=== PATIENT | female | born 1955 | race Caucasian/White ===

== ENCOUNTER 2019-05-04 13:04 | Outpatient (CLI) | payer MEDICAID, SELFPAY ==
[2019-05-04 14:28] LABS: Basophils % 0.7 %; Eosinophils # 0.2 10^3/uL (0.0-0.8); Eosinophils % 3.9 %; Hematocrit 38.1 % (37.0-47.0); Hemoglobin 11.9 g/dL (11.5-15.3); Lymphocytes % 17.6 %; Mean Corpuscular HGB Conc 31.2 g/dL (30.0-36.0); Mean Corpuscular Hemoglobin 30.1 pg (28.0-34.0); Mean Corpuscular Volume 96.5 fL (81-99); Mean Platelet Volume 10.3 fL (7.4-10.4); Monocytes # 0.6 10^3/uL (0.2-0.9); Monocytes % 11.8 %; Neutrophils # 3.6 10^3/uL (1.8-7.7); Neutrophils % 65.6 %; Nucleated Red Blood Cells % 0 %; Platelet Count 257 10^3/cmm (130-400); Red Blood Count 3.95 10^6/uL (4.1-5.3); Red Cell Distribution Width 14.8 % (12.1-15.1); White Blood Count 5.4 10^3/uL (4.0-10.0)
[2019-05-04 14:58] LABS: Alanine Aminotransferase 15 U/L (0-33); Albumin Level 3.5 g/dL (3.5-5.2); Alkaline Phosphatase 65 IU/L (35-105); Aspartate Amino Transferase 15 U/L (0-32); Blood Urea Nitrogen 17 mg/dL (8-23); Calcium 7.9 mg/Dl (8.8-10.2); Carbon Dioxide 25 mmol/L (22-29); Chloride 95 mmol/L (98-107); Globulin 2.6 g/dL (1.3-4.6); Glucose 78 mg/dL (74-106); Sodium 137 mmol/L (136-145); Total Bilirubin 0.4 mg/dL (0.15-1.2); Total Protein 6.1 g/dL (6.6-8.7)
== END 2019-05-04 13:05 | disposition home or self-care (01) ==
LOC: ONCMED 17:04
PROVIDERS: Visit Provider Internal Medicine Hematology & Oncology
DX: C54.1 Malignant neoplasm of endometrium (principal); C79.51 Secondary malignant neoplasm of bone; C64.9 Malignant neoplasm of unspecified kidney, except renal pelvis
CPT/HCPCS: 80053; 85025

== ENCOUNTER 2019-05-09 13:40 | Outpatient (CLI) | payer MEDICAID, SELFPAY ==
[2019-05-09] MEDS: denosumab 120 mg SDV SUBCUT (14:31)
--- NOTE | 2019-05-15 09:45 | ONC FU_ITS ---
Delfina Tolentino Patient Note Patient: Shamika Hickman Unit #: [id number]: [id number] Dictated By: Tiffany DavenportDate of Visit: May 09, 2019 Onc MED Follow-Up/Prog Note Chief Complaint: Metastatic renal cell carcinoma History of Present Illness: Mrs. Shamika Hickman is a 63-year-old female who was recently diagnosed with metastatic renal cell carcinoma as per patient and medical record in 2012 she developed postmenopausal bleeding and was diagnosed with ER/OR positive endometrial carcinoma FIGO grade 1, and CT scan of abdomen showed right ovarian mass, lytic bone lesion, left renal mass and indeterminate inguinal and iliac lymphadenopathy . And then patient had some social issues she moved from [place] to [place] close to her family and recently she was evaluated by DES[employer] CELL [employer]INEER and urologist for combined cytoreductive nephrectomy and hysterectomy. In January this year she underwent left lateral lymph node biopsy and cytology was negative in late January 2018 she sustained a pathological fracture of left humerus which he was initially treated with splinting and eventually seen by Dr. Ivan and on 03/15/2018 she underwent left humerus ORIF, curettage and cementation. The pathology confirmed metastatic clear cell carcinoma and she also underwent T9 core biopsy which was also consistent with clear cell carcinoma and she has not undergone any further workup for ovarian mass. Given her evidence of metastatic involvement cytoreductive nephrectomy and hysterectomy was put on hold. Patient was referred to [facility] in [place] , on 03/22/[address] Sebastian Spencer who recommended and started her on cabozantinib 20 mg by mouth daily, and also recommended noncontrasted CT scan of chest abdomen pelvis and bone scan but patient did not go for that because of transportation issues. And CT scan of chest abdomen pelvis done on 05/12/2018 showed bilateral upper and midlung zone innumerable less than 5 mm pulmonary nodules e.g. metastatic disease versus atypical pneumonia. cabometyx was increased to 40 milligrams daily tolerated well with normal blood counts and her dose was increased to 60 mg by mouth daily on 07/28/2018 Mild cardiomegaly Left kidney superior pole 5.3 x 6.5% 0.5 cm mass No significant change in right radial mixed solid and cystic mass with calcifications Mild bilateral inguinal lymphadenopathy. Bone scan done on 05/12/2018 showed right sixth rib, distal sternum and left humerus metastatic disease status post left humerus fracture with internal fixation Chronic renal failure on hemodialysis MRI of the head without contrast from 07/14/2017 reported T2 hyperintense soft tissue nodule involving the right parietal occipital calvarium. This involves the inner outer tables with extension into the scalp. This lesion measures approximately 1.5 x 1.6 x 1.8 cm suspicious for metastatic disease. No other visualized calvarial lesions. Mild small vessel changes with moderate parenchymal volume loss. Partial opacification mastoid air cells bilaterally. Single punctuate focus of hemosiderin in the left frontal white matter. No other significant findings. Referred to radiology for CT-guided biopsy of scalp mass Which confirmed clear cell carcinoma Underwent excision of this mass on 09/22/2018 final pathology report showed metastatic clear cell carcinoma Follow-up CT scan of chest abdomen pelvis done on 12/22/2018 showed resolved previously widespread nodularity of lung parenchyma since 05/12/2018 Stable parenchymal scarring left upper and lower lobes Improvement in the previous bilateral axillary lymphadenopathy Lytic bony metastatic disease with mixed therapeutic response. Decrease in bulk of previous upper pole left renal mass Progressive lytic metastatic disease of L2 vertebra and new lytic lesion of right L4 transverse process. Marginal increase in size of right ovarian mass Improvement in previous mild bilateral inguinal lymphadenopathy CT scan of head done on 12/30/2018 showed no evidence of intracranial hemorrhage or mass effect right partial craniotomy with mesh cranioplasty. Patient was referred to [facility] oncology in [place] where she saw Dr. Otoole on 01/25/2019 and as per her evaluation she is recommended Femara 2.5 mg by mouth daily for her newly diagnosed endometrial cancer and also wants to review and discuss regarding timing of surgery. Patient had episode of TIA on 03/05/2019 for which she was admitted to hospital and CT scan of head was done on 03/05/2019 which showed no evidence of brain metastases or any acute changes. Patient presented with difficulty in speech and confusion but during hospital stay she improved no TPA was considered because of history of renal cell carcinoma with brain metastases Ms. Hickman is here today for follow-up. She continues with the cabometyx for the renal cancer and Femara for the endometrial cancer. She is due for Xgeva today due to bone involvement. This will be her third dose according to our chart. She has tolerated the Xgeva well. She states in regard to the cabometyx she has had significant diarrhea. She states she has been taking 2 tablets daily but has had so much diarrhea she has had hard to make it to the stool sometimes. She has tried [id number] Imodium once in a while but does not always have it available due to pricing. She states it has not worked that well anyway. She does continue with dialysis 3 times a week. She denies any fever or chills. She is had no nausea or vomiting. She denies any new pain. She is had no mouth sores, sore throat or difficulty swallowing. Her energy is marginal. She states her appetite is fair. Her ECOG is 2. Past Medical History: Chronic kidney disease Congestive heart failure Depression Endometrial cancer Hyperlipidemia Hypertension Ovarian mass Peripheral neuropathy Pulmonary hypertension Type II diabetes Past Surgical History: Hernia repair Left humerus ORIF Left inguinal lymph node biopsy Allergies: No Known Allergies. Medications: AmLODIPine Besylate 1 (10 mg) Tablet Oral daily Calcium Acetate (Phos Binder) 2 Capsule (of 667 mg) Tablet Oral t.i.d. carbometyx 60 mg (of 20 mg) Tablet Oral daily D-1000 1 Tablet (of 1000 Units) Oral daily Furosemide 1 Tablet (of 40 mg) Oral daily HumaLOG Subcutaneous HydrALAZINE HCl 1 (25 mg) Tablet Oral four times a day MetOLazone 1 Tablet (of 5 mg) Oral b.i.d. Metoprolol Tartrate 1 (25 mg) Tablet Oral b.i.d. Senna-Plus 2 (8.6-50 mg) Tablet Oral b.i.d. Simvastatin 1 (40 mg) Tablet Oral at bedtime Sodium Bicarbonate 1 Tablet (of 650 mg) Oral daily Family History: Ms. Hickman's mother at age 80: aneurysm. Ms. Hickman's father at age 70: Cancer. Social History: Ms. Hickman is single and she is a disabled. Ms. Hickman has never smoked. She has no history of drinking. Review Of Symptoms: Constitutional Denies fevers, chills, night sweats, excessive fatigue or weight loss. Allergic/Immunologic No reactions. Eyes Denies significant visual changes. No diplopia. No amaurosis. ENMT Denies changes in hearing, sore throat, mouth sores, difficulty or changes in swallowing ability, and/or sinus drainage. Endocrine No diabetes, thyroid disease or hormone replacement. Denies hot flashes or night sweats. Hematologic/Lymphatic Denies easy bruising or bleeding. The patient denies any tender or palpable lymph nodes. Respiratory Denies dyspnea on exertion, chest pain, cough or hemoptysis. Denies orthopnea. Cardiovascular Denies anginal chest pain, palpitations or orthopnea. Gastrointestinal Denies nausea, vomiting, GI bleeding, or constipation. Denies change in bowel habits and/or stool color, no heartburn or early satiety. Diarrhea with cabometyx. Genitourinary (F) No hematuria, hesitancy, incontinence, vaginal bleeding, discharge or other problems with urination. Musculoskeletal Denies joint pain, swelling or redness. No decreased range of motion. Integumentary Denies chronic rashes, inflammation, ulcerations or skin changes. Neurologic Denies headache, blurred vision, and no areas of focal weakness or numbness. Normal gait. No sensory problems. Psychiatric Denies insomnia, depression, casi or mood swings. Vital Signs: Performed on May 09, 2019 13:51 Height - 62.00 in Weight - 169.8 lbs (HIGH) BSA - 1.78 sq.m BMI - 31.06 (HIGH) Temperature - 97.3 F (LOW) Pulse - 72 /min Respiration - 24 /min BP - 164/92 mm(hg) (HIGH) O2 Sat - 98 % Pain - 0,2 - Ambulatory/capable of all self-care, unable to perform any work activities. Up and about more than 50% of waking hours. (ECOG) Physical Examination: Constitutional Alert, oriented, no acute distress. Skin pink, warm and dry. Head Normocephalic; atraumatic. She has a nodule on the posterior aspect of the right side of her calvarium. Eyes Conjunctivae and sclerae are clear and without icterus. Pupils are reactive and equal. ENMT Sinuses are nontender. No oral exudates, ulcers, masses, thrush or mucositis. Oropharynx clear. Tongue normal. Neck Supple without masses or thyromegaly. No jugular venous distension. Hematologic/Lymphatic No petechiae or purpura. No tender or palpable lymph nodes in the cervical or supraclavicular areas. Respiratory Lungs are clear to auscultation without rhonchi or wheezing. Cardiovascular Regular rate and rhythm of heart without murmurs,clicks, gallops or rubs. Abdomen Non-tender, non-distended, no masses, ascites. Good bowel sounds noted in all quads. No guarding or rebound tenderness. No pulsatile masses. Back/Spine Non-tender to palpation. Extremities No visible deformities, no cyanosis, clubbing or edema. Pulses 4+ and equal bilaterally. Musculoskeletal No tenderness or swelling, normal range of motion without obvious weakness. Integumentary No rashes or lesions. Neurologic No sensory or motor deficits, normal cerebellar function, normal gait. Psychiatric Alert and oriented times three. Coherent speech. Verbalizes understanding of our discussions today. Laboratory:Test performed on May 04, 2019 09:20 Glucose 78 mg/dL BUN 17 mg/dL Creatinine 6.1 mg/dL Cr Clearance (Est) 11.78 mL/min Sodium 137 mmol/L Potassium 3.0 mmol/L Chloride 95 mmol/L CO2 25 mmol/L Calcium 7.9 mg/dL Protein, Total 6.1 g/dL Albumin 3.5 g/dL Globulin 2.6 g/dL Bilirubin, Total 0.4 mg/dL Alkaline Phosphatase 65 IU/L AST (SGOT) 15 IU/L ALT (SGPT) 15 IU/L WBC 5.4 10^9/L RBC 3.95 10^12/L HGB 11.9 g/dL HCT 38.1 % MCV 96.5 fl MCH 30.1 pg MCHC 31.2 g/dL RDW 14.8 % Platelet Count 257 10^9/L MPV 10.3 fL Neutrophils (Gran) 3.6 10^9/L Lymphocytes 1.0 10^9/L Monocytes 0.6 10^9/L Eosinophils 0.2 10^9/L Basophils 0.0 10^9/L Neutrophil % 3.9 % Manual Lymphocytes 17.6 % Manual Monocytes 11.8 % Manual Eosinophils 3.9 % Manual Basophils 0.7 % NRBCs 0.0 /100 WBC Test performed on Jan 03, 2019 10:02 CA-125 54.6 U/mL Impression: Metastatic renal cell carcinoma with left humerus involvement status post left humeral fracture status post ORIF in February 2018 and T9, confirmed with biopsy On cabometyx 40 mg by mouth daily Grade 1 endometrial carcinoma further treatment e.g. hysterectomy is on hold because of recently diagnosed metastatic renal cell carcinoma. Now on Femara 2.5 mg daily Ovarian mass of unknown etiology, oophorectomy is on hold because of above-mentioned issue. History of pulmonary hypertension History of chronic renal disease .On hemodialysis now CT scan of chest abdomen pelvis done on 05/12/2018 showed bilateral upper and mid lung zone innumerable less than 5 mm pulmonary nodules metastatic disease versus atypical pneumonia Multiple osseous metastatic disease potential involvement of T9 Bilateral axillary lymphadenopathy may be reactive due to edema or metastatic disease cannot be excluded. Left kidney is. Pole 5.3 x 6.5 x 7.5 No significant change in right ovarian mixed solid and cystic mass with calcification malignant ovarian neoplasm within the differential .Bone scan done on 05/12/2018 showed increase uptake in right lateral sixth rib, distal sternum, left humerus and status post fixation pathological fracture left humerus, increasing uptake throughout the largest portion of left humerus MRI of the head without contrast from 07/14/2017 reported T2 hyperintense soft tissue nodule involving the right parietal occipital calvarium. This involves the inner outer tables with extension into the scalp. This lesion measures approximately 1.5 x 1.6 x 1.8 cm suspicious for metastatic disease. No other visualized calvarial lesions. Mild small vessel changes with moderate parenchymal volume loss. Partial opacification mastoid air cells bilaterally. Single punctuate focus of hemosiderin in the left frontal white matter. No other significant findings. Underwent excisional biopsy on 09/22/2018 showed metastatic clear cell carcinoma. Plan: 1. Hold cabometyx today until followup due to significant diarrhea. She is due to increase her dose to 3 tablets (from 2 tablets daily) next week. 2. Her potassium from 05/04/2019 was 3.0. Will replace potassium today although diarrhea has improved. 3. Potassium and Lomotil to [facility] in [place]. We did discuss hydration today but she felt she had improved and didn't want to do that today. 4. Xgeva 120 mg due today-will proceed. 5. Continue Femara for endometrial cancer. 6. Return in 1 week for followup with Dr Brady for further plan of care. CBC, CMP at followup. 7. Labs from 05/04/2019 were reviewed in detail and discussed with Ms. Hickman and a copy was given to her. WBC 5.4, hemoglobin 11.9, platelets 257,000 ANC is 3600 potassium 3.0 random glucose was 78 creatinine 6.1 (on dialysis) LFTs are normal alkaline phosphatase was 65. 8. Ms. Hickman was instructed to contact us in the interim should questions or problems arise. Signed By: Tiffany Davenport-, AOCNP Darling Brady MD <<Signature on File>>
== END 2019-05-09 13:41 | disposition home or self-care (01) ==
LOC: ONCMED 13:42
PROVIDERS: Visit Provider Nurse Practitioner
DX: C79.51 Secondary malignant neoplasm of bone (principal); C54.1 Malignant neoplasm of endometrium; C64.2 Malignant neoplasm of left kidney, except renal pelvis; I51.7 Cardiomegaly; N18.6 End stage renal disease; R19.7 Diarrhea, unspecified; R91.8 Other nonspecific abnormal finding of lung field; N83.201 Unspecified ovarian cyst, right side; I13.2 Hypertensive heart and chronic kidney disease with heart failure and with stage 5 chronic kidney disease, or end stage renal disease; I50.9 Heart failure, unspecified; G62.9 Polyneuropathy, unspecified; I27.20 Pulmonary hypertension, unspecified; E11.22 Type 2 diabetes mellitus with diabetic chronic kidney disease; Z99.2 Dependence on renal dialysis; Z17.0 Estrogen receptor positive status [ER+]; Z79.899 Other long term (current) drug therapy; Z79.4 Long term (current) use of insulin; Z79.811 Long term (current) use of aromatase inhibitors; Z86.73 Personal history of transient ischemic attack (TIA), and cerebral infarction without residual deficits
CPT/HCPCS: 36415; 80048; 83735; 85025; 96372; 99214; J0897

== ENCOUNTER 2019-05-18 05:39 | Outpatient (RCR) | payer MEDICAID, SELFPAY ==
[2019-05-16 12:53] LABS: Basophils # 0.1 10^3/uL (0.0-0.1); Basophils % 0.8 %; Eosinophils # 0.2 10^3/uL (0.0-0.8); Eosinophils % 3.1 %; Hematocrit 35.4 % (37.0-47.0); Hemoglobin 11.2 g/dL (11.5-15.3); Lymphocytes # 1.1 10^3/uL (0.8-4.8); Lymphocytes % 17.8 %; Mean Corpuscular HGB Conc 31.6 g/dL (30.0-36.0); Mean Corpuscular Hemoglobin 29.9 pg (28.0-34.0); Mean Corpuscular Volume 94.4 fL (81-99); Mean Platelet Volume 10.7 fL (7.4-10.4); Monocytes # 0.5 10^3/uL (0.2-0.9); Monocytes % 8.4 %; Neutrophils # 4.5 10^3/uL (1.8-7.7); Neutrophils % 69.6 %; Nucleated Red Blood Cells % 0 %; Platelet Count 251 10^3/cmm (130-400); Red Blood Count 3.75 10^6/uL (4.1-5.3); Red Cell Distribution Width 14.6 % (12.1-15.1); White Blood Count 6.4 10^3/uL (4.0-10.0)
[2019-05-16 13:06] LABS: Anion Gap 19.2 (5-19); Blood Urea Nitrogen 16 mg/dL (8-23); Carbon Dioxide 24 mmol/L (22-29); Chloride 99 mmol/L (98-107); Glomerular Filtration Rate 7.3 mL/min (90-130); Glucose 78 mg/dL (74-106); Magnesium 1.6 mg/dL (1.7-2.3); Potassium 4.2 mmol/L (3.5-5.1); Sodium 138 mmol/L (136-145)
--- NOTE | 2019-05-18 14:32 | ONC FU_ITS ---
Dr. Brady follow up note Patient: Shamika Hickman Unit #: [id number]: [id number] Dicatated By: Nathan Brady M.D.Date of Visit:May 18, 2019 Onc Med Follow-up/Prog Note History of Present Illness: Mrs. 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 In January this year she underwent left lateral lymph node biopsy and cytology was negative in late January 2018 she sustained a pathological fracture of left humerus which he was initially treated with splinting and eventually seen by Dr. Ivan and on 03/15/2018 she underwent left humerus ORIF, curettage and cementation. The pathology confirmed metastatic clear cell carcinoma and she also underwent T9 core biopsy which was also consistent with clear cell carcinoma and she has not undergone any further workup for ovarian mass. Given her evidence of metastatic involvement cytoreductive nephrectomy and hysterectomy was put on hold. Patient was referred to [facility] in [place] , on 03/22/[address] Sebastian Spencer who recommended and started her on cabozantinib 20 mg by mouth daily, and also recommended noncontrasted CT scan of chest abdomen pelvis and bone scan but patient did not go for that because of transportation issues. And CT scan of chest abdomen pelvis done on 05/12/2018 showed bilateral upper and midlung zone innumerable less than 5 mm pulmonary nodules e.g. metastatic disease versus atypical pneumonia. cabometyx was increased to 40 milligrams daily tolerated well with normal blood counts and her dose was increased to 60 mg by mouth daily on 07/28/2018 Mild cardiomegaly Left kidney superior pole 5.3 x 6.5% 0.5 cm mass No significant change in right radial mixed solid and cystic mass with calcifications Mild bilateral inguinal lymphadenopathy. Bone scan done on 05/12/2018 showed right sixth rib, distal sternum and left humerus metastatic disease status post left humerus fracture with internal fixation Chronic renal failure on hemodialysis MRI of the head without contrast from 07/14/2017 reported T2 hyperintense soft tissue nodule involving the right parietal occipital calvarium. This involves the inner outer tables with extension into the scalp. This lesion measures approximately 1.5 x 1.6 x 1.8 cm suspicious for metastatic disease. No other visualized calvarial lesions. Mild small vessel changes with moderate parenchymal volume loss. Partial opacification mastoid air cells bilaterally. Single punctuate focus of hemosiderin in the left frontal white matter. No other significant findings. Referred to radiology for CT-guided biopsy of scalp mass Which confirmed clear cell carcinoma Underwent excision of this mass on 09/22/2018 final pathology report showed metastatic clear cell carcinoma .Follow-up CT scan of chest abdomen pelvis done on 12/22/2018 showed resolved previously widespread nodularity of lung parenchyma since 05/12/2018 Stable parenchymal scarring left upper and lower lobes Improvement in the previous bilateral axillary lymphadenopathy Lytic bony metastatic disease with mixed therapeutic response. Decrease in bulk of previous upper pole left renal mass Progressive lytic metastatic disease of L2 vertebra and new lytic lesion of right L4 transverse process. Marginal increase in size of right ovarian mass Improvement in previous mild bilateral inguinal lymphadenopathy CT scan of head done on 12/30/2018 showed no evidence of intracranial hemorrhage or mass effect right partial craniotomy with mesh cranioplasty. Patient was referred to [facility] oncology in [place] where she saw Dr. Otoole on 01/25/2019 and as per her evaluation she is recommended Femara 2.5 mg by mouth daily for her newly diagnosed endometrial cancer and also wants to review and discuss regarding timing of surgery. Patient had episode of TIA on 03/05/2019 for which she was admitted to hospital and CT scan of head was done on 03/05/2019 which showed no evidence of brain metastases or any acute changes. Patient presented with difficulty in speech and confusion but during hospital stay she improved no TPA was considered because of history of renal cell carcinoma with brain metastases She continues with the cabometyx for the renal cancer and Femara for the endometrial cancer.And on monthly Xgeva. Episode of diarrhea which improved with holding off cabometyx but patient said she started taking 40 mg daily for 2 days then gone up to schedule dose 60 mg daily 3 days ago now tolerating well with mild diarrhea, which is improving. Clinically as per patient she has history of constipation for which she took milk of magnesia on a regular basis and also last month she was treated with oral antibiotics that could be also contributing to her diarrhea. Otherwise no fever or chills no nausea or vomiting no abdominal pain no constipation but 2-3 well formed bowel movements per day no hematuria or dysuria. Tolerating cabometyx well otherwise Medications: AmLODIPine Besylate 1 (10 mg) Tablet Oral daily, Calcium Acetate (Phos Binder) 2 Capsule (of 667 mg) Tablet Oral t.i.d., carbometyx 60 mg (of 20 mg) Tablet Oral daily, D-1000 1 Tablet (of 1000 Units) Oral daily, Furosemide 1 Tablet (of 40 mg) Oral daily, HumaLOG Subcutaneous, HydrALAZINE HCl 1 (25 mg) Tablet Oral four times a day, MetOLazone 1 Tablet (of 5 mg) Oral b.i.d., Metoprolol Tartrate 1 (25 mg) Tablet Oral b.i.d., PROzac 1 Capsule (of 20 mg) Oral daily, Senna-Plus 2 (8.6-50 mg) Tablet Oral b.i.d., Simvastatin 1 (40 mg) Tablet Oral at bedtime, Sodium Bicarbonate 1 Tablet (of 650 mg) Oral daily Allergies: No Known Allergies. Review of Systems: Review of Systems is not available for this patient. Vital Signs: Performed on May 18, 2019 13:03 Height - 62.00 in Weight - 166.8 lbs (LOW) BSA - 1.77 sq.m BMI - 30.51 (HIGH) Temperature - 98.2 F (LOW) Pulse - 78 /min Respiration - 24 /min BP - 161/80 mm(hg) (HIGH) O2 Sat - 97 % Pain - 0 Performance Status: 2 - Ambulatory/capable of all self-care, unable to perform any work activities. Up and about more than 50% of waking hours. (ECOG) Physical Examination: ENMT - No oral exudates, ulcers, masses, thrush or mucositis. Oropharynx clear. Tongue normal, Respiratory - Lungs are clear to auscultation without rhonchi or wheezing, Cardiovascular - Regular rate and rhythm of heart, Abdomen - Non-tender, non-distended, Good bowel sounds. No guarding or rebound tenderness. No pulsatile masses, Extremities - 1+ edema. Lab/Imaging: Test performed on May 04, 2019 09:20 Cr Clearance (Est) 11.78 mL/min Alkaline Phosphatase 65 IU/L Neutrophils (Gran) 3.6 10^9/L Eosinophils 0.2 10^9/L Basophils 0.0 10^9/L Neutrophil % 3.9 % Manual Lymphocytes 17.6 % Manual Monocytes 11.8 % Manual Eosinophils 3.9 % Manual Basophils 0.7 % NRBCs 0.0 /100 WBC Test performed on Mar 30, 2019 09:35 Eosinophil % 8.5 % Basophils % 0.9 % Test performed on Jan 03, 2019 10:02 CA-125 54.6 U/mL Impression: Metastatic renal cell carcinoma with left humerus involvement status post left humeral fracture status post ORIF in February 2018 and T9, confirmed with biopsy On cabometyx 40 mg by mouth daily Grade 1 endometrial carcinoma further treatment e.g. hysterectomy is on hold because of recently diagnosed metastatic renal cell carcinoma. Now on Femara 2.5 mg daily Ovarian mass of unknown etiology, oophorectomy is on hold because of above-mentioned issue. History of pulmonary hypertension History of chronic renal disease .On hemodialysis now CT scan of chest abdomen pelvis done on 05/12/2018 showed bilateral upper and mid lung zone innumerable less than 5 mm pulmonary nodules metastatic disease versus atypical pneumonia Multiple osseous metastatic disease potential involvement of T9 Bilateral axillary lymphadenopathy may be reactive due to edema or metastatic disease cannot be excluded. Left kidney is. Pole 5.3 x 6.5 x 7.5 No significant change in right ovarian mixed solid and cystic mass with calcification malignant ovarian neoplasm within the differential .Bone scan done on 05/12/2018 showed increase uptake in right lateral sixth rib, distal sternum, left humerus and status post fixation pathological fracture left humerus, increasing uptake throughout the largest portion of left humerus MRI of the head without contrast from 07/14/2017 reported T2 hyperintense soft tissue nodule involving the right parietal occipital calvarium. This involves the inner outer tables with extension into the scalp. This lesion measures approximately 1.5 x 1.6 x 1.8 cm suspicious for metastatic disease. No other visualized calvarial lesions. Mild small vessel changes with moderate parenchymal volume loss. Partial opacification mastoid air cells bilaterally. Single punctuate focus of hemosiderin in the left frontal white matter. No other significant findings. Underwent excisional biopsy on 09/22/2018 showed metastatic clear cell carcinoma. Plan: Discussed with patient regarding her labs white blood count 6.4 hemoglobin 11.2 crit 35.4 platelets 251,000 CMP within normal limit except creatinine 5.9 Clinically, patient is doing well tolerating cabometyx 60 mg by mouth daily well but with expected side effects e.g. diarrhea which could be multifactorial, now improving pain. We'll continue to monitor. Tolerating Femara for endometrial cancer, well. Next Return to clinic in 3 months with CBC CMP and for dose of Xgeva. Signed By: Nathan Brady M.D. <<Signature on File>>
== END 2019-05-26 23:59 | disposition home or self-care (01) ==
LOC: ONCMED 05:39
PROVIDERS: Nurse Practitioner; Visit Provider Internal Medicine Hematology & Oncology
DX: C54.1 Malignant neoplasm of endometrium (principal); C64.2 Malignant neoplasm of left kidney, except renal pelvis; C79.51 Secondary malignant neoplasm of bone; C79.31 Secondary malignant neoplasm of brain; I51.7 Cardiomegaly; N18.9 Chronic kidney disease, unspecified; I27.20 Pulmonary hypertension, unspecified; Z99.2 Dependence on renal dialysis; Z79.811 Long term (current) use of aromatase inhibitors; Z79.899 Other long term (current) drug therapy; Z92.21 Personal history of antineoplastic chemotherapy; Z86.14 Personal history of Methicillin resistant Staphylococcus aureus infection
CPT/HCPCS: 36415; 80048; 83735; 85025; 99214

== ENCOUNTER 2019-06-13 05:53 | Outpatient (RCR) | payer MEDICAID, SELFPAY | END 2019-06-24 23:59 | disposition home or self-care (01) | LOC: ONCMED 05:53 | PROVIDERS: Visit Provider Internal Medicine Hematology & Oncology | DX: C79.51 Secondary malignant neoplasm of bone (principal) | CPT/HCPCS: 96372 ==

== ENCOUNTER 2019-07-07 14:04 | Emergency (ER) | payer MEDICAID, SELFPAY | END 2019-07-07 16:25 | disposition admitted as inpatient to this hospital (09) | LOC: ER 07-20 17:02 | PROVIDERS: Emergency Provider Emergency Medicine | DX: Z01.89 Encounter for other specified special examinations (principal) | CPT/HCPCS: 12345; 36600; 71045; 80051; 82810; 83986; 85025; 93005; 96365; 96375; 99282; 99285 ==

== ENCOUNTER 2019-07-07 14:04 | Inpatient (IN) | payer MEDICAID, SELFPAY ==
[2019-07-07 14:10] VITALS: BP 142/77; PULSE 94; RESP 18; TEMP 36.4; O2SAT 96; BMI 29.2
[2019-07-07 14:25] VITALS: PULSE 80; RESP 18; O2SAT 95
--- NOTE | 2019-07-07 14:25 | ECG_ITS ---
Measurements Intervals [place] Rate: 77 P: 47 AL: 132 QRS: 2 QRSD: 110 T: 18 QT: 462 QTc: 525 SINUS RHYTHM PROLONGED QT INTERVAL Compared to ECG 03/05/2019 17:02:27 Prolonged QT interval now present Electronically Signed On 07-07-2019 15:38:06 CDT by Diaz Benoit M.D. [id number]
--- NOTE | 2019-07-07 14:25 | XR_ITS ---
WS: [id number] Portable AP upright chest, 07/07/2019 Clinical Data: pneumonia Comparison: Portable chest, 04/05/2019. Findings: No nodules, masses or effusions are seen. The heart is enlarged. Dialysis catheter enters t he right internal jugular vein and ends at the level of the right atrium. The pulmonary vascularity i s not increased. No pneumonia or pneumothorax is seen. There is an expansile sclerotic lesion of the lateral aspect of the right sixth rib. The proximal portion of an orthopedic plate is seen in the mid portion of the left humerus. XR/XR chest 1V portable [id number] Impression: 1. Cardiomegaly. 2. Expansile lesion of lateral aspect of right sixth rib.
--- NOTE | 2019-07-07 14:30 | ED_ITS ---
Entered by Anastasia Sahni, acting as scribe for Moon Johnson DO HPI - Weakness General: Chief complaint: Weakness Stated complaint: weakness, missed dialysis *1 week Time Seen by Provider: 07/07/19 14:24 Source: patient Mode of arrival: ambulatory Limitations: no limitations History of Present Illness: HPI Narrative: 63 yo female presents with abdomen pain and weakness. pt states this started a few days ago but worsened today. pt states the person taking her to dialysis had a emergency and has not been able to take her so she has not been receiving dialysis. pt has had fatigue. pt denies any other symptoms at this time. MD Complaint: generalized weakness Onset (ago): day(s) Duration: constant and progressively worsening Location: generalized Migration: none Severity: moderate Relieving factors: none Exacerbating factors: movement and other (walking and swelling due to missing dialysis) Associated symptoms: Reports other (weakness); Denies headache(s) Review of Systems General: Reports: 10 or more systems reviewed and unremarkable except in HPI and below Const: Reports: fatigue ENMT: Denies: throat pain Card: Reports: edema and swelling of feet/ankles Resp: Denies: shortness of breath or productive cough GI: Reports: abdominal pain (diffuse) Musc: Denies: back pain or extremity swelling Skin/Breast: Denies: rash Neuro: Denies: headache, numbness in extremities or weakness in extremities PFS ED PFSH: Social History Smoking and tobacco status: never smoked Physical Exam Const: COMMON NORMALS: no apparent distress and oriented x3 GENERAL APPEARANCE: cooperative; not in distress HENMT: COMMON NORMALS: normocephalic HEAD & SCALP: normal to inspection and normocephalic MOUTH: oral and palatal mucosa normal and lip normal THROAT: posterior oropharynx normal and tonsils normal Neck/C-Spine: COMMON NORMALS: full ROM, no lymphadenopathy, supple and no meningeal signs GENERAL: Yes normal visual inspection and Yes trachea midline Chest: COMMONS NORMALS: inspection of chest normal Resp: EFFORT & INSPECTION: Yes respiratory distress (mild) and Yes uses accessory muscles AUSCULTATION: rales Cardio: COMMON NORMALS: regular rate, regular rhythm, S1 normal heart sound, S2 normal heart sound and no murmurs RATE: regular rate RHYTHM: regular rhythm HEART SOUNDS: S1 normal and S2 normal PERIPHERAL PULSES: radial pulses present and dorsalis pedis pulses present : COMMON NORMALS: Yes no CVA tenderness BLADDER/KIDNEY EXAM: Yes no CVA tenderness Back/Pelvis: COMMON NORMALS: no CVA tenderness Extremity: COMMON NORMALS: normal to inspection, full ROM, normal capillary refill, no calf tenderness and no pedal edema GENERAL: Yes edema (plus 3 bilateral legs) Neuro: COMMON NORMALS: oriented x3, CN's II-XII intact bilaterally, moves all extremities and no focal motor deficits MENINGEAL SIGNS: Yes no meningeal signs Skin: COMMON NORMALS: no rashes or lesions noted GENERAL SKIN EXAM: no rashes or lesions noted Course Vital Signs: Vital signs: Vital Signs Temperature 98.1 F 07/07/19 16:17 Pulse Rate 80 07/07/19 16:17 Respiratory Rate 24 H 07/07/19 16:17 Blood Pressure 149/50 07/07/19 16:17 Pulse Oximetry 94 07/07/19 16:17 MDM - Weakness MDM Narrative: Medical decision making narrative: pt raul had dialysis in 1 week, she normally get it mon, es, wed. She has been quite swollen and a little short of breath, her ABG shows her pH is 7.148 ,Dr George telenephrologist states she will get the pt dialysed next. I will admit her to hospitalist, K is 4.2 on abg, ecg shows prolonged qtc of 494. normal qrs. 1543: Dr Simeon states she will come see her and will admit her to the floor. pts vss Lab Data: Attestation: I reviewed the patient's lab results. Labs: Lab Results 07/07/19 Range/Units 14:57 Specimen Type Venous Sample Site Brachial, right ABG pH 7.15 L* (7.35-7.45) ABG pCO2 31.2 L (35-45) mmHg ABG pO2 33.5 L* (80.0-100.0) mmH g ABG HCO3 10.8 L (22-26) mmol/L ABG O2 Saturation 48.0 ABG Base Excess -16.8 L (-2.0-2.0) mmol/ L Dean Test N/a Hematocrit 35.0 L (37-47) % Hgb O2 Saturation 47.2 L (95-100) % Carboxyhemoglobin 0.5 (0.4-20.1) %THgb Methemoglobin 1.2 (0.4-1.5) % Total Hemoglobin 11.4 L (12-16) g/dL Sodium 135.0 (131-143) mmol/L Potassium 4.2 (3.5-5.0) mmol/L Glucose 84.0 (70-115) mg/dL Ionized Calcium 0.7 L (1.1-1.4) mmol/L O2 Delivery Device Room air FiO2 21.0 % Mail Handler Sorter ID [id number] Imaging Data^: CXR: Radiologist's impression: [address] [address] XRay Report Signed Patient: Brigida Hickman #: [id number] : 8Acct#:[id number] Age/Sex: 63 / FADM Date: 07/07/19 Loc: ERRoom/Bed: Attending Dr: Ordering Provider/Ordering MD: Moon Johnson DO Date of Service: 07/07/19 Procedure(s): XR chest 1V portable 19502 Accession Number(s): [id number] Report Number: [id number] WS: [id number] Portable AP upright chest, 07/07/2019 Clinical Data: pneumonia Comparison: Portable chest, 04/05/2019. Findings: No nodules, masses or effusions are seen. The heart is enlarged. Dialysis catheter enters the right internal jugular vein and ends at the level of the right atrium. The pulmonary vascularity is not increased. No pneumonia or pneumothorax is seen. There is an expansile sclerotic lesion of the lateral aspect of the right sixth rib. The proximal portion of an orthopedic plate is seen in the midportion of the left humerus. XR/XR chest 1V portable [id number] Impression: 1. Cardiomegaly. 2. Expansile lesion of lateral aspect of right sixth rib. Dictated By:Mable Corona MD Signed By:Mable Coronaigned Date/Time:07/07/19 1456 EKG Data^: EKG 1: Attestation: I personally reviewed and interpreted this EKG as follows: EKG interpretation time: 14:40 Interpretation: sinus rhthym, rate 77, prolonged qt, normal st seg, some artifact present ABG Data^: ABG Interpretation 1: ABG results: venous result with a pH of 7.148 from her renal failure Discharge Plan Discharge Patient Disposition: Admitted As Inpatient Admit Provider: Stormy Simeon Clinical Impression: Metabolic acidosis Acute renal failure Qualifiers: Acute renal failure type: unspecified Qualified Code(s): N17.9 - Acute kidney failure, unspecified Condition: Stable Discharge Date/Time: 07/07/19 16:25 Coding Level of Care Code ED Audit Practice Intern for Chg Fwd Exam Comprehensive The documentation recorded by the Bora perla Bridget Annette, accurately reflects the service I personally performed and the decisions made by , Moon Johnson DO
--- NOTE | 2019-07-07 15:12 | PC.NURSE ---
Helped patient to bedside commode. Patient unable to urinate at this time.
[2019-07-07 15:14] LABS: ABG PCO2 31.2 mmHg (35-45); ABG PH Result 7.15 (7.35-7.45); Base Excess ABG -16.8 mmol/L (-2.0-2.0); Blood Gas Operator Identificat amh; Blood Gas Sample Site Brachial, right; Blood Gas Sample Type Venous; Carboxyhemoglobin 0.5 %THgb (0.4-20.1); HCO3 ABG 10.8 mmol/L (22-26); HGB O2 Sat 47.2 % (95-100); Ionized Calcium Level - ABG 0.7 mmol/L (1.1-1.4); Methemoglobin 1.2 % (0.4-1.5); Oxygen Device ROOM AIR; PO2 ABG 33.5 mmHg (80.0-100.0); Potassium Level - ABG 4.2 mmol/L (3.5-5.0); Total Hemoglobin 11.4 g/dL (12-16)
[2019-07-07 15:59] LABS: Basophils # 0.1 10^3/uL (0.0-0.1); Basophils % 0.4 %; Eosinophils # 0.1 10^3/uL (0.0-0.8); Eosinophils % 1.2 %; Hematocrit 33.8 % (37.0-47.0); Hemoglobin 10.5 g/dL (11.5-15.3); Lymphocytes % 9.1 %; Mean Corpuscular HGB Conc 31.1 g/dL (30.0-36.0); Mean Corpuscular Hemoglobin 30.7 pg (28.0-34.0); Mean Corpuscular Volume 98.8 fL (81-99); Mean Platelet Volume 11.8 fL (7.4-10.4); Monocytes # 0.9 10^3/uL (0.2-0.9); Monocytes % 7.7 %; Neutrophils % 78.4 %; Nucleated Red Blood Cells % 0 %; Platelet Count 199 10^3/cmm (130-400); Red Blood Count 3.42 10^6/uL (4.1-5.3); Red Cell Distribution Width 15.3 % (12.1-15.1); White Blood Count 11.5 10^3/uL (4.0-10.0)
[2019-07-07 16:17] VITALS: BP 149/50; PULSE 80; RESP 24; TEMP 36.7; O2SAT 94
--- NOTE | 2019-07-07 16:40 | PC.ADMIT ---
[id number] Admission Note: The patient,Shamika Hickman,63 y/o, was given written information regarding hospital policies, unit procedures and contact persons. Patient's smoking status: never smoked. Vital Signs - 8 hr 07/07/19 14:10 07/07/19 14:25 07/07/19 16:17 Temperature 97.5 F L 98.1 F Pulse Rate 80 80 Pulse Rate [Left Radial] 94 Respiratory Rate 18 18 24 H Blood Pressure 149/50 Blood Pressure [Left Arm] 142/77 Pulse Oximetry 96 95 94
--- NOTE | 2019-07-07 16:41 | PC.NURSE ---
Admission Pt arrived to floor, transferred over into bed, no signs of distress noted.
[2019-07-07 16:53] VITALS: BP 138/79; PULSE 78; RESP 20; O2SAT 93
--- NOTE | 2019-07-07 16:57 | P.HP_ITS ---
Providers/Chief Complaint Admitting Physician: Stormy Simeon MD Chief Complaint: WEAK History of Present Illness Shamika Hickman is a 63 year old female with metastatic renal cell ca with metastatic disease to brain, bones and likely lungs currently on chemo with cabometyx with side effects of diarrhea. She is on HD since at least 2 years. Presents today with c/o increasing genralized weakness, cramping in all extremities, fatigue because of which she could not make it to her scheduled dialysis session today. Over the past week she has noticed increased swelling in B/L lower extremities, became more tachypneic today and prsented o the ER. no c/o fever, URi symptoms, cough. Chronic diarrhea+, no vomiting or abdominal pain. Review of Systems General: Reports: 10 or more systems reviewed and unremarkable except in HPI and below Const: Denies: fever, chills or body aches Eyes: Denies: change in vision, blurry vision or photophobia ENMT: Reports: hoarseness; Denies: throat pain, enlarged tonsils, painful swallowing or nasal congestion Card: Denies: chest pain, palpitations, irregular heart rhythm, edema, swelling of feet/ankles, lightheadedness, pre-syncope, shortness of breath on exertion or shortness of breath when lying down Resp: Reports: shortness of breath; Denies: productive cough, non-productive cough, wheezing, stridor, pain on inspiration, change in phlegm color, coughing up blood or chest congestion GI: Denies: abdominal pain, nausea, vomiting, vomiting blood, coffee grounds in vomit, difficulty swallowing, heartburn/indigestion, diarrhea, constipation, cramping, change in stool character, blood in stool or black tarry stool : Denies: flank pain, difficulty urinating, painful urination, urinary frequency, urinary urgency, urinary hesitancy or blood in urine Musc: Denies: neck pain, back pain, extremity pain, joint swelling, joint warmth or deformity Neuro: Denies: headache, numbness in extremities, weakness in extremities, changes in sensation, difficulty walking, frequent falls, dizziness, vertigo, behavioral changes, slurred speech or seizure-like activity Psych: Denies: anxiety, depression, suicidal ideation or homicidal ideation Endo: Denies: excessive urination, excessive thirst, tired all the time, cold intolerance or hot flashes Yang/Lymph: Denies: easy bruising or easy bleeding Medications/Allergies Home Medications Medication Instructions Recorded Confirmed Last Taken Type amlodipine 10 mg PO DAILY 07/07/19 07/07/19 Unknown History docusate sodium [Stool Softener] 100 mg PO DAILY PRN 07/07/19 07/07/19 Unknown History fluoxetine [Prozac] 20 mg PO DAILY 07/07/19 07/07/19 Unknown History furosemide 40 mg PO DAILY 07/07/19 07/07/19 Unknown History hydralazine 25 mg PO TID 07/07/19 07/07/19 Unknown History letrozole 2.5 mg PO DAILY 07/07/19 07/07/19 Unknown History metolazone 5 mg PO DAILY 07/07/19 07/07/19 Unknown History metoprolol tartrate 25 mg PO BID 07/07/19 07/07/19 Unknown History simvastatin 40 mg PO DAILY 07/07/19 07/07/19 Unknown History Allergies Allergy/AdvReac Type Severity Reaction Status Date / Time No Known Allergies Allergy Verified 07/07/19 14:14 PFSH Acute PFSH: Medical History (Updated 07/07/19 @ 17:11 by Stormy Simeon MD) End stage renal disease Metastatic renal cell carcinoma Pathological fracture Pulmonary hypertension TIA (transient ischemic attack) Uterine cancer Social History Smoking and tobacco status: never smoked Vitals/I&O/Wt Last Vital Signs Temp 98.1 F 07/07/19 16:17 Pulse 80 07/07/19 16:17 Resp 24 H 07/07/19 16:17 BP 149/50 07/07/19 16:17 Pulse Ox 94 07/07/19 16:17 Weight last 48 hrs Weight 72.575 kg Physical Exam Narrative: EXAM NARRATIVE: GEN: Awake, alert and oriented, no acute distress CVS: S1S2 N RS: CTA B/L Abd: Soft, nt/nd , bs+ PANEL SAW OPERATOR: no focal neuro deficits Ext: B/L LE 3+ pitting edema Data : 07/07/19 15:48 A&P Assessment and plan (1) Hypertension: Status: Acute Code(s): I10 - Essential (primary) hypertension (2) End stage renal disease: Status: Acute Code(s): N18.6 - End stage renal disease (3) Metastatic renal cell carcinoma: Status: Acute Code(s): C64.9 - Malignant neoplasm of unspecified kidney, except renal pelvis (4) Metabolic acidosis: Status: Acute Code(s): E87.2 - Acidosis Additional A&P Information Admit to Med/surg Patient presenting with worsening fatigue, lethargy and increasing lower extremity edema over the past week and haaving missed dialysis as a result Planned for HD now , nephroloy consulted from ER CMP pending, K 4.2 on Abg Specimen marked ABG is VBG Hb stable no fever at this time and no localizing signs or symptoms of infection Blood cx taken from Er Full code Dvt ppx: heaprin Attestations Medical Necessity Statement*: need for HD Coding Level of Care Code Acute Care Coordination Manager for Chg Fwd Diagnoses Hypertension I10 End stage renal disease N18.6 Metastatic renal cell carcinoma C64.9 Metabolic acidosis E87.2
[2019-07-07] MEDS: heparin 5,000 unit/mL INJ 1 mL 5000 UNIT SUBCUT (17:23)
[2019-07-07 17:30] LABS: Alanine Aminotransferase 15 U/L (0-33); Alkaline Phosphatase 66 IU/L (35-105); Anion Gap 34.6 (5-19); Aspartate Amino Transferase 15 U/L (0-32); Chloride 98 mmol/L (98-107); Globulin 2.7 g/dL (1.3-4.6); Glomerular Filtration Rate 2.8 mL/min (90-130); Glucose 82 mg/dL (65-115); Potassium 4.6 mmol/L (3.5-5.1); Sodium 137 mmol/L (136-145); Thyroid Stimulating Hormone 14.89 uIU/mL (0.27-4.20); Total Bilirubin 0.3 mg/dL (0.15-1.2); Total Protein 5.7 g/dL (6.6-8.7)
[2019-07-07 17:35] VITALS: PULSE 78; RESP 20; O2SAT 93
[2019-07-07 17:46] LABS: Blood Urea Nitrogen 131 mg/dL (8-23); Carbon Dioxide 9 mmol/L (22-29); Osmolality Calculated 286 mOsm/kg (285-295)
[2019-07-07 17:47] LABS: Calcium 4.6 mg/dL (8.5-10.5)
[2019-07-07] MEDS: metoprolol tartrate 25 mg Tablet PO (18:22)
[2019-07-07 20:00] VITALS: BP 102/62; PULSE 78; RESP 18; TEMP 36.8; O2SAT 91
--- NOTE | 2019-07-07 20:49 | PC.NURSE ---
Patient transported to dialysis in her bed by nursing staff.
[2019-07-08] VITALS (7 sets, daily range): BP systolic 136–174; BP diastolic 58–91; PULSE 81–95; RESP 17–18; TEMP 36.3–37.3; O2SAT 90–92
[2019-07-08] MEDS: acetaminophen 325 mg Tablet 650 MG PO (04:35)
[2019-07-08] MEDS: heparin 5,000 unit/mL INJ 1 mL 5000 UNIT SUBCUT (04:36)
[2019-07-08 05:47] LABS: Basophils % 0.2 %; Eosinophils # 0.1 10^3/uL (0.0-0.8); Eosinophils % 0.9 %; Hematocrit 32.2 % (37.0-47.0); Hemoglobin 10.3 g/dL (11.5-15.3); Lymphocytes # 0.7 10^3/uL (0.8-4.8); Mean Corpuscular Hemoglobin 30.3 pg (28.0-34.0); Mean Corpuscular Volume 94.7 fL (81-99); Mean Platelet Volume 11.1 fL (7.4-10.4); Monocytes # 0.7 10^3/uL (0.2-0.9); Neutrophils # 7.1 10^3/uL (1.8-7.7); Neutrophils % 81.7 %; Nucleated Red Blood Cells % 0 %; Platelet Count 168 10^3/cmm (130-400); Red Cell Distribution Width 15.1 % (12.1-15.1); White Blood Count 8.7 10^3/uL (4.0-10.0)
[2019-07-08 06:03] LABS: Alanine Aminotransferase 13 U/L (0-33); Albumin Level 2.6 g/dL (3.5-5.2); Alkaline Phosphatase 67 IU/L (35-105); Anion Gap 21.1 (5-19); Aspartate Amino Transferase 16 U/L (0-32); Blood Urea Nitrogen 52 mg/dL (8-23); Carbon Dioxide 22 mmol/L (22-29); Chloride 99 mmol/L (98-107); Glomerular Filtration Rate 5.4 mL/min (90-130); Glucose 89 mg/dL (65-115); Osmolality Calculated 286 mOsm/kg (285-295); Potassium 3.1 mmol/L (3.5-5.1); Sodium 139 mmol/L (136-145); Total Bilirubin 0.3 mg/dL (0.15-1.2); Total Protein 5.6 g/dL (6.6-8.7)
[2019-07-08 06:24] LABS: Calcium 6.1 mg/dL (8.5-10.5)
[2019-07-08 06:27] LABS: 25 Hydroxy Vitamin D 5 ng/mL (30-100)
--- NOTE | 2019-07-08 06:45 | PM.CONSULT ---
Providers/Reason For Consult Consulting Physican/Specialty*: Natividad George DO, telenephrology - seen 07/07/2019 Reason for Consult*: ESRD Attending Physician: Stormy Simeon MD History of Present Illness History of Present Illness Shamika Hickman is a 63 year old female presenting to ER with CC of diffuse weakness and pain. Did not go to dialysis this week - did not have transportation. Last HD 06/28/2019. + metastatic renal cell CA to bone. Meds/Allergies Home Medications and Allergies Home Medications Medication Instructions Recorded Confirmed Type amlodipine 10 mg PO DAILY 07/07/19 07/07/19 History docusate sodium [Stool Softener] 100 mg PO DAILY PRN 07/07/19 07/07/19 History fluoxetine [Prozac] 20 mg PO DAILY 07/07/19 07/07/19 History furosemide 40 mg PO DAILY 07/07/19 07/07/19 History hydralazine 25 mg PO TID 07/07/19 07/07/19 History letrozole 2.5 mg PO DAILY 07/07/19 07/07/19 History metolazone 5 mg PO DAILY 07/07/19 07/07/19 History metoprolol tartrate 25 mg PO BID 07/07/19 07/07/19 History simvastatin 40 mg PO DAILY 07/07/19 07/07/19 History Allergies Allergy/AdvReac Type Severity Reaction Status Date / Time No Known Allergies Allergy Verified 07/07/19 14:14 Current Medications Current Medications Generic Name Dose Route Start Last Admin Trade Name Freq PRN Reason Stop Dose Admin Acetaminophen 650 mg 07/07/19 16:39 07/08/19 04:35 Tylenol PO 650 mg Q6H PRN Administration Mild/Mod Pain Or Temp >/= 101 Heparin Sodium (Beef Lung) 5,000 unit 07/07/19 16:45 07/08/19 04:36 Heparin SUBCUT 5,000 unit Q12H CORDELIA Administration Hydralazine HCl 25 mg 07/07/19 21:00 07/08/19 03:03 Apresoline PO Not Given TID CORDELIA Metoprolol Tartrate 25 mg 07/07/19 18:06 07/07/19 18:22 Lopressor PO 25 mg BID CORDELIA Administration PFSH Acute PFSH: Medical History End stage renal disease Metastatic renal cell carcinoma Pathological fracture Pulmonary hypertension TIA (transient ischemic attack) Uterine cancer Social History Smoking and tobacco status: never smoked Vitals/I&O/Wt Last Vital Signs Temp 97.8 F 07/08/19 03:57 Pulse 87 07/08/19 03:57 Resp 18 07/08/19 03:57 BP 157/58 07/08/19 03:57 Pulse Ox 90 07/08/19 03:57 07/07/19 07/07/19 07/08/19 14:59 22:59 06:59 Intake Total 354 / 354 180 / 534 Balance 354 / 354 180 / 534 Weight last 48 hrs Weight 72.575 kg A&P Additional A&P Information ESRD - HD 07/06 and 07/07 Coding Level of Care Code Acute Deep Submergence Vehicle Operator for Andrea Malcolm
--- NOTE | 2019-07-08 06:51 | PM.PN ---
Subjective Subjective: Interval history: feels hot , weak, + muscle aches Medications: Reviewed: Yes Vitals/I&O/Wt Last Vital Signs Temp 97.8 F 07/08/19 03:57 Pulse 87 07/08/19 03:57 Resp 18 07/08/19 03:57 BP 157/58 07/08/19 03:57 Pulse Ox 90 07/08/19 03:57 07/07/19 07/07/19 07/08/19 14:59 22:59 06:59 Intake Total 354 / 354 180 / 534 Balance 354 / 354 180 / 534 Weight last 48 hrs Weight 72.575 kg Physical Exam Const: COMMON NORMALS: no apparent distress Eye: COMMON NORMALS: no scleral icterus Neck/C-Spine: COMMON NORMALS: no JVD Resp: COMMON NORMALS: normal respiratory effort and clear to auscultation bilaterally AUSCULTATION: clear to auscultation bilaterally Cardio: COMMON NORMALS: no JVD, regular rate and regular rhythm RATE: regular rate RHYTHM: regular rhythm Extremity: COMMON NORMALS: no pedal edema Data : 07/08/19 05:23 07/08/19 05:23 Other Labs: PTH 1075 pg/mL, 25()H)D 5 albumin 2.6, Calcium 6, Mg 1.6, TSH 14.84 A&P Additional A&P Information Assessment: 1. ESRD 2. Metabolic acidosis due to missed dialysis - resolved 3. Hypokalemia, hypomagnesemia 4. Hypocalcemia, secondary hyperparathyroidism 5. Hypothyroid - defer to primary service Plan: HD today. 3 hours, minimal UF, higher Calcium bath, 3K bath. Replace K, Mg, calcium po. Add vitamin D3 and calcitriol She needs transportation arranged for outpatient dialysis Wednesday prior to discharge Attestations Medical Necessity Statement*: per primary service Coding Level of Care Code Acute Solid Waste Facility Operator for Andrea Malcolm
[2019-07-08 07:31] LABS: Phosphorus 6.1 mg/dL (2.5-4.5)
[2019-07-08 07:52] LABS: Hepatitis B Surface AB. 3.5 (0-8.5); Hepatitis B Surface Antigen. Non-Reactive (Nonreactive)
[2019-07-08] MEDS: ondansetron 2 mg/ML SDV 2 mL 4 MG IVP (11:00)
--- NOTE | 2019-07-08 11:16 | PC.NURSE ---
pt. off floor
--- NOTE | 2019-07-08 14:03 | PC.CHAP ---
Pastoral Care Encounter/Spiritual Assessment Type of Contact [] Declined record cutter visit [] Patient/Family/Request visit [] Outpatient visit [] Follow-up visit [] Physician referral [] Code/Alert [] Routine visit [] Staff referral [] Actively dying [] Patient sleeping [] Family support [] [X] Out of room [] Palliative care [] [] Receiving care in room [] Pre-surgical visit [] Trauma [] Long length of stay [] ICU visit [] Other: Relational/Emotional Strength [] Patient feels connected with others/family/visitors/staff [] Distress [] Loneliness/isolation [] Abandonment Spirituality of Patient [] Person of Fanny [] Attends Mormon of their Fanny [] Believes in Prayer [] Reads Bible or Oriental Orthodox materials [] There are Spiritual issues to be addressed Security Tech Interventions [] Prayer [] Active listening [] Non-anxious presence [] Spiritual/emotional support [] Crisis/trauma care [] Spiritual counseling [] Bereavement support [] Provided bereavement packet [] Provided Bible/devotional materials [] Provided toy/stuffed animal, coloring book to patient or family member [] Provided Communion [] Anointing/[place] [] Salvation [] Completed spiritual assessment [] Other: Impact on Illness or Injury [] Angry [] Fearful [] Anxious [] Often cries [] Exhaustion [] Unable to work [] Unable to attend mandaen [] Unable to walk/stand [] Unable to read [] Unable to drive [] Unable to eat/drink [] Unable to sleep [] Unable to be with family [] Patient intubated [] Other: Summary GONE TO DIALYSIS Time spent with patient
[2019-07-08] MEDS: hyDRALAzine 25 mg Tablet PO (15:32)
[2019-07-12 06:03] LABS: Ionized Calcium 0.7 mmol/L (1.1-1.4)
--- NOTE | 2019-07-14 01:44 | PM.DCS ---
Discharge Providers Date of Admission: 07/07/19 15:45 Date of Discharge: July 14, 2019 Attending Provider at Admission: Stormy Simeon MD Attending Provider at Discharge: Stormy Simeon MD Diagnoses at Discharge Discharge Diagnosis (1) Hypertension: Status: Acute (2) End stage renal disease: Status: Acute (3) Metastatic renal cell carcinoma: Status: Acute (4) Metabolic acidosis: Status: Acute Reason for Visit Reason for Visit: Reason For Visit: WEAK Hospital Course Discharge Summary: Shamika Hickman is a 63 year old female with metastatic renal cell ca with metastatic disease to brain, bones and likely lungs currently on chemo with cabometyx with side effects of diarrhea. She is on HD since at least 2 years. Presents today with c/o increasing generalized weakness, cramping in all extremities, fatigue because of which she could not make it to her scheduled dialysis session today. Over the past week she has noticed increased swelling in B/L lower extremities, became more tachypneic today and presented o the ER. She received HD upon admission and had significantly improved symptoms the next day and was discharged the next day in stable condition. Physical Exam Narrative: EXAM NARRATIVE: GEN: Awake, alert and oriented, no acute distress CVS: S1S2 N RS: CTA B/L Abd: Soft, nt/nd , bs+ SUCTION ROLLER: no focal neuro deficits Discharge Data Data Completed and Pending: Completed Studies During Hospitalization Category Date Time Status XR chest 1V alexy ble [id number] Stat Exams 07/07/19 14:25 Completed Pending at discharge Category Date Time Status Vitamin D 1,25 Di hydroxy Routine Lab 07/07/19 19:27 Received Vitals: Last Vital Signs Temp 99.1 F 07/08/19 16:51 Pulse 91 07/08/19 16:51 Resp 18 07/08/19 16:51 BP 174/91 07/08/19 16:51 Pulse Ox 92 07/08/19 16:51 Discharge Plan Discharge Patient Disposition: Home, Self-Care Condition: Stable Prescriptions: New calcium carbonate 200 mg calcium (500 mg) Tablet,Chewable 1,000 mg PO BID 30 Days Qty: 60 RF: 0 Vitamin D2 1,250 mcg (50,000 unit) Capsule 50,000 unit PO Q7D Qty: 5 RF: 0 calcitriol 0.25 mcg Capsule 0.25 mcg PO DAILY Qty: 30 RF: 0 Continued furosemide 40 mg Tablet 40 mg PO DAILY RF: 0 metolazone 5 mg Tablet 5 mg PO DAILY RF: 0 hydralazine 25 mg Tablet 25 mg PO TID RF: 0 simvastatin 40 mg Tablet 40 mg PO DAILY RF: 0 amlodipine 10 mg Tablet 10 mg PO DAILY RF: 0 Stool Softener 100 mg Capsule 100 mg PO DAILY PRN (Reason: Constipation) RF: 0 letrozole 2.5 mg Tablet 2.5 mg PO DAILY RF: 0 Prozac 20 mg Capsule 20 mg PO DAILY RF: 0 metoprolol tartrate 25 mg Tablet 25 mg PO BID RF: 0 Discharge Orders: Discharge Order (Routine); Ordered 07/08/19 Ordered By: Stormy Simeon Referrals: Mahad Livingston MD [Referring] - (Please contact Dr. Livingston office for a follow up appointment as needed. ) [facility], [Staff Physician] - (Please contact Dr. Del Castillo office Wednesday to schedule an appointment within the next 4 to 7 days. ) Discharge Diet: Usual diet Discharge Activity: Resume usual activity Patient Instructions: Calcitriol (By mouth), Calcium Supplement (By mouth), Vitamin D (By mouth), Chronic Kidney Disease (DC) Discharge Date/Time: 07/08/19 16:53 Discharge Attestations Time Spent in Discharge Care*: less than 30 min Quality Metrics Clinical Quality Measures During this hospital stay, did patient experience: None Coding Level of Care Code Acute Automobile Salesman for Andrea Malcolm Diagnoses Hypertension I10 End stage renal disease N18.6 Metastatic renal cell carcinoma C64.9 Metabolic acidosis E87.2
== END 2019-07-08 16:53 | disposition home or self-care (01) | DRG 640 ==
LOC: ER 15:45 → MEDSURG 16:14
PROVIDERS: Internal Medicine; Student in an Organized Health Care Education/Training Program; Admitting Provider Student in an Organized Health Care Education/Training Program; Emergency Provider Emergency Medicine; Visit Provider Student in an Organized Health Care Education/Training Program
DX: E87.6 Hypokalemia (principal); N18.6 End stage renal disease; I12.0 Hypertensive chronic kidney disease with stage 5 chronic kidney disease or end stage renal disease; C79.51 Secondary malignant neoplasm of bone; C79.31 Secondary malignant neoplasm of brain; C78.00 Secondary malignant neoplasm of unspecified lung; C64.9 Malignant neoplasm of unspecified kidney, except renal pelvis; E87.2 Acidosis; R53.1 Weakness; Z79.899 Other long term (current) drug therapy; Z99.2 Dependence on renal dialysis; Z91.15 Patient's noncompliance with renal dialysis; E83.51 Hypocalcemia; E03.9 Hypothyroidism, unspecified; E83.42 Hypomagnesemia; Z85.42 Personal history of malignant neoplasm of other parts of uterus; R19.7 Diarrhea, unspecified; Z86.73 Personal history of transient ischemic attack (TIA), and cerebral infarction without residual deficits
CPT/HCPCS: 12345; 36415; 36600; 71045; 80051; 80053; 82306; 82310; 82330; 82810; 83970; 83986; 84100; 84443; 85025; 86705; 86706; 87340; 90935; 93005; 96372; 96375; 97161; 99282; J0610; J1644; J2405; Q3014

== ENCOUNTER 2019-08-08 22:25 | Emergency (ER) | payer MEDICAID, SELFPAY ==
[2019-08-08 22:27] VITALS: BP 135/76; PULSE 83; RESP 18; TEMP 36.3; O2SAT 95; BMI 39.4
--- NOTE | 2019-08-08 22:28 | ED_ITS ---
HPI - Extremity Problem General: Chief complaint: Wound/Laceration Stated complaint: ARM BLEEDING Time Seen by Provider: 08/08/19 22:28 Source: patient Mode of arrival: ambulatory Limitations: no limitations History of Present Illness: HPI Narrative: 63-year-old female comes in for evaluation of left upper arm fistula. Patient had fistula placed today at [facility] by the surgeon Dr. Chapman, patient noticed shadowing and bleeding through the dressing that was applied. Patient also notes some increased swelling and tenderness to the area. Patient has a history of renal failure and metastatic disease. Review of Systems General: Reports: 10 or more systems reviewed and unremarkable except in HPI and below Musc: Reports: extremity pain and extremity swelling PFS ED PFSH: Social History Smoking and tobacco status: never smoked Current occupation: Disability Physical Exam Const: COMMON NORMALS: no apparent distress and oriented x3 GENERAL APPEARANCE: cooperative HENMT: COMMON NORMALS: normocephalic, TM's normal bilaterally and external nose normal HEAD & SCALP: normal to inspection and normocephalic NOSE: external nose normal TYMPANIC MEMBRANE: TM's normal bilaterally MOUTH: oral and palatal mucosa normal THROAT: posterior oropharynx normal Eye: GENERAL EYE: normal appearance of both eyes Neck/C-Spine: COMMON NORMALS: full ROM Lymph: LYMPHATIC: no lymphadenopathy noted Chest: COMMONS NORMALS: inspection of chest normal Resp: COMMON NORMALS: normal respiratory effort EFFORT & INSPECTION: Yes able to speak in complete sentences Cardio: COMMON NORMALS: regular rate and regular rhythm RATE: regular rate RHYTHM: regular rhythm GI: COMMON NORMALS: non-tender : COMMON NORMALS: Yes no CVA tenderness BLADDER/KIDNEY EXAM: Yes no CVA tenderness Back/Pelvis: COMMON NORMALS: no CVA tenderness and thoracic and lumbar spine normal to inspection Extremity: NARRATIVE EXTREMITY EXAM: Incision is well intact to the left inner upper arm. Large amount of ecchymosis is noted to the upper arm with significant swelling. Distal pulses are intact. A thrill is noted on palpation of the antecubital space suggesting functioning fistula. Dr. Mejia was requested to evaluate, he recommended ultrasound for further evaluation of hematoma versus bleeding fistula. Neuro: COMMON NORMALS: oriented x3 and moves all extremities Psych: COMMON NORMALS: mental status grossly normal and cooperative Skin: COMMON NORMALS: no rashes or lesions noted GENERAL SKIN EXAM: no rashes or lesions noted Course Vital Signs: Vital signs: Vital Signs Temperature 97.3 F L 08/08/19 22:27 Pulse Rate 83 08/08/19 22:27 Respiratory Rate 18 08/08/19 22:27 Blood Pressure 135/76 08/08/19 22:27 Pulse Oximetry 95 08/08/19 22:27 MDM - Extremity (Nontraumatic) MDM Narrative: Medical decision making narrative: Patient came in for evaluation of surgical arm where she had a fistula placed today. Patient had some bleeding from the wound and was concerned. Exam noted minimal shadowing to the. Significant swelling was noted in the upper arm. Distal pulses were intact. Auscultation and palpation of the fistula noted a good thrill. Ultrasound was performed and noted no leakage or bleeding at the anastomosis. Differential diagnosis included but not limited to postsurgical bleeding, hematoma, lymphedema. Reviewed exam with patient recommended continued treatment and follow-up as needed. Patient reported understanding agreed to plan. Discharge Plan Discharge Patient Disposition: Home, Self-Care Clinical Impression: Arm swelling, End stage renal disease Condition: Stable Prescriptions: No Action furosemide 40 mg Tablet 40 mg PO DAILY RF: 0 metolazone 5 mg Tablet 5 mg PO DAILY RF: 0 hydralazine 25 mg Tablet 25 mg PO TID RF: 0 simvastatin 40 mg Tablet 40 mg PO DAILY RF: 0 amlodipine 10 mg Tablet 10 mg PO DAILY RF: 0 Stool Softener 100 mg Capsule 100 mg PO DAILY PRN (Reason: Constipation) RF: 0 letrozole 2.5 mg Tablet 2.5 mg PO DAILY RF: 0 Prozac 20 mg Capsule 20 mg PO DAILY RF: 0 metoprolol tartrate 25 mg Tablet 25 mg PO BID RF: 0 Vitamin D2 1,250 mcg (50,000 unit) Capsule 50,000 unit PO Q7D Qty: 5 RF: 0 calcitriol 0.25 mcg Capsule 0.25 mcg PO DAILY Qty: 30 RF: 0 Discharge Orders: Discharge Order (Routine); Ordered 08/09/19 Ordered By: Tyshawn Gibbons Referrals: Ariel Del Castillo MD [Primary Care Provider] - Discharge Diet: Usual diet Discharge Activity: Limit activity as instructed Activity Restrictions/Additional Instructions: change dressing as needed continue with routine care as directed Follow-up with surgeon as needed Return to ER for worsening symptoms or fever Coding Level of Care Code ED Manager Housekeeping for Chg Fwd Exam Comprehensive
--- NOTE | 2019-08-08 22:42 | USCV_ITS ---
Shamika Hikcman Age: 63 Gender: F : 1955 Exam Date: 08/08/2019 23:40 Ordering Phys: Tyshawn Gibbons Technologist: Asa Monsalve Exam Location: [facility] Indication: POST LT FISTULA FOR DIALASIS Findings NORMAL PRE FLOW NORMAL ANAST FLOW AND NORMAL POST VEIN FLOW. GOOD BLOOD FLOW TO THE HAND Normal flow pattern Conclusions Patent anastomosis with normal flow pattern Dr Tita Coburn MD FAC (Electronically Signed) Final Date: 09 August 2019 20:32 S
[2019-08-09] MEDS: HYDROcodone-acetaminophen 5-325 mg Tablet 1 TAB PO (00:32)
[2019-08-09 00:34] VITALS: BP 128/78; PULSE 83; RESP 18; O2SAT 95
== END 2019-08-09 00:34 | disposition home or self-care (01) ==
PROVIDERS: Emergency Provider Nurse Practitioner Family; PCP Family Medicine
DX: M79.89 Other specified soft tissue disorders (principal); N18.6 End stage renal disease
CPT/HCPCS: 12345; 93931; 99281; 99283

== ENCOUNTER 2019-08-10 15:00 | Outpatient (CLI) | payer MEDICAID, SELFPAY ==
[2019-08-10 20:33] LABS: Basophils % 0.3 %; Eosinophils # 0.2 10^3/uL (0.0-0.8); Eosinophils % 3.2 %; Hematocrit 31.2 % (37.0-47.0); Hemoglobin 9.8 g/dL (11.5-15.3); Lymphocytes # 0.7 10^3/uL (0.8-4.8); Lymphocytes % 10.5 %; Mean Corpuscular HGB Conc 31.4 g/dL (30.0-36.0); Mean Corpuscular Hemoglobin 31.5 pg (28.0-34.0); Mean Corpuscular Volume 100.3 fL (81-99); Mean Platelet Volume 11.7 fL (7.4-10.4); Monocytes # 0.7 10^3/uL (0.2-0.9); Monocytes % 10.6 %; Neutrophils # 4.7 10^3/uL (1.8-7.7); Neutrophils % 74.9 %; Nucleated Red Blood Cells % 0 %; Platelet Count 109 10^3/cmm (130-400); Red Blood Count 3.11 10^6/uL (4.1-5.3); Red Cell Distribution Width 15.6 % (12.1-15.1); White Blood Count 6.3 10^3/uL (4.0-10.0)
[2019-08-10 20:49] LABS: Alanine Aminotransferase 6 U/L (0-33); Albumin Level 3.2 g/dL (3.5-5.2); Alkaline Phosphatase 74 IU/L (35-105); Anion Gap 21.3 (5-19); Aspartate Amino Transferase 20 U/L (0-32); Blood Urea Nitrogen 22 mg/dL (8-23); Calcium 7.2 mg/dL (8.5-10.5); Carbon Dioxide 25 mmol/L (22-29); Chloride 98 mmol/L (98-107); Globulin 1.7 g/dL (1.3-4.6); Glomerular Filtration Rate 8.6 mL/min (90-130); Glucose 104 mg/dL (65-115); Osmolality Calculated 287 mOsm/kg (285-295); Potassium 4.3 mmol/L (3.5-5.1); Sodium 140 mmol/L (136-145); Total Bilirubin 0.4 mg/dL (0.15-1.2); Total Protein 4.9 g/dL (6.6-8.7)
== END 2019-08-10 15:01 | disposition home or self-care (01) ==
LOC: ONCMED 08-11 07:43
PROVIDERS: PCP Family Medicine; Visit Provider Internal Medicine Hematology & Oncology
DX: C54.1 Malignant neoplasm of endometrium (principal); C64.9 Malignant neoplasm of unspecified kidney, except renal pelvis; C79.51 Secondary malignant neoplasm of bone; N28.89 Other specified disorders of kidney and ureter
CPT/HCPCS: 80053; 85025

== ENCOUNTER 2019-08-10 17:46 | Emergency (ER) | payer MEDICAID, SELFPAY ==
--- NOTE | 2019-08-10 17:50 | XR_ITS ---
WS: [id number] PORTABLE CHEST HISTORY: dyspnea/cough COMPARISON: 07/07/2019 RIGHT jugular dialysis catheter with tips overlying the heart. Development of mild pulmonary congestion and edema. Slightly greater throughout the LEFT lung. No ple ural effusion or pneumothorax. Cardiac size: Mildly enlarged cardiac silhouette. Mediastinum/Aorta: Mild atherosclerosis aorta. No osseous abnormality seen. XR/XR chest 1V portable [id number] IMPRESSION: 1. Interval development of mild pulmonary congestion. 2. Mild cardiomegaly.
[2019-08-10 17:52] VITALS: BP 178/100; PULSE 100; RESP 20; TEMP 36.2; O2SAT 92; BMI 31.1
[2019-08-10 18:18] VITALS: O2SAT 97
--- NOTE | 2019-08-10 18:31 | W.ED.EXTPRO ---
HPI - Extremity Problem General: Chief complaint: Extremity Problem,Nontraumatic Stated complaint: FISTULA BLEEDING Time Seen by Provider: 08/10/19 17:47 Source: patient and EMS Mode of arrival: EMS Limitations: no limitations History of Present Illness: HPI Narrative: 63-year-old female who states she had an AV fistula done earlier this week at [facility]. She states she had swelling to her arm and started having increased pain along with fever at home. She has had some yellow discharge from her arm. She rates her pain a 8 out of 10. Associated symptoms: Deny chest pain, fever(s) or rash Review of Systems Const: Denies: fever, chills, body aches or change in appetite Eyes: Denies: blurry vision or eye discomfort ENMT: Denies: throat pain or dental pain Card: Denies: chest pain Resp: Denies: shortness of breath GI: Denies: abdominal pain, nausea, vomiting or diarrhea : Denies: painful urination Musc: Denies: neck pain or back pain Skin/Breast: Denies: rash Neuro: Denies: headache Psych: Denies: depression Yang/Lymph: Denies: easy bruising All/Imm: Denies: hives PFSH ED PFSH: Social History Smoking and tobacco status: never smoked Current occupation: Disability Physical Exam Const: COMMON NORMALS: no apparent distress, oriented x3 and healthy appearing HENMT: COMMON NORMALS: normocephalic and head/scalp atraumatic HEAD & SCALP: normocephalic and atraumatic Eye: COMMON NORMALS: PERRL and EOMs intact bilaterally PUPIL: Yes PERRL Neck/C-Spine: COMMON NORMALS: full ROM and supple Chest: COMMONS NORMALS: inspection of chest normal and palpation of chest normal Resp: COMMON NORMALS: normal respiratory effort, no retractions, no use of accessory muscles and clear to auscultation bilaterally AUSCULTATION: clear to auscultation bilaterally Cardio: COMMON NORMALS: regular rate, regular rhythm and no murmurs RATE: regular rate RHYTHM: regular rhythm GI: COMMON NORMALS: normal to inspection, nondistended, normoactive bowel sounds, soft to palpation, non-tender and no masses PALPATION: Yes soft Extremity: COMMON NORMALS: full ROM NARRATIVE EXTREMITY EXAM: Large amount of swelling over incision of her AV fistula with purulent drainage with foul smell Neuro: COMMON NORMALS: oriented x3, moves all extremities and no focal motor deficits Psych: COMMON NORMALS: mental status grossly normal, thought process normal and cooperative THOUGHT PROCESS: normal thought process Skin: COMMON NORMALS: no rashes or lesions noted and no wounds GENERAL SKIN EXAM: no rashes or lesions noted Course Vital Signs: Vital signs: Vital Signs Temperature 97.2 F L 08/10/19 17:52 Pulse Rate 96 08/10/19 19:14 Respiratory Rate 20 H 08/10/19 17:52 Blood Pressure 154/93 08/10/19 19:14 Pulse Oximetry 91 08/10/19 19:14 MDM - Extremity (Nontraumatic) MDM Narrative: Medical decision making narrative: Patient presents here with cellulitis and likely abscess of left arm. Patient recently had AV fistula earlier this week for likely surgical site infection. Will start patient on antibiotics I spoke to physician at [facility] and will transfer there for higher level of care as we do not have CV surgeon and her original surgery was done there as well. Patient has been stable while here. Lab Data: Labs: Lab Results 08/10/19 08/10/19 Range/Units 18:27 18:27 WBC 6.4 (4.0-10.0) 10^3/ uL RBC 2.39 L (4.1-5.3) 10^6/u L Hgb 7.4 L (11.5-15.3) g/dL Hct 24.5 L (37.0-47.0) % MCV 102.5 H (81-99) fL MCH 31.0 (28.0-34.0) pg MCHC 30.2 (30.0-36.0) g/dL RDW 15.6 H (12.1-15.1) % Plt Count 117 L (130-400) 10^3/c mm MPV 11.3 H (7.4-10.4) fL Neut % (Auto) 74.0 % Lymph % (Auto) 11.3 % [place] % (Auto) 10.6 % Eos % (Auto) 3.0 % Baso % (Auto) 0.6 % Neut # (Auto) 4.8 (1.8-7.7) 10^3/u L Lymph # (Auto) 0.7 L (0.8-4.8) 10^3/u L [place] # (Auto) 0.7 (0.2-0.9) 10^3/u L Eos # (Auto) 0.2 (0.0-0.8) 10^3/u L Baso # (Auto) 0.0 (0.0-0.1) 10^3/u L Nucleated RBC % (a uto) 0 % Nucleated RBCs # 0.0 /100WBC Sodium 136 (136-145) mmol/L Potassium 3.8 (3.5-5.1) mmol/L Chloride 99 (98-107) mmol/L Carbon Dioxide 26 (22-29) mmol/L Anion Gap 14.8 (5-19) BUN 25 H (8-23) mg/dL Creatinine 5.5 H (0.5-0.9) mg/dL GFR Calculation 7.9 L (90-130) mL/min Glucose 117 H (65-115) mg/dL Calculated Osmolal ity 280 L (285-295) mOsm/k g Calcium 7.1 L (8.5-10.5) mg/dL Total Bilirubin 0.4 (0.15-1.2) mg/dL AST 17 (0-32) U/L ALT < 5 (0-33) U/L Alkaline Phosphata se 70 (35-105) IU/L Total Protein 5.2 L (6.6-8.7) g/dL Albumin 3.0 L (3.5-5.2) g/dL Globulin 2.2 (1.3-4.6) g/dL Discharge Plan Discharge Patient Disposition: Xfer Other Clinical Impression: Post op infection Cellulitis Qualifiers: Site of cellulitis: extremity Site of cellulitis of extremity: upper extremity Laterality: left Qualified Code(s): L03.114 - Cellulitis of left upper limb Condition: Stable Referrals: Ariel Del Castillo MD [Primary Care Provider] - Coding Level of Care Code ED Chiropractic Assistant for [facility] Fwd Exam Comprehensive
[2019-08-10 18:49] LABS: Basophils % 0.6 %; Eosinophils # 0.2 10^3/uL (0.0-0.8); Hematocrit 24.5 % (37.0-47.0); Hemoglobin 7.4 g/dL (11.5-15.3); Lymphocytes # 0.7 10^3/uL (0.8-4.8); Lymphocytes % 11.3 %; Mean Corpuscular HGB Conc 30.2 g/dL (30.0-36.0); Mean Corpuscular Volume 102.5 fL (81-99); Mean Platelet Volume 11.3 fL (7.4-10.4); Monocytes # 0.7 10^3/uL (0.2-0.9); Monocytes % 10.6 %; Neutrophils # 4.8 10^3/uL (1.8-7.7); Nucleated Red Blood Cells % 0 %; Platelet Count 117 10^3/cmm (130-400); Red Blood Count 2.39 10^6/uL (4.1-5.3); Red Cell Distribution Width 15.6 % (12.1-15.1); White Blood Count 6.4 10^3/uL (4.0-10.0)
[2019-08-10 19:08] LABS: Alanine Aminotransferase < 5 U/L (0-33); Alkaline Phosphatase 70 IU/L (35-105); Anion Gap 14.8 (5-19); Aspartate Amino Transferase 17 U/L (0-32); Blood Urea Nitrogen 25 mg/dL (8-23); Calcium 7.1 mg/dL (8.5-10.5); Carbon Dioxide 26 mmol/L (22-29); Chloride 99 mmol/L (98-107); Globulin 2.2 g/dL (1.3-4.6); Glomerular Filtration Rate 7.9 mL/min (90-130); Glucose 117 mg/dL (65-115); Osmolality Calculated 280 mOsm/kg (285-295); Potassium 3.8 mmol/L (3.5-5.1); Sodium 136 mmol/L (136-145); Total Bilirubin 0.4 mg/dL (0.15-1.2); Total Protein 5.2 g/dL (6.6-8.7)
[2019-08-10 19:14] VITALS: BP 154/93; PULSE 96; O2SAT 91
[2019-08-10] MEDS: vancomycin 1,000 MG in sodium chloride 0.9% 250 ML 250 MG IV (19:14)
[2019-08-10] MEDS: ondansetron 2 mg/ML SDV 2 mL 4 MG IVP (19:14)
[2019-08-10] MEDS: sodium chloride 0.9% 1,000 ML 999 ML IV (19:14)
--- NOTE | 2019-08-10 20:47 | PC.NURSE ---
Lab called nurse to inform they where reordering the lactic acid draw because of a barcode error.
[2019-08-10 20:49] VITALS: BP 144/98; PULSE 98; RESP 16; O2SAT 94
[2019-08-10 21:09] VITALS: BP 145/88; PULSE 96; RESP 16; TEMP 36.5; O2SAT 94
[2019-08-10 22:24] VITALS: BP 169/107; PULSE 96; RESP 18; O2SAT 94
== END 2019-08-10 22:25 | disposition other institution (70) ==
PROVIDERS: Family Medicine; Emergency Provider Emergency Medicine; PCP Family Medicine
DX: L03.114 Cellulitis of left upper limb (principal)
CPT/HCPCS: 12345; 36415; 71045; 80053; 83605; 85025; 87040; 96365; 96375; 99283; 99285; J2405; J3370; J7030; J7050

== ENCOUNTER 2019-08-22 11:15 | Outpatient (CLI) | payer MEDICAID, SELFPAY ==
[2019-08-22 15:45] LABS: Basophils % 0.6 %; Eosinophils # 0.2 10^3/uL (0.0-0.8); Eosinophils % 2.8 %; Hemoglobin 8.6 g/dL (11.5-15.3); Lymphocytes # 0.6 10^3/uL (0.8-4.8); Lymphocytes % 11.3 %; Mean Corpuscular HGB Conc 26.9 g/dL (30.0-36.0); Mean Corpuscular Hemoglobin 31.5 pg (28.0-34.0); Mean Corpuscular Volume 117.2 fL (81-99); Mean Platelet Volume 10.8 fL (7.4-10.4); Monocytes # 0.5 10^3/uL (0.2-0.9); Neutrophils # 4.1 10^3/uL (1.8-7.7); Neutrophils % 74.9 %; Nucleated Red Blood Cells % 0 %; Platelet Count 182 10^3/cmm (130-400); Red Blood Count 2.73 10^6/uL (4.1-5.3); Red Cell Distribution Width 17.2 % (12.1-15.1); White Blood Count 5.4 10^3/uL (4.0-10.0)
[2019-08-22 16:23] LABS: Alanine Aminotransferase < 5 U/L (0-33); Albumin Level 3.4 g/dL (3.5-5.2); Alkaline Phosphatase 91 IU/L (35-105); Anion Gap 28.3 (5-19); Aspartate Amino Transferase 25 U/L (0-32); Blood Urea Nitrogen 38 mg/dL (8-23); Calcium 7.8 mg/dL (8.5-10.5); Carbon Dioxide 19 mmol/L (22-29); Chloride 101 mmol/L (98-107); Globulin 2.7 g/dL (1.3-4.6); Glomerular Filtration Rate 7.7 mL/min (90-130); Glucose 88 mg/dL (65-115); Osmolality Calculated 293 mOsm/kg (285-295); Potassium 5.3 mmol/L (3.5-5.1); Sodium 143 mmol/L (136-145); Total Bilirubin 0.4 mg/dL (0.15-1.2); Total Protein 6.1 g/dL (6.6-8.7)
== END 2019-08-22 11:16 | disposition home or self-care (01) ==
LOC: ONCMED 08-23 08:11
PROVIDERS: PCP Family Medicine; Visit Provider Internal Medicine Hematology & Oncology
DX: C54.1 Malignant neoplasm of endometrium (principal); C64.9 Malignant neoplasm of unspecified kidney, except renal pelvis; C79.51 Secondary malignant neoplasm of bone; N28.89 Other specified disorders of kidney and ureter
CPT/HCPCS: 80053; 85025

== ENCOUNTER 2019-08-29 11:09 | Outpatient (CLI) | payer MEDICAID, SELFPAY ==
--- NOTE | 2019-08-29 14:11 | ONC FU_ITS ---
Dr. Brady follow up note Patient: Shamika Hickman Unit #: [id number]: 1955 Dicatated By: Nathan Brady M.D.Date of Visit:August 29, 2019 Onc Med Follow-up/Prog Note History of Present Illness: Mrs. 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 And then patient had some social issues she moved from [place] to [place] close to her family and recently she was evaluated by CARDIOVASCULAR TECHNICIAN and urologist for combined cytoreductive nephrectomy and hysterectomy. In January this year she underwent left lateral lymph node biopsy and cytology was negative in late January 2018 she sustained a pathological fracture of left humerus which he was initially treated with splinting and eventually seen by Dr. Ivan and on 03/15/2018 she underwent left humerus ORIF, curettage and cementation. The pathology confirmed metastatic clear cell carcinoma and she also underwent T9 core biopsy which was also consistent with clear cell carcinoma and she has not undergone any further workup for ovarian mass. Given her evidence of metastatic involvement cytoreductive nephrectomy and hysterectomy was put on hold. Patient was referred to [facility] in [place] , on 03/22/[address] Sebastian Spencer who recommended and started her on cabozantinib 20 mg by mouth daily, and also recommended noncontrasted CT scan of chest abdomen pelvis and bone scan but patient did not go for that because of transportation issues. And CT scan of chest abdomen pelvis done on 05/12/2018 showed bilateral upper and midlung zone innumerable less than 5 mm pulmonary nodules e.g. metastatic disease versus atypical pneumonia. cabometyx was increased to 40 milligrams daily tolerated well with normal blood counts and her dose was increased to 60 mg by mouth daily on 07/28/2018 Mild cardiomegaly Left kidney superior pole 5.3 x 6.5% 0.5 cm mass No significant change in right radial mixed solid and cystic mass with calcifications Mild bilateral inguinal lymphadenopathy. Bone scan done on 05/12/2018 showed right sixth rib, distal sternum and left humerus metastatic disease status post left humerus fracture with internal fixation Chronic renal failure on hemodialysis MRI of the head without contrast from 07/14/2017 reported T2 hyperintense soft tissue nodule involving the right parietal occipital calvarium. This involves the inner outer tables with extension into the scalp. This lesion measures approximately 1.5 x 1.6 x 1.8 cm suspicious for metastatic disease. No other visualized calvarial lesions. Mild small vessel changes with moderate parenchymal volume loss. Partial opacification mastoid air cells bilaterally. Single punctuate focus of hemosiderin in the left frontal white matter. No other significant findings. Referred to radiology for CT-guided biopsy of scalp mass Which confirmed clear cell carcinoma Underwent excision of this mass on 09/22/2018 final pathology report showed metastatic clear cell carcinoma .Follow-up CT scan of chest abdomen pelvis done on 12/22/2018 showed resolved previously widespread nodularity of lung parenchyma since 05/12/2018 Stable parenchymal scarring left upper and lower lobes Improvement in the previous bilateral axillary lymphadenopathy Lytic bony metastatic disease with mixed therapeutic response. Decrease in bulk of previous upper pole left renal mass Progressive lytic metastatic disease of L2 vertebra and new lytic lesion of right L4 transverse process. Marginal increase in size of right ovarian mass Improvement in previous mild bilateral inguinal lymphadenopathy CT scan of head done on 12/30/2018 showed no evidence of intracranial hemorrhage or mass effect right partial craniotomy with mesh cranioplasty. Patient was referred to CARDIOVASCULAR TECHNICIAN oncology in [place] where she saw Dr. Otoole on 01/25/2019 and as per her evaluation she is recommended Femara 2.5 mg by mouth daily for her newly diagnosed endometrial cancer and also wants to review and discuss regarding timing of surgery. Patient had episode of TIA on 03/05/2019 for which she was admitted to hospital and CT scan of head was done on 03/05/2019 which showed no evidence of brain metastases or any acute changes. Patient presented with difficulty in speech and confusion but during hospital stay she improved no TPA was considered because of history of renal cell carcinoma with brain metastases She continues with the cabometyx for the renal cancer and Femara for the endometrial cancer.And on monthly Xgeva. Episode of diarrhea which improved with holding off cabometyx but patient said she started taking 40 mg daily for 2 days then gone up to schedule dose 60 mg daily 3 days ago now tolerating well with mild diarrhea, which is improving. Came for follow-up, denies any specific complaints except some discomfort in left arm where she had AV fistula placed in and now being followed by surgery. Also complaining of off and on dizziness and blurred vision but no focal weakness, no headaches, no nausea or vomiting, no fever or chills, no hemoptysis or hematemesis. Patient said she is tolerating hemodialysis well and also getting some sort of bone treatment there. Otherwise tolerating cabometyx and Femara well Medications: AmLODIPine Besylate 1 (10 mg) Tablet Oral daily, Calcium Acetate (Phos Binder) 2 Capsule (of 667 mg) Tablet Oral t.i.d., carbometyx 60 mg (of 20 mg) Tablet Oral daily, D-1000 1 Tablet (of 1000 Units) Oral daily, Furosemide 1 Tablet (of 40 mg) Oral daily, HumaLOG Subcutaneous, HydrALAZINE HCl 1 (25 mg) Tablet Oral four times a day, MetOLazone 1 Tablet (of 5 mg) Oral b.i.d., Metoprolol Tartrate 1 (25 mg) Tablet Oral b.i.d., PROzac 1 Capsule (of 20 mg) Oral daily, Senna-Plus 2 (8.6-50 mg) Tablet Oral b.i.d., Simvastatin 1 (40 mg) Tablet Oral at bedtime, Sodium Bicarbonate 1 Tablet (of 650 mg) Oral daily Allergies: No Known Allergies. Review of Systems: Constitutional - She is generally feeling okay. Her energy level is up and down but she is able to do some light housework. She does require in home health services. Her appetite is good. No fevers, or chills. No night sweats or weight loss, ENMT - No problems with hearing, no sore throat, no sinus drainage, Hematologic/Lymphatic - She bruises easily. The patient denies any tender or palpable lymph nodes, Respiratory - She gets dyspnea on exertion. No cough or hemoptysis, Cardiovascular - No anginal chest pain, palpitations or orthopnea, Gastrointestinal - No nausea, vomiting. She has chronic diarrhea. No GI bleeding, or constipation. No change in bowel habits, no heartburn or early satiety, Genitourinary (F) - No hematuria or dysuria. She has increased frequency with urgency. She has some hesitancy. No incontinence, Musculoskeletal - She has some intermittent left leg pain/knee related to a recent fall, Integumentary - No chronic rashes, inflammation, ulcerations or skin changes. She has a abrasion to her left knee, covered with dressing, Neurologic - No headache. She has been feeling light headed. No blurred vision. She has some numbness in her ankles and feet, Psychiatric - She is not sleeping well. She has some mild anxiety. No depression, casi or mood swings. Vital Signs: Performed on August 29, 2019 11:32 Height - 62.00 in Weight - 173.2 lbs (HIGH) BSA - 1.80 sq.m BMI - 31.68 (HIGH) Temperature - 98.2 F (LOW) Pulse - 97 /min Respiration - 18 /min BP - 160/75 mm(hg) (HIGH) O2 Sat - 97 % Pain - 0 Performance Status: Perf. Status is not available for this patient. Physical Examination: ENMT - no mouth sores, Respiratory - Lungs are clear, Cardiovascular - Regular rate and rhythm of heart, Abdomen - soft, bowel sounds are present, Extremities - 1+ edema bilaterally and fullness in her left arm which is covered with bandage due to recent AV fistula placement, no focal weakness. Lab/Imaging: Test performed on Aug 22, 2019 11:15 Sodium 143 mmol/L Potassium 5.3 mmol/L Chloride 101 mmol/L CO2 19 mmol/L Anion Gap 28.3 BUN 38 mg/dL Creatinine 5.6 mg/dL Cr Clearance (Est) 12.6000 mL/min eGFR 7.7 mL/min Glucose 88 mg/dL Calcium 7.8 mg/dL Protein, Total 6.1 g/dL Albumin 3.4 g/dL Globulin 2.7 g/dL Bilirubin, Total 0.4 mg/dL ALT (SGPT) < 5 U/L AST (SGOT) 25 U/L Alkaline Phosphatase 91 IU/L WBC 5.4 10 3/uL RBC 2.73 10 6/uL HGB 8.6 g/dL HCT 32.0 % MCV 117.2 fL MCH 31.5 pg MCHC 26.9 g/dL RDW 17.2 % Platelet Count 182 10 3/cmm MPV 10.8 fL Neutrophils 4.1 10 3/uL Lymphocytes 0.6 10 3/uL Monocytes 0.5 10 3/uL Eosinophils 0.2 10 3/uL Basophils 0.0 10 3/uL Neutrophil % 74.9 % Lymphocyte % 11.3 % Monocyte % 10.0 % Eosinophil % 2.8 % Basophils % 0.6 % Test performed on May 04, 2019 09:20 Manual Lymphocytes 17.6 % Manual Monocytes 11.8 % Manual Eosinophils 3.9 % Manual Basophils 0.7 % NRBCs 0.0 /100 WBC Impression: Metastatic renal cell carcinoma with left humerus involvement status post left humeral fracture status post ORIF in February 2018 and T9, confirmed with biopsy On cabometyx 40 mg by mouth daily Grade 1 endometrial carcinoma further treatment e.g. hysterectomy is on hold because of recently diagnosed metastatic renal cell carcinoma. Now on Femara 2.5 mg daily Ovarian mass of unknown etiology, oophorectomy is on hold because of above-mentioned issue. History of pulmonary hypertension History of chronic renal disease .On hemodialysis now CT scan of chest abdomen pelvis done on 05/12/2018 showed bilateral upper and mid lung zone innumerable less than 5 mm pulmonary nodules metastatic disease versus atypical pneumonia Multiple osseous metastatic disease potential involvement of T9 Bilateral axillary lymphadenopathy may be reactive due to edema or metastatic disease cannot be excluded. Left kidney is. Pole 5.3 x 6.5 x 7.5 No significant change in right ovarian mixed solid and cystic mass with calcification malignant ovarian neoplasm within the differential .Bone scan done on 05/12/2018 showed increase uptake in right lateral sixth rib, distal sternum, left humerus and status post fixation pathological fracture left humerus, increasing uptake throughout the largest portion of left humerus MRI of the head without contrast from 07/14/2017 reported T2 hyperintense soft tissue nodule involving the right parietal occipital calvarium. This involves the inner outer tables with extension into the scalp. This lesion measures approximately 1.5 x 1.6 x 1.8 cm suspicious for metastatic disease. No other visualized calvarial lesions. Mild small vessel changes with moderate parenchymal volume loss. Partial opacification mastoid air cells bilaterally. Single punctuate focus of hemosiderin in the left frontal white matter. No other significant findings. Underwent excisional biopsy on 09/22/2018 showed metastatic clear cell carcinoma. Plan: Discussed with patient regarding her labs white blood count 5.7 hemoglobin 8.6 hematocrit 32 platelets 182,000 CMP within normal limit except creatinine 5.6, potassium 5.3 Clinically, patient is doing reasonably well, tolerating cabometyx for metastatic renal cell carcinoma and Femara for endometrial carcinoma well but with expected side effects. and will continue with cabometyx and Femara and At this point we will consider follow-up CT scan of chest abdomen pelvis and also consider CT scan of head for off and on lightheaded and dizziness to rule out brain metastases. Generalized weakness and fatigue, could be multifactorial including persistent moderate anemia which is multifactorial including renal failure and could be due to cabometyx and underlying myelodysplasia cannot be ruled out. Or anemia of chronic disease. Consider blood transfusion if hemoglobin drops below 8 g. Patient is receiving renal dose of erythropoietin at nephrology clinic. She will return to clinic in 2 weeks. Patient was advised in case there is a worsening of headaches or focal weakness or seizure-like activity she needed to go to hospital immediately otherwise return to clinic as scheduled. Signed By: Nathan Brady M.D. <<Signature on File>>
== END 2019-08-29 11:10 | disposition home or self-care (01) ==
LOC: ONCMED 11:12
PROVIDERS: PCP Family Medicine; Visit Provider Internal Medicine Hematology & Oncology
DX: C54.1 Malignant neoplasm of endometrium (principal); C64.9 Malignant neoplasm of unspecified kidney, except renal pelvis; C79.51 Secondary malignant neoplasm of bone; C79.2 Secondary malignant neoplasm of skin; R42 Dizziness and giddiness; R53.1 Weakness; R53.83 Other fatigue; N18.6 End stage renal disease; D63.1 Anemia in chronic kidney disease; Z99.2 Dependence on renal dialysis; N83.9 Noninflammatory disorder of ovary, fallopian tube and broad ligament, unspecified; R59.0 Localized enlarged lymph nodes; Z79.811 Long term (current) use of aromatase inhibitors; Z79.899 Other long term (current) drug therapy
CPT/HCPCS: 99214

== ENCOUNTER 2019-09-01 07:41 | Outpatient (CLI) | payer MEDICAID, SELFPAY ==
--- NOTE | 2019-09-01 07:49 | NM_ITS ---
WS: [id number] NM bone scan whole body* [id number] REASON FOR EXAM: MALIGNANT NEOPLASM TECHNICAL: 24.6 mCi technetium 99m HDP T FINDINGS: Abnormal activity is noted in the left mid humerus from a previous fracture Both knees and ankle show degenerate of activity. Both kidneys show normal function. In the upper one third of the rib cage on the right side there is increased activity which may repres ent metastatic changes. There is also increased activity along the articulation of the fifth rib post eriorly suggesting metastatic changes. The skull did not show abnormal activity in the lateral projection particularly on the right side the re is activity noted along the calvarium this area of previous craniotomy.. NM/NM bone scan whole body* [id number] IMPRESSION: Activity is identified in the upper one third of the rib cage on the right as w ell as along the posterior articular surface of the fifth rib on the right sugg esting metastatic findings. Abnormal activity is seen in the left humerus in the area of previous fracture and the calvarium.
== END 2019-09-01 07:42 | disposition home or self-care (01) ==
LOC: RAD 07:43
PROVIDERS: PCP Family Medicine; Visit Provider Internal Medicine Hematology & Oncology
DX: C80.1 Malignant (primary) neoplasm, unspecified (principal)
CPT/HCPCS: 78306; A9561

== ENCOUNTER 2019-09-05 12:22 | Outpatient (CLI) | payer MEDICAID, SELFPAY ==
--- NOTE | 2019-09-05 12:29 | CT_ITS ---
WS: [id number] CT CHEST, ABDOMEN AND PELVIS WITH CONTRAST. HISTORY: MALIGNANT NEOPLASM OF ENDOMETRIUM TECHNIQUE: Contiguous 5 mm axial imaging performed through the chest, abdomen and pelvis with IV cont rast, oral contrast has been provided. Coronal and sagittal reformats chest. Coronal and sagittal ref ormats through the abdomen and pelvis. All CT scans at [facility] use at least one of the se dose optimization techniques: automated exposure control; mA and/or kV adjustment per patient size (includes targeted exams where dose is matched to clinical indication); or iterative reconstruction. CONTRAST: Visipaque 320; 95 mL IV. DLP: 1613.94 mGy.cm COMPARISON: 12/22/2018, 05/12/2018 and 04/20/2019. Chest CT: Large bore dialysis catheter with tips overlying the RIGHT heart. Central lung opacificatio ns with sparing of the periphery. Central opacifications involve all lobes. There is a focal consolid ation groundglass attenuation in the lingula measuring 7 mm. Very small bilateral pleural effusions, LEFT greater than RIGHT Small axillary lymph nodes, less than a centimeter. Anterior mediastinal lymph node node measures 8 mm and is ovoid. Bilateral hilar lymph nodes measure up to 8 mm in short axis diameter. Lymph nodes within the thorax have all increased very slightly in size and number. There is diffuse interstitial edema within the soft tissues of the chest. This is ne w since the prior study. Moderate enlargement the heart. Expansile mixed lytic destructive lesion involving the RIGHT lateral sixth rib. Very similar in appea [place] to the prior CT of 12/22/2018 and may be post therapeutic changes. There is an additional lytic destructive bone lesion involving the posterior elements of T9 on the RIGHT and the adjacent rib. The se findings were also present on the prior CT without progression. Additional lytic lesion involving T4 RIGHT pedicle and lamina and transverse process. Mild expansion of the posterior medial RIGHT fift h rib. All of these bone lesions have been previously described without significant progression. Abdomen CT: Mild intrahepatic duct dilatation similar to the prior studies. No metastatic lesion in t he liver. There is a small amount of perihepatic fluid. Gallbladder is normally distended. Spleen is negative. Negative pancreas. Subcentimeter nodules associated with the LEFT adrenal gland is stable. Perinephric stranding around each kidney. There is some very mild thickening and mixed density in the upper pole of the LEFT kidney which is similar to prior studies. This corresponds to the renal cell neoplasm which has been previously treated. At this point there is no definite recurrence. Mild persi stent soft tissue thickening measures 2.2 x 1.7 cm. Subcentimeter retroperitoneal lymph nodes. No GI tract obstruction. Continued mild anasarca. Pelvic CT: Appendix is normal. RIGHT adnexal masses probably an ovarian mass measures 5.3 x 6.5 cm. S lightly decreased in size since the prior study. There are calcifications and increased vascularity. The endometrium is not well seen on CT evaluation. No significant amount of ascites within the pelvis . No adenopathy. There is soft tissue anasarca. Lytic lesion in the L2 vertebral body measures 19 mm. Unchanged since 12/22/2018. Multiple indeterminate but subcentimeter inguinal lymph nodes measuring up to 1 cm in diameter. Addit ional lymph nodes along the cervical chains all measure less than a centimeter but there are numerous which are stable. CT/CT chest abd pel w con* IMPRESSION: 1. New multi lobar groundglass opacifications and a single 7 mm nodule in the LEFT lower lobe since 12/22/2018. May represent pneumonitis or may be post thera peutic. Recommend follow-up imaging in 3 months after treatment. 2. Hilar, mediastinal and LEFT axillary lymph nodes are very minimally greater in size than on the prior study. Could be reactive if this is an infectious pr ocess or neoplastic. 3. New diffuse anasarca throughout the soft tissues of the chest, abdomen and pelvis. 4. Large RIGHT adnexal mass slightly decreased in size as compared to 9. 5. Endometrium cannot be well evaluated by CT. 6. Mixed lytic lesions within the RIGHT ribs, thoracic and lumbar spines as de scribed above. These were all present on the prior study with no progression. 7. New very small bilateral pleural effusions. 8. Small amount of perihepatic fluid. 9. Mild soft tissue thickening at the site of the previously described LEFT re nal mass. No increase in size since 12/22/2018. 10. Stable inguinal and iliac chain lymph nodes.
[2019-09-05] MEDS: iohexol 300 mg/mL 50 mL Btl IV (13:09)
== END 2019-09-05 12:23 | disposition home or self-care (01) ==
LOC: RAD 12:26
PROVIDERS: PCP Family Medicine; Visit Provider Internal Medicine Hematology & Oncology
DX: C54.1 Malignant neoplasm of endometrium (principal); R91.1 Solitary pulmonary nodule; R60.1 Generalized edema; R19.09 Other intra-abdominal and pelvic swelling, mass and lump; M89.9 Disorder of bone, unspecified; J90 Pleural effusion, not elsewhere classified
CPT/HCPCS: 71260; 74177

== ENCOUNTER 2019-09-07 18:13 | Emergency (ER) | payer MEDICAID, SELFPAY ==
[2019-09-07 18:14] VITALS: BP 176/119; PULSE 131; RESP 18; TEMP 37.3; O2SAT 97; BMI 30.1
--- NOTE | 2019-09-07 18:23 | W.ED.WOUNDLC ---
HPI - Wound/Laceration General: Chief Complaint: Wound/Laceration Stated Complaint: OPEN WOUND Time Seen by Provider: 09/07/19 18:23 Source: patient Mode of arrival: ambulatory Limitations: no limitations History of Present Illness: HPI narrative: Patient comes in today for concerns of needing a dressing change on her chronic wound site to her left upper arm. Patient had a dye he since of the surgical wound for her port placement for dialysis. Patient denies any other concerns at this time. Patient appears well. Patient appears in no pain. Review of Systems General: Reports: 10 or more systems reviewed and unremarkable except in HPI and below Skin/Breast: Reports: other (Chronic wound, need dressing change) PFS ED PFSH: Medical History (Updated 09/07/19 @ 18:44 by SHANE Johnson) End stage renal disease Metastatic renal cell carcinoma Pathological fracture Pulmonary hypertension TIA (transient ischemic attack) Uterine cancer Social History Smoking and tobacco status: never smoked Current occupation: Disability Physical Exam Const: COMMON NORMALS: no acute distress and patient oriented x3 GENERAL APPEARANCE: cooperative HENMT: COMMON NORMALS: normocephalic, TM's normal bilaterally and Normal external nose present HEAD & SCALP: normal to inspection and normocephalic NOSE: Normal external nose present TYMPANIC MEMBRANE: TM's normal bilaterally MOUTH: Normal oral and palatal mucosa present THROAT: posterior oropharynx normal Eye: GENERAL EYE: appearance normal, both eyes and all related structures Neck/C-Spine: COMMON NORMALS: full ROM Lymph: LYMPHATIC: no lymphadenopathy noted Chest: COMMONS NORMALS: normal inspection of the chest Resp: COMMON NORMALS: normal respiratory effort EFFORT & INSPECTION: Yes able to speak in complete sentences Cardio: COMMON NORMALS: regular rate and regular rhythm RATE: regular rate RHYTHM: regular rhythm GI: COMMON NORMALS: non-tender : COMMON NORMALS: Yes no CVA tenderness BLADDER/KIDNEY EXAM: Yes no CVA tenderness Back/Pelvis: COMMON NORMALS: no CVA tenderness and thoracic and lumbar spine normal to inspection Extremity: COMMON NORMALS: normal to inspection Neuro: COMMON NORMALS: patient oriented x3 and moves all extremities Psych: COMMON NORMALS: mental status grossly normal and cooperative Skin: NARRATIVE SKIN EXAM: Dehiscence of skin wound to the left upper arm. No purulent drainage is noted. Course Vital Signs: Vital signs: Vital Signs Temperature 99.1 F 09/07/19 18:14 Pulse Rate 90 09/07/19 19:00 Respiratory Rate 14 09/07/19 19:00 Blood Pressure 171/104 09/07/19 19:00 Pulse Oximetry 97 09/07/19 19:00 MDM - Wound/Laceration MDM Narrative: Medical decision making narrative: Patient comes into the ER today for dressing of wound on the left upper arm. Patient had the surgery done on the left upper arm for a shunt placement for dialysis. Wound opened up about 2 weeks ago and since then she has been having to dress it at home. Patient came in tonight to get a packing and dressing done. Patient appears well. No signs of serious infection is noted at this time. An open chronic wound is noted to the anterior left upper arm. Distal pulses are intact. No significant redness or swelling is noted. Wound was packed and redressed with recommendations for follow-up with wound care. Patient reports understanding agreed to plan. Discharge Plan Discharge Patient Disposition: Home, Self-Care Clinical Impression: Dehiscence of external surgical wound Qualifiers: Encounter type: subsequent encounter Qualified Code(s): T81.31XD - Disruption of external operation (surgical) wound, not elsewhere classified, subsequent encounter Condition: Stable Prescriptions: No Action furosemide 40 mg Tablet 40 mg PO DAILY RF: 0 metolazone 5 mg Tablet 5 mg PO DAILY RF: 0 hydralazine 25 mg Tablet 25 mg PO TID RF: 0 simvastatin 40 mg Tablet 40 mg PO DAILY RF: 0 amlodipine 10 mg Tablet 10 mg PO DAILY RF: 0 Stool Softener 100 mg Capsule 100 mg PO DAILY PRN (Reason: Constipation) RF: 0 letrozole 2.5 mg Tablet 2.5 mg PO DAILY RF: 0 Prozac 20 mg Capsule 20 mg PO DAILY RF: 0 metoprolol tartrate 25 mg Tablet 25 mg PO BID RF: 0 Vitamin D2 1,250 mcg (50,000 unit) Capsule 50,000 unit PO Q7D Qty: 5 RF: 0 calcitriol 0.25 mcg Capsule 0.25 mcg PO DAILY Qty: 30 RF: 0 Discharge Orders: Discharge Order (Routine); Ordered 09/07/19 Ordered By: Tyshawn Gibbons Referrals: Ariel Del Castillo MD [Primary Care Provider] - Discharge Diet: Usual diet Discharge Activity: Increase activity as tolerated Activity Restrictions/Additional Instructions: Continue with routine care as directed. Case management will contact you for wound care follow-up. Contact your surgeon to discuss further treatment options. Return to the ER for high fever or new concerns. Coding Level of Care Code ED [employer] for Andrea Malcolm Exam Comprehensive
[2019-09-07 19:00] VITALS: BP 171/104; PULSE 90; RESP 14; O2SAT 97
--- NOTE | 2019-09-08 08:59 | DCPLANNER ---
manager people had message to schedule a follow up appointment for patient with Wound Care. manager people called the Wound Care clinic, spoke with Emperatriz. manager people gave clinic patients information, a follow up appointment was scheduled for Wednesday, September 13, 2019 at 1:00 with Jaja. manager people called patient to inform patient of the scheduled appointment. manager people was unable to speak with patient at this time, a voicemail was left for patient to return outpatient case manager phone call.
--- NOTE | 2019-09-26 08:20 | DCPLANNER ---
Patient attended appointment scheduled for 09.13.19 with Wound Care.
== END 2019-09-07 19:31 | disposition home or self-care (01) ==
PROVIDERS: Emergency Provider Nurse Practitioner Family; PCP Family Medicine
DX: T81.31XA Disruption of external operation (surgical) wound, not elsewhere classified, initial encounter (principal); N18.6 End stage renal disease; Z86.73 Personal history of transient ischemic attack (TIA), and cerebral infarction without residual deficits; C55 Malignant neoplasm of uterus, part unspecified
CPT/HCPCS: 12345; 99281; 99282

== ENCOUNTER 2019-09-08 11:00 | Outpatient (CLI) | payer MEDICAID, SELFPAY ==
--- NOTE | 2019-09-08 08:08 | CT_ITS ---
WS: [id number] CT HEAD TECHNIQUE: Noncontrast and contrast-enhanced CT of the head. CLINICAL INFORMATION: DIZZINES, EVALUATION OF NEW SYMPTOMS COMPARISON: CT March 05, 2019 and MRI July 14, 2018 DLP: 1984.[address] scans at [facility] use at least one of these dose optimization techniques: automat ed exposure control; mA and/or kV adjustment per patient size (includes targeted exams where dose is matched to clinical indication); or iterative reconstruction. FINDINGS: Prior postoperative changes right parietal craniectomy with mesh cranioplasty. Moderate small vessel changes with moderate parenchymal volume loss. Chronic lacunar infarct left caudate is unchanged. No extra-axial fluid collections. No evidence of mass or mass effect. No abnormal intracranial enhanceme nt. Partial opacification of the left greater than right mastoid tips. Paranasal sinuses and mastoid air cells well aerated. CT/CT head wo/w con [id number] IMPRESSION: 1. Prior postoperative changes right parietal craniectomy with mesh cranioplas ty. 2. No evidence of intracranial hemorrhage or mass effect. 3. No enhancing intracranial lesions. 4. Moderate small vessel changes with moderate parenchymal volume loss. 5. Left caudate lacunar infarct unchanged since March 05, 2019. 6. Partial opacification mastoid tips.
[2019-09-08] MEDS: iodixanol 320 mg/mL 100mL Btl IV (08:51)
[2019-09-08 11:24] LABS: Basophils % 0.3 %; Eosinophils # 0.3 10^3/uL (0.0-0.8); Eosinophils % 4.6 %; Hematocrit 29.7 % (37.0-47.0); Hemoglobin 8.8 g/dL (11.5-15.3); Lymphocytes # 0.6 10^3/uL (0.8-4.8); Lymphocytes % 9.8 %; Mean Corpuscular HGB Conc 29.6 g/dL (30.0-36.0); Mean Corpuscular Hemoglobin 32.1 pg (28.0-34.0); Mean Corpuscular Volume 108.4 fL (81-99); Mean Platelet Volume 10.9 fL (7.4-10.4); Monocytes # 0.5 10^3/uL (0.2-0.9); Monocytes % 9.3 %; Neutrophils # 4.4 10^3/uL (1.8-7.7); Neutrophils % 75.1 %; Nucleated Red Blood Cells % 0 %; Platelet Count 184 10^3/cmm (130-400); Red Blood Count 2.74 10^6/uL (4.1-5.3); Red Cell Distribution Width 15.5 % (12.1-15.1); White Blood Count 5.8 10^3/uL (4.0-10.0)
[2019-09-08 11:51] LABS: Alanine Aminotransferase 37 U/L (0-33); Albumin Level 3.2 g/dL (3.5-5.2); Alkaline Phosphatase 139 IU/L (35-105); Anion Gap 21.8 (5-19); Aspartate Amino Transferase 53 U/L (0-32); Blood Urea Nitrogen 32 mg/dL (8-23); Calcium 7.9 mg/dL (8.5-10.5); Carbon Dioxide 22 mmol/L (22-29); Chloride 99 mmol/L (98-107); Globulin 2.4 g/dL (1.3-4.6); Glomerular Filtration Rate 7.9 mL/min (90-130); Glucose 160 mg/dL (65-115); Osmolality Calculated 287 mOsm/kg (285-295); Potassium 4.8 mmol/L (3.5-5.1); Sodium 138 mmol/L (136-145); Total Bilirubin 0.2 mg/dL (0.15-1.2); Total Protein 5.6 g/dL (6.6-8.7)
== END 2019-09-08 11:01 | disposition home or self-care (01) ==
PROVIDERS: Family Provider Family Medicine; PCP Family Medicine; Visit Provider Internal Medicine Hematology & Oncology
DX: C54.1 Malignant neoplasm of endometrium (principal); C64.2 Malignant neoplasm of left kidney, except renal pelvis; C79.51 Secondary malignant neoplasm of bone; E11.22 Type 2 diabetes mellitus with diabetic chronic kidney disease; E11.42 Type 2 diabetes mellitus with diabetic polyneuropathy; I12.9 Hypertensive chronic kidney disease with stage 1 through stage 4 chronic kidney disease, or unspecified chronic kidney disease; N18.9 Chronic kidney disease, unspecified; I50.9 Heart failure, unspecified; F32.9 Major depressive disorder, single episode, unspecified; E78.5 Hyperlipidemia, unspecified; I27.20 Pulmonary hypertension, unspecified; Z79.899 Other long term (current) drug therapy
CPT/HCPCS: 36415; 70470; 80053; 85025; Q9967

== ENCOUNTER 2019-09-11 13:40 | Outpatient (CLI) | payer MEDICAID, SELFPAY ==
[2019-09-11] MEDS: denosumab 120 mg SDV SUBCUT (15:40)
--- NOTE | 2019-09-11 17:19 | ONC FU_ITS ---
Dr. Brady follow up note Patient: Shamika Hickman Unit #: [id number]: [id number] Dicatated By: Nathan Brady M.D.Date of Visit:September 11, 2019 Onc Med Follow-up/Prog Note History of Present Illness: Mrs. 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 And then patient had some social issues she moved from [place] to [place] close to her family and recently she was evaluated by [facility] and urologist for combined cytoreductive nephrectomy and hysterectomy. In January this year she underwent left lateral lymph node biopsy and cytology was negative in late January 2018 she sustained a pathological fracture of left humerus which he was initially treated with splinting and eventually seen by Dr. Ivan and on 03/15/2018 she underwent left humerus ORIF, curettage and cementation. The pathology confirmed metastatic clear cell carcinoma and she also underwent T9 core biopsy which was also consistent with clear cell carcinoma and she has not undergone any further workup for ovarian mass. Given her evidence of metastatic involvement cytoreductive nephrectomy and hysterectomy was put on hold. Patient was referred to [facility] in [place] , on 03/22/[address] Sebastian Spencer who recommended and started her on cabozantinib 20 mg by mouth daily, and also recommended noncontrasted CT scan of chest abdomen pelvis and bone scan but patient did not go for that because of transportation issues. And CT scan of chest abdomen pelvis done on 05/12/2018 showed bilateral upper and midlung zone innumerable less than 5 mm pulmonary nodules e.g. metastatic disease versus atypical pneumonia. cabometyx was increased to 40 milligrams daily tolerated well with normal blood counts and her dose was increased to 60 mg by mouth daily on 07/28/2018 Mild cardiomegaly Left kidney superior pole 5.3 x 6.5% 0.5 cm mass No significant change in right radial mixed solid and cystic mass with calcifications Mild bilateral inguinal lymphadenopathy. Bone scan done on 05/12/2018 showed right sixth rib, distal sternum and left humerus metastatic disease status post left humerus fracture with internal fixation Chronic renal failure on hemodialysis MRI of the head without contrast from 07/14/2017 reported T2 hyperintense soft tissue nodule involving the right parietal occipital calvarium. This involves the inner outer tables with extension into the scalp. This lesion measures approximately 1.5 x 1.6 x 1.8 cm suspicious for metastatic disease. No other visualized calvarial lesions. Mild small vessel changes with moderate parenchymal volume loss. Partial opacification mastoid air cells bilaterally. Single punctuate focus of hemosiderin in the left frontal white matter. No other significant findings. Referred to radiology for CT-guided biopsy of scalp mass Which confirmed clear cell carcinoma Underwent excision of this mass on 09/22/2018 final pathology report showed metastatic clear cell carcinoma .Follow-up CT scan of chest abdomen pelvis done on 12/22/2018 showed resolved previously widespread nodularity of lung parenchyma since 05/12/2018 Stable parenchymal scarring left upper and lower lobes Improvement in the previous bilateral axillary lymphadenopathy Lytic bony metastatic disease with mixed therapeutic response. Decrease in bulk of previous upper pole left renal mass Progressive lytic metastatic disease of L2 vertebra and new lytic lesion of right L4 transverse process. Marginal increase in size of right ovarian mass Improvement in previous mild bilateral inguinal lymphadenopathy CT scan of head done on 12/30/2018 showed no evidence of intracranial hemorrhage or mass effect right partial craniotomy with mesh cranioplasty. Patient was referred to [facility]ology in [place] where she saw Dr. Otoole on 01/25/2019 and as per her evaluation she is recommended Femara 2.5 mg by mouth daily for her newly diagnosed endometrial cancer and also wants to review and discuss regarding timing of surgery. Patient had episode of TIA on 03/05/2019 for which she was admitted to hospital and CT scan of head was done on 03/05/2019 which showed no evidence of brain metastases or any acute changes. Patient presented with difficulty in speech and confusion but during hospital stay she improved no TPA was considered because of history of renal cell carcinoma with brain metastases She continues with the cabometyx for the renal cancer and Femara for the endometrial cancer.And on monthly Xgeva. Episode of diarrhea which improved with holding off cabometyx but patient said she started taking 40 mg daily for 2 days then gone up to schedule dose 60 mg daily 3 days ago now tolerating well with mild diarrhea, which is improving. Follow-up CT scan of chest abdomen pelvis done on 09/05/2019 showed, new multilobar groundglass opacification and is single 7 mm nodule in the left lower lobe since 12/22/2018 may present pneumonitis, Hilar, mediastinal and left exited lymph node is a very minimally greater than size than on previous study could be reactive or neoplastic X Right adnexal mass slight decrease in size as compared to 12/22/2018 Mixed lytic lesions within the right ribs, thoracic and lumbar spine these were all present on prior study within no progression No increase in size of renal mass. Stable inguinal/iliac chain lymph nodes tolerating cabometyx and Femara well Came for follow-up, denies any specific complaint except generalized weakness and fatigue, no shortness of breath or wheezing at rest, no hemoptysis or hematemesis, no melena or hematochezia . Medications: AmLODIPine Besylate 1 (10 mg) Tablet Oral daily, Calcium Acetate (Phos Binder) 2 Capsule (of 667 mg) Tablet Oral t.i.d., carbometyx 60 mg (of 20 mg) Tablet Oral daily, D-1000 1 Tablet (of 1000 Units) Oral daily, Furosemide 1 Tablet (of 40 mg) Oral daily, HumaLOG Subcutaneous, HydrALAZINE HCl 1 (25 mg) Tablet Oral four times a day, MetOLazone 1 Tablet (of 5 mg) Oral b.i.d., Metoprolol Tartrate 1 (25 mg) Tablet Oral b.i.d., PROzac 1 Capsule (of 20 mg) Oral daily, Senna-Plus 2 (8.6-50 mg) Tablet Oral b.i.d., Simvastatin 1 (40 mg) Tablet Oral at bedtime, Sodium Bicarbonate 1 Tablet (of 650 mg) Oral daily Allergies: No Known Allergies. Review of Systems: Constitutional - Appetite is good and weight is stable. No fever, chills, or night sweats. Positive for hot flashes. Energy level is poor, ENMT - No sinus congestion/drainage. No mouth sores. Negative for sore throat and difficulty swallowing, Hematologic/Lymphatic - Positive for easy bruising, Respiratory - No shortness of breath. No cough. No pleuritic pain or hemoptysis, Cardiovascular - No angina pain. No palpitations, Gastrointestinal - Occasional Nausea, no vomiting. No heartburn or acid reflux. No diarrhea or constipation. No blood in the stool or black stools, Genitourinary (F) - Occasional hematuria. No urinary frequency. No urgency or incontinence. Pt continues to receive dialysis, Musculoskeletal - No joint or bone pain, Neurologic - Pt reports occasional headaches, Psychiatric - Occasional bouts of anxiety/depression. No insomnia. Vital Signs: Performed on September 11, 2019 15:08 Height - 62.00 in Weight - 169 lbs (LOW) BSA - 1.78 sq.m BMI - 30.91 (HIGH) Temperature - 97.7 F (LOW) Pulse - 97 /min Respiration - 17 /min BP - 174/81 mm(hg) (HIGH) O2 Sat - 98 % Pain - 5 Performance Status: 2 - Ambulatory/capable of all self-care, unable to perform any work activities. Up and about more than 50% of waking hours. (ECOG) Physical Examination: ENMT - no mouth sores, Respiratory - Lungs are clear, Cardiovascular - Regular rate and rhythm of heart, Abdomen - soft, bowel sounds present, Extremities - 2+ edema bilaterally. Lab/Imaging: Test performed on September 08, 2019 11:00 Sodium 138 mmol/L Potassium 4.8 mmol/L Chloride 99 mmol/L CO2 22 mmol/L Anion Gap 21.8 BUN 32 mg/dL Creatinine 5.5 mg/dL Cr Clearance (Est) 13.3200 mL/min eGFR 7.9 mL/min Glucose 160 mg/dL Calcium 7.9 mg/dL Protein, Total 5.6 g/dL Albumin 3.2 g/dL Globulin 2.4 g/dL Bilirubin, Total 0.2 mg/dL ALT (SGPT) 37 U/L AST (SGOT) 53 U/L Alkaline Phosphatase 139 IU/L WBC 5.8 10 3/uL RBC 2.74 10 6/uL HGB 8.8 g/dL HCT 29.7 % MCV 108.4 fL MCH 32.1 pg MCHC 29.6 g/dL RDW 15.5 % Platelet Count 184 10 3/cmm MPV 10.9 fL Neutrophils 4.4 10 3/uL Lymphocytes 0.6 10 3/uL Monocytes 0.5 10 3/uL Eosinophils 0.3 10 3/uL Basophils 0.0 10 3/uL Neutrophil % 75.1 % Lymphocyte % 9.8 % Monocyte % 9.3 % Eosinophil % 4.6 % Basophils % 0.3 % Test performed on May 04, 2019 09:20 Manual Lymphocytes 17.6 % Manual Monocytes 11.8 % Manual Eosinophils 3.9 % Manual Basophils 0.7 % NRBCs 0.0 /100 WBC Impression: Metastatic renal cell carcinoma with left humerus involvement status post left humeral fracture status post ORIF in February 2018 and T9, confirmed with biopsy On cabometyx 40 mg by mouth daily Grade 1 endometrial carcinoma further treatment e.g. hysterectomy is on hold because of recently diagnosed metastatic renal cell carcinoma. Now on Femara 2.5 mg daily Ovarian mass of unknown etiology, oophorectomy is on hold because of above-mentioned issue. History of pulmonary hypertension History of chronic renal disease .On hemodialysis now CT scan of chest abdomen pelvis done on 05/12/2018 showed bilateral upper and mid lung zone innumerable less than 5 mm pulmonary nodules metastatic disease versus atypical pneumonia Multiple osseous metastatic disease potential involvement of T9 Bilateral axillary lymphadenopathy may be reactive due to edema or metastatic disease cannot be excluded. Left kidney is. Pole 5.3 x 6.5 x 7.5 No significant change in right ovarian mixed solid and cystic mass with calcification malignant ovarian neoplasm within the differential .Bone scan done on 05/12/2018 showed increase uptake in right lateral sixth rib, distal sternum, left humerus and status post fixation pathological fracture left humerus, increasing uptake throughout the largest portion of left humerus MRI of the head without contrast from 07/14/2017 reported T2 hyperintense soft tissue nodule involving the right parietal occipital calvarium. This involves the inner outer tables with extension into the scalp. This lesion measures approximately 1.5 x 1.6 x 1.8 cm suspicious for metastatic disease. No other visualized calvarial lesions. Mild small vessel changes with moderate parenchymal volume loss. Partial opacification mastoid air cells bilaterally. Single punctuate focus of hemosiderin in the left frontal white matter. No other significant findings. Underwent excisional biopsy on 09/22/2018 showed metastatic clear cell carcinoma. Plan: Discussed with patient regarding her labs shows white blood count 5.8 hemoglobin 8.8 hematocrit 29.7 platelets 184,000 CMP within normal limit except creatinine 5.5 glucose 160 and follow-up CT scan of chest abdomen pelvis which shows stable/mild progression disease and decrease in right adnexal mass size. Mild/moderate anemia, stable, multifactorial etiology. Clinically, patient is doing well, with no signs symptom suggestive of disease progression. Tolerating cabozantinib for metastatic renal cell carcinoma and Femara for history of endometrial carcinoma, well But with expected side effects. Her follow-up CT scan of chest abdomen pelvis shows stable/mild progression. Questionable pneumonitis involving left lung but patient is not symptomatic. We will repeat her CT scan of chest in 3 months when she return to clinic with CBC CMP.In the meantime we will proceed with dose of monthly Xgeva today and then change Xgeva to every 3 months as her bone scan done on 06/03/2019 shows persistent multiple skeleton abnormality but stable Signed By: Nathan Brady M.D. <<Signature on File>>
== END 2019-09-11 13:41 | disposition home or self-care (01) ==
LOC: ONCMED 13:44
PROVIDERS: PCP Family Medicine; Visit Provider Internal Medicine Hematology & Oncology
DX: C64.9 Malignant neoplasm of unspecified kidney, except renal pelvis (principal); C54.1 Malignant neoplasm of endometrium; C79.51 Secondary malignant neoplasm of bone; C79.2 Secondary malignant neoplasm of skin; N18.6 End stage renal disease; Z99.2 Dependence on renal dialysis; D64.9 Anemia, unspecified; R91.8 Other nonspecific abnormal finding of lung field; Z79.899 Other long term (current) drug therapy
CPT/HCPCS: 96372; 99214; J0897

== ENCOUNTER 2019-09-19 07:52 | Outpatient (CLI) | payer MEDICAID, SELFPAY | END 2019-09-19 07:53 | disposition home or self-care (01) | LOC: WOUND 07:52 | PROVIDERS: PCP Family Medicine; Visit Provider Thoracic Surgery (Cardiothoracic Vascular Surgery) | DX: T81.89XA Other complications of procedures, not elsewhere classified, initial encounter (principal); Y83.8 Other surgical procedures as the cause of abnormal reaction of the patient, or of later complication, without mention of misadventure at the time of the procedure | CPT/HCPCS: 11042; 11045; 87070; 87077; 87186; 87205; G0463 ==

== ENCOUNTER 2019-09-22 10:17 | Outpatient (CLI) | payer MEDICAID, SELFPAY ==
[2019-09-22 10:47] LABS: Vancomycin Trough 10.4 ug/mL (10-15)
== END 2019-09-22 10:18 | disposition home or self-care (01) ==
LOC: LAB 10:19
PROVIDERS: PCP Family Medicine; Visit Provider Surgery
DX: T81.31XA Disruption of external operation (surgical) wound, not elsewhere classified, initial encounter (principal); X58.XXXA Exposure to other specified factors, initial encounter
CPT/HCPCS: 80202

== ENCOUNTER 2019-10-07 02:25 | Emergency (ER) | payer MEDICAID, SELFPAY ==
[2019-10-07 02:26] VITALS: BMI 28.3
[2019-10-07 02:33] VITALS: BP 170/80; PULSE 89; RESP 18; TEMP 36.3; O2SAT 98
--- NOTE | 2019-10-07 03:13 | ED_ITS ---
HPI - General Adult General: Chief complaint: Nausea/Vomiting/Diarrhea Stated complaint: nausea/ leg pain Time Seen by Provider: 10/07/19 02:42 Source: patient Mode of arrival: ambulatory Limitations: no limitations History of Present Illness: HPI narrative: Patient is a 63-year-old female who presents via EMS for complaints of left leg pain relating to a sore that has been present over the past few weeks. Patient tells me several months ago she had the same sort to the area that wound care got to heal however complains that sore has returned. Patient is a diabetic. She tells me she is already seeing wound care for a different sore to her left upper extremity. Patient has not noticed any swelling, diffuse redness to the leg, or drainage from the area. Onset (ago): week(s) Location: lower extremity Associated symptoms: Deny chest pain, dyspnea, malaise, nausea or vomiting Review of Systems General: Reports: 10 or more systems reviewed and unremarkable except in HPI and below Const: Denies: fever(s), chills, body aches, change in appetite, change in weight, fatigue, malaise or night sweats Card: Denies: chest pain Resp: Denies: dyspnea GI: Denies: nausea or vomiting Musc: Reports: extremity pain (relating to sore to L LE); Denies: neck pain or back pain Skin/Breast: Reports: new lesions (L LE sore) Neuro: Denies: numbness in extremities, weakness in extremities or sensory changes PFSH ED PFSH: Medical History (Updated 10/07/19 @ 03:15 by ABDULAZIZ Isabel) End stage renal disease Metastatic renal cell carcinoma Pathological fracture Pulmonary hypertension TIA (transient ischemic attack) Uterine cancer Social History Smoking and tobacco status: former smoker Current occupation: Disability Physical Exam Const: COMMON NORMALS: no acute distress, patient oriented x3, no limitations and alert Resp: COMMON NORMALS: normal respiratory effort and clear to auscultation bilaterally AUSCULTATION: clear to auscultation bilaterally Cardio: COMMON NORMALS: regular rate and regular rhythm RATE: regular rate RHYTHM: regular rhythm Extremity: GENERAL: Yes normal exam except as noted OTHER: bilateral LE edema; pt has small 2cm shallow sore to L lateral leg; there is no drainage, odor, or surrounding erythema apart from at wound edges Neuro: COMMON NORMALS: patient oriented x3 SENSORIUM/ORIENTATION: Yes alert Course Vital Signs: Vital signs: Vital Signs Temperature 97.4 F L 10/07/19 02:33 Pulse Rate 89 10/07/19 02:33 Respiratory Rate 18 10/07/19 02:33 Blood Pressure 170/80 10/07/19 02:33 Pulse Oximetry 98 10/07/19 02:33 MDM - General Adult MDM Narrative: Medical decision making narrative: At this time there is no active infection to patient's lesion. Recommend she keep clean at home and speak to wound care about the sore. Return to ED precautions given. Discharge Plan Discharge Patient Disposition: Home, Self-Care Clinical Impression: Sore on leg Condition: Stable Prescriptions: No Action furosemide 40 mg Tablet 40 mg PO DAILY RF: 0 metolazone 5 mg Tablet 5 mg PO DAILY RF: 0 hydralazine 25 mg Tablet 25 mg PO TID RF: 0 simvastatin 40 mg Tablet 40 mg PO DAILY RF: 0 amlodipine 10 mg Tablet 10 mg PO DAILY RF: 0 Stool Softener 100 mg Capsule 100 mg PO DAILY PRN (Reason: Constipation) RF: 0 letrozole 2.5 mg Tablet 2.5 mg PO DAILY RF: 0 Prozac 20 mg Capsule 20 mg PO DAILY RF: 0 metoprolol tartrate 25 mg Tablet 25 mg PO BID RF: 0 Vitamin D2 1,250 mcg (50,000 unit) Capsule 50,000 unit PO Q7D Qty: 5 RF: 0 calcitriol 0.25 mcg Capsule 0.25 mcg PO DAILY Qty: 30 RF: 0 Discharge Orders: Discharge Order (Routine); Ordered 10/07/19 Ordered By: Silvia Tavares Referrals: Ariel Del Castillo MD [Primary Care Provider] - Activity Restrictions/Additional Instructions: You have indicated you are already seeing wound care for a wound to your left arm. I recommend you have them evaluate your left leg sore as well. Coding Level of Care Code ED Laborer [employer] for Andrea Malcolm
[2019-10-07 03:28] VITALS: BP 158/98; PULSE 91; RESP 18; O2SAT 98
== END 2019-10-07 03:30 | disposition home or self-care (01) ==
PROVIDERS: Emergency Provider Physician Assistant; PCP Family Medicine
DX: L98.9 Disorder of the skin and subcutaneous tissue, unspecified (principal); N18.6 End stage renal disease; Z86.73 Personal history of transient ischemic attack (TIA), and cerebral infarction without residual deficits; Z85.42 Personal history of malignant neoplasm of other parts of uterus; Z87.891 Personal history of nicotine dependence
CPT/HCPCS: 12345; 99281; 99283

== ENCOUNTER 2019-10-12 06:49 | Emergency (ER) | payer MEDICAID, SELFPAY ==
[2019-10-12 06:50] VITALS: BP 164/84; PULSE 95; RESP 97; TEMP 36.6; O2SAT 99; BMI 30.1
--- NOTE | 2019-10-12 07:03 | XR_ITS ---
WS: [id number] XR chest 1V portable [id number] REASON FOR EXAM: dyspnea FINDINGS: Comparisons were made to August 10, 2019. A triple-lumen catheter is again seen on the right side in good position. There is borderline cardiomegaly. There is deformity of the seventh and eighth ribs suggesting remote fractures. There is no pneumonia pulmonary edema pleural effusion or mass effect. XR/XR chest 1V portable [id number] IMPRESSION: Triple-lumen catheter good position. Borderline cardiomegaly Remote fractures of the mid ribs on the right.
[2019-10-12 07:04] VITALS: O2SAT 94
--- NOTE | 2019-10-12 07:04 | ED_ITS ---
HPI - Anxiety General: Chief Complaint: Anxiety Stated Complaint: ANXIETY Time Seen by Provider: 10/12/19 06:50 History of Present Illness: HPI narrative: Various complaints. Patient cannot isolate a specific reason for why she came to the emergency room this morning. Patient states that she is anxious, is having trouble sleeping, and is short of breath. Patient had an appointment with her PCP this morning but decided to come to the ER instead. MD complaint: anxiety and shortness of breath Onset (ago): unknown Symptoms: dyspnea Severity: similar to previous episodes Quality: constant History of similar episodes: Yes Provoking factors: none known Relieving factors: nothing Exacerbating factors: nothing Associated symptoms: Reports short of breath Review of Systems General: Reports: 10 or more systems reviewed and unremarkable except in HPI and below PFSH ED PFSH: Medical History End stage renal disease Metastatic renal cell carcinoma Pathological fracture Pulmonary hypertension TIA (transient ischemic attack) Uterine cancer Social History Smoking and tobacco status: never smoked Current occupation: Disability Physical Exam Const: COMMON NORMALS: no acute distress, healthy appearing and well nourished GENERAL APPEARANCE: cooperative and well developed HENMT: COMMON NORMALS: normocephalic and atraumatic HEAD & SCALP: normal to inspection, normocephalic and atraumatic Eye: GENERAL EYE: appearance normal, both eyes and all related structures Neck/C-Spine: COMMON NORMALS: full ROM, no lymphadenopathy and no meningeal signs GENERAL: Yes normal visual inspection CERVICAL SPINE: Yes cervical ROM normal and Yes normal cervical lordosis Chest: COMMONS NORMALS: normal inspection of the chest and normal palpation of entire chest wall Resp: COMMON NORMALS: normal respiratory effort and percussion normal AUSCULTATION: rales PERCUSSION: percussion normal Cardio: COMMON NORMALS: regular rate, regular rhythm, S1 normal heart sound present and S2 normal heart sound present JUGULAR VENOUS DISTENTION: no JVD PALPATION: normal PMI RATE: regular rate RHYTHM: regular rhythm HEART SOUNDS: S1 normal heart sound present and S2 normal heart sound present GI: COMMON NORMALS: Soft to palpation and No hepatosplenomegaly present INSPECTION: Yes normal to inspection PALPATION: Yes Soft to palpation and Yes No hepatosplenomegaly present PERCUSSION: normal to percussion : COMMON NORMALS: Yes no CVA tenderness BLADDER/KIDNEY EXAM: Yes no CVA tenderness Back/Pelvis: COMMON NORMALS: no CVA tenderness, thoracic and lumbar spine normal to inspection and thoraco-lumbar ROM normal Extremity: COMMON NORMALS: normal to inspection, full ROM and capillary refill normal Neuro: MENINGEAL SIGNS: Yes no meningeal signs Skin: COMMON NORMALS: no rashes or lesions noted, no wounds and turgor normal GENERAL SKIN EXAM: no rashes or lesions noted, elasticity normal and turgor normal LESIONS: no lesions RASHES: no rashes TRAUMA: no lacerations or abrasions HAIR: normal NAILS: normal Course Vital Signs: Vital signs: Vital Signs Temperature 97.9 F 10/12/19 06:50 Pulse Rate 95 10/12/19 06:50 Respiratory Rate 97 H 10/12/19 06:50 Blood Pressure 164/84 10/12/19 06:50 Pulse Oximetry 94 10/12/19 07:04 MDM - Anxiety Lab Data: Labs: Lab Results 10/12/19 10/12/19 Range/Units 07:18 07:54 WBC 7.8 (4.0-10.0) 10^3/ uL RBC 3.62 L (4.1-5.3) 10^6/u L Hgb 11.5 (11.5-15.3) g/dL Hct 38.2 (37.0-47.0) % MCV 105.5 H (81-99) fL MCH 31.8 (28.0-34.0) pg MCHC 30.1 (30.0-36.0) g/dL RDW 13.7 (12.1-15.1) % Plt Count 126 L (130-400) 10^3/c mm MPV 10.6 H (7.4-10.4) fL Neut % (Auto) 80.8 % Lymph % (Auto) 8.1 % [place] % (Auto) 9.3 % Eos % (Auto) 1.2 % Baso % (Auto) 0.5 % Neut # (Auto) 6.3 (1.8-7.7) 10^3/u L Lymph # (Auto) 0.6 L (0.8-4.8) 10^3/u L [place] # (Auto) 0.7 (0.2-0.9) 10^3/u L Eos # (Auto) 0.1 (0.0-0.8) 10^3/u L Baso # (Auto) 0.0 (0.0-0.1) 10^3/u L Nucleated RBC % (a uto) 0 % Nucleated RBCs # 0.0 /100WBC Sodium 141 (136-145) mmol/L Potassium 5.5 H (3.5-5.1) mmol/L Chloride 99 (98-107) mmol/L Carbon Dioxide 30 H (22-29) mmol/L Anion Gap 17.5 (5-19) BUN 26 H (8-23) mg/dL Creatinine 4.6 H (0.5-0.9) mg/dL GFR Calculation 9.7 L (90-130) mL/min Glucose 120 H (65-115) mg/dL Calculated Osmolal ity 290 (285-295) mOsm/k g Calcium 7.5 L (8.5-10.5) mg/dL Total Bilirubin 0.3 (0.15-1.2) mg/dL AST 24 (0-32) U/L ALT 27 (0-33) U/L Alkaline Phosphata se 117 H (35-105) IU/L Total Protein 5.9 L (6.6-8.7) g/dL Albumin 3.6 (3.5-5.2) g/dL Globulin 2.3 (1.3-4.6) g/dL Discharge Plan Discharge Patient Disposition: Home, Self-Care Clinical Impression: Acute anxiety, Panic disorder, Acute exacerbation of chronic obstructive pulmonary disease (COPD) Condition: Stable Prescriptions: New albuterol sulfate 90 mcg/actuation HFA aerosol inhaler 2 inh INHALATION Q6H Qty: 8.5 RF: 1 No Action furosemide 40 mg Tablet 40 mg PO DAILY RF: 0 metolazone 5 mg Tablet 5 mg PO DAILY RF: 0 hydralazine 25 mg Tablet 25 mg PO TID RF: 0 simvastatin 40 mg Tablet 40 mg PO DAILY RF: 0 amlodipine 10 mg Tablet 10 mg PO DAILY RF: 0 Stool Softener 100 mg Capsule 100 mg PO DAILY PRN (Reason: Constipation) RF: 0 letrozole 2.5 mg Tablet 2.5 mg PO DAILY RF: 0 Prozac 20 mg Capsule 20 mg PO DAILY RF: 0 metoprolol tartrate 25 mg Tablet 25 mg PO BID RF: 0 Vitamin D2 1,250 mcg (50,000 unit) Capsule 50,000 unit PO Q7D Qty: 5 RF: 0 calcitriol 0.25 mcg Capsule 0.25 mcg PO DAILY Qty: 30 RF: 0 Discharge Orders: Discharge Order (Routine); Ordered 10/12/19 Ordered By: Sree Manrique Referrals: Ariel Del Castillo MD [Primary Care Provider] - Coding Level of Care Code ED Solution Designer for Chg Fwd Exam Comprehensive
[2019-10-12 07:48] LABS: Alanine Aminotransferase 27 U/L (0-33); Albumin Level 3.6 g/dL (3.5-5.2); Alkaline Phosphatase 117 IU/L (35-105); Anion Gap 17.5 (5-19); Aspartate Amino Transferase 24 U/L (0-32); Blood Urea Nitrogen 26 mg/dL (8-23); Calcium 7.5 mg/dL (8.5-10.5); Carbon Dioxide 30 mmol/L (22-29); Chloride 99 mmol/L (98-107); Globulin 2.3 g/dL (1.3-4.6); Glomerular Filtration Rate 9.7 mL/min (90-130); Glucose 120 mg/dL (65-115); Osmolality Calculated 290 mOsm/kg (285-295); Potassium 5.5 mmol/L (3.5-5.1); Sodium 141 mmol/L (136-145); Total Bilirubin 0.3 mg/dL (0.15-1.2); Total Protein 5.9 g/dL (6.6-8.7)
[2019-10-12 07:57] LABS: Basophils % 0.5 %; Eosinophils # 0.1 10^3/uL (0.0-0.8); Eosinophils % 1.2 %; Hematocrit 38.2 % (37.0-47.0); Hemoglobin 11.5 g/dL (11.5-15.3); Lymphocytes # 0.6 10^3/uL (0.8-4.8); Lymphocytes % 8.1 %; Mean Corpuscular HGB Conc 30.1 g/dL (30.0-36.0); Mean Corpuscular Hemoglobin 31.8 pg (28.0-34.0); Mean Corpuscular Volume 105.5 fL (81-99); Mean Platelet Volume 10.6 fL (7.4-10.4); Monocytes # 0.7 10^3/uL (0.2-0.9); Monocytes % 9.3 %; Neutrophils # 6.3 10^3/uL (1.8-7.7); Neutrophils % 80.8 %; Nucleated Red Blood Cells % 0 %; Platelet Count 126 10^3/cmm (130-400); Red Blood Count 3.62 10^6/uL (4.1-5.3); Red Cell Distribution Width 13.7 % (12.1-15.1); White Blood Count 7.8 10^3/uL (4.0-10.0)
[2019-10-12 08:17] VITALS: BP 179/107; PULSE 95; O2SAT 92
[2019-10-12 08:34] LABS: NT Pro B Type Natriuretic Pept > 70000 pg/mL (0-125)
== END 2019-10-12 08:17 | disposition home or self-care (01) ==
PROVIDERS: Emergency Provider Family Medicine; PCP Family Medicine
DX: F41.9 Anxiety disorder, unspecified (principal); F41.0 Panic disorder [episodic paroxysmal anxiety]; J44.1 Chronic obstructive pulmonary disease with (acute) exacerbation; N18.6 End stage renal disease; Z85.528 Personal history of other malignant neoplasm of kidney; Z85.42 Personal history of malignant neoplasm of other parts of uterus; Z86.73 Personal history of transient ischemic attack (TIA), and cerebral infarction without residual deficits
CPT/HCPCS: 12345; 36415; 71045; 80053; 83880; 85025; 99281; 99283

== ENCOUNTER 2019-11-09 13:49 | Outpatient (CLI) | payer MEDICAID, SELFPAY | END 2019-11-09 13:50 | disposition home or self-care (01) | LOC: WOUND 13:50 | PROVIDERS: PCP Family Medicine; Visit Provider Emergency Medicine | DX: E11.622 Type 2 diabetes mellitus with other skin ulcer (principal); L97.822 Non-pressure chronic ulcer of other part of left lower leg with fat layer exposed | CPT/HCPCS: 11042; 11045; 87070; 87077; 87176; 87186; 87205; G0463 ==

== ENCOUNTER 2019-11-16 14:51 | Outpatient (CLI) | payer MEDICAID, SELFPAY | END 2019-11-16 14:52 | disposition home or self-care (01) | LOC: WOUND 14:52 | PROVIDERS: PCP Family Medicine; Visit Provider Nurse Practitioner Family | DX: E11.622 Type 2 diabetes mellitus with other skin ulcer (principal); L97.829 Non-pressure chronic ulcer of other part of left lower leg with unspecified severity | CPT/HCPCS: 99214 ==

== ENCOUNTER 2019-11-24 07:10 | Outpatient (CLI) | payer MEDICAID, SELFPAY ==
--- NOTE | 2019-11-24 | USCV_ITS ---
Vick Shamika Age: 64 Gender: F : 1955 Exam Date: 11/24/2019 07:29 Ordering Phys: Moon Johnson DO Technologist: Pretty Neville [place] [facility] [place]: HISTORY: Patient has ulcers. PROCEDURES: Bilateral duplex Venous Insufficiency study of the Deep and Superficial systems was carried out according to normal protocol with the patient in supine positon for deep system and dependent position for the superficial system. FINDINGS: There is no evidence of bilateral deep vein thrombosis. No evidence of superficial thrombosis in the bilateral saphenous system. No evidence of reflux was noted in the bilateral deep venous system. No venous reflux noted in the bilateral greater saphenous vein. No venous reflux noted in the bilateral small saphenous vein. Lower extremity edema noted throughout extremity. No perferators noted around area of wound. Multiple echolucent areas are noted in the subcutaneous tissue. CONCLUSIONS No evidence of DVT in the above-mentioned identifiable veins. No significant venous reflux bilaterally Features of fluid retention/edema in both lower legs Dr Tita Coburn MD [facility] (Electronically Signed) Final Date: 25 November 2019 09:10 S
== END 2019-11-24 07:11 | disposition home or self-care (01) ==
PROVIDERS: PCP Family Medicine; Visit Provider Emergency Medicine
DX: M79.604 Pain in right leg (principal); M79.605 Pain in left leg; L97.529 Non-pressure chronic ulcer of other part of left foot with unspecified severity; L97.519 Non-pressure chronic ulcer of other part of right foot with unspecified severity; L53.9 Erythematous condition, unspecified
CPT/HCPCS: 93970

== ENCOUNTER 2019-11-27 13:42 | Outpatient (CLI) | payer MEDICAID, SELFPAY ==
--- NOTE | 2019-11-27 14:57 | USCV_ITS ---
Shamika Hickman Age: 64 Gender: F : 1955 Exam Date: 11/27/2019 14:51 Ordering Phys: Moon Johnson DO Technologist: Exam Location: [facility] [place]_ Indication: PAIN RIGHT LEFT Brachial 152.00 mmHg Brachial mmHg Pressure (mmHg) Waveform Pressure (mmHg) Waveform 115.00 Pre-Exercise Toe Pressure 142.00 0.76 Pre-Exercise Toe/Brachial Index 0.93 FINDINGS Unable to obtain left brachial pressure due to dialysis catheter. Normal resting TBIs bilaterally Noncompressible arteries bilaterally Abnormal PVR waveforms bilaterally CONCLUSIONS No significant arterial obstruction, based on the PEDRO LUIS and TBIs bilaterally However the abnormal PVR waveforms, may suggest severe peripheral arterial disease versus technical problems with the pressure cuff application. Clinical correlation is recommended Dr Tita Coburn MD [facility] (Electronically Signed) Final Date: 28 November 2019 14:12 S
== END 2019-11-27 14:54 | disposition home or self-care (01) ==
PROVIDERS: PCP Family Medicine; Visit Provider Emergency Medicine
DX: M79.604 Pain in right leg (principal); M79.605 Pain in left leg; L53.9 Erythematous condition, unspecified; L97.929 Non-pressure chronic ulcer of unspecified part of left lower leg with unspecified severity; L97.919 Non-pressure chronic ulcer of unspecified part of right lower leg with unspecified severity
CPT/HCPCS: 93923

== ENCOUNTER 2019-12-04 14:14 | Outpatient (CLI) | payer MEDICAID, SELFPAY | END 2019-12-04 14:15 | disposition home or self-care (01) | LOC: WOUND 14:14 | PROVIDERS: PCP Family Medicine; Visit Provider Emergency Medicine | DX: E11.622 Type 2 diabetes mellitus with other skin ulcer (principal); L97.822 Non-pressure chronic ulcer of other part of left lower leg with fat layer exposed | CPT/HCPCS: 11042 ==

== ENCOUNTER 2019-12-11 13:52 | Outpatient (CLI) | payer MEDICAID, SELFPAY | END 2019-12-11 13:53 | disposition home or self-care (01) | LOC: WOUND 13:53 | PROVIDERS: PCP Family Medicine; Visit Provider Emergency Medicine | DX: E11.622 Type 2 diabetes mellitus with other skin ulcer (principal); L97.828 Non-pressure chronic ulcer of other part of left lower leg with other specified severity; L97.812 Non-pressure chronic ulcer of other part of right lower leg with fat layer exposed | CPT/HCPCS: 11042; 11045; 88305 ==

== ENCOUNTER 2019-12-12 11:07 | Outpatient (CLI) | payer MEDICAID, SELFPAY ==
[2019-12-12 12:09] LABS: Basophils % 0.4 %; Eosinophils # 0.2 10^3/uL (0.0-0.8); Eosinophils % 3.4 %; Hematocrit 29.4 % (37.0-47.0); Hemoglobin 8.5 g/dL (11.5-15.3); Lymphocytes # 0.9 10^3/uL (0.8-4.8); Lymphocytes % 12.5 %; Mean Corpuscular HGB Conc 28.9 g/dL (30.0-36.0); Mean Corpuscular Hemoglobin 32.9 pg (28.0-34.0); Mean Platelet Volume 10.5 fL (7.4-10.4); Monocytes # 0.7 10^3/uL (0.2-0.9); Monocytes % 9.8 %; Neutrophils # 5.12 10^3/uL (1.8-7.7); Neutrophils % 73.6 %; Nucleated Red Blood Cells % 0 %; Platelet Count 175 10^3/cmm (130-400); Red Blood Count 2.58 10^6/uL (4.1-5.3); Red Cell Distribution Width 14.9 % (12.1-15.1)
[2019-12-12 12:30] LABS: Alanine Aminotransferase 22 U/L (0-33); Albumin Level 2.8 g/dL (3.5-5.2); Alkaline Phosphatase 313 IU/L (35-105); Anion Gap 20.1 (5-19); Aspartate Amino Transferase 18 U/L (0-32); Blood Urea Nitrogen 45 mg/dL (8-23); Calcium 6.8 mg/dL (8.5-10.5); Carbon Dioxide 25 mmol/L (22-29); Chloride 97 mmol/L (98-107); Globulin 2.9 g/dL (1.3-4.6); Glomerular Filtration Rate 7.9 mL/min (90-130); Glucose 150 mg/dL (65-115); Osmolality Calculated 285 mOsm/kg (285-295); Potassium 5.1 mmol/L (3.5-5.1); Sodium 137 mmol/L (136-145); Total Bilirubin 1.2 mg/dL (0.15-1.2); Total Protein 5.7 g/dL (6.6-8.7)
[2019-12-12] MEDS: denosumab 120 mg SDV SUBCUT (13:45)
--- NOTE | 2019-12-12 16:32 | ONC FU_ITS ---
Dr. Brady follow up note Patient: Shamika Hickman Unit #: [id number]: 1955 Dicatated By: Nathan Brady M.D.Date of Visit:Dec 12, 2019 Onc Med Follow-up/Prog Note History of Present Illness: Mrs. Shamika Hickman is a 64-year-old female who was recently diagnosed with metastatic renal cell carcinoma as per patient and medical record in 2012 she developed postmenopausal bleeding and was diagnosed with ER/AR positive endometrial carcinoma FIGO grade 1, and CT scan of abdomen showed right ovarian mass, lytic bone lesion, left renal mass and indeterminate inguinal and iliac lymphadenopathy . And then patient had some social issues she moved from [place] to [place] close to her family and recently she was evaluated by [facility] and urologist for combined cytoreductive nephrectomy and hysterectomy. In January this year she underwent left lateral lymph node biopsy and cytology was negative in late January 2018 she sustained a pathological fracture of left humerus which he was initially treated with splinting and eventually seen by Dr. Ivan and on 03/15/2018 she underwent left humerus ORIF, curettage and cementation. The pathology confirmed metastatic clear cell carcinoma and she also underwent T9 core biopsy which was also consistent with clear cell carcinoma and she has not undergone any further workup for ovarian mass. Given her evidence of metastatic involvement cytoreductive nephrectomy and hysterectomy was put on hold. Patient was referred to [facility] in [place] , on 03/22/[address] Sebastian Spencer who recommended and started her on cabozantinib 20 mg by mouth daily, and also recommended noncontrasted CT scan of chest abdomen pelvis and bone scan but patient did not go for that because of transportation issues. And CT scan of chest abdomen pelvis done on 05/12/2018 showed bilateral upper and midlung zone innumerable less than 5 mm pulmonary nodules e.g. metastatic disease versus atypical pneumonia. cabometyx was increased to 40 milligrams daily tolerated well with normal blood counts and her dose was increased to 60 mg by mouth daily on 07/28/2018 Mild cardiomegaly Left kidney superior pole 5.3 x 6.5% 0.5 cm mass No significant change in right radial mixed solid and cystic mass with calcifications Mild bilateral inguinal lymphadenopathy. Bone scan done on 05/12/2018 showed right sixth rib, distal sternum and left humerus metastatic disease status post left humerus fracture with internal fixation Chronic renal failure on hemodialysis MRI of the head without contrast from 07/14/2017 reported T2 hyperintense soft tissue nodule involving the right parietal occipital calvarium. This involves the inner outer tables with extension into the scalp. This lesion measures approximately 1.5 x 1.6 x 1.8 cm suspicious for metastatic disease. No other visualized calvarial lesions. Mild small vessel changes with moderate parenchymal volume loss. Partial opacification mastoid air cells bilaterally. Single punctuate focus of hemosiderin in the left frontal white matter. No other significant findings. Referred to radiology for CT-guided biopsy of scalp mass Which confirmed clear cell carcinoma Underwent excision of this mass on 09/22/2018 final pathology report showed metastatic clear cell carcinoma .Follow-up CT scan of chest abdomen pelvis done on 12/22/2018 showed resolved previously widespread nodularity of lung parenchyma since 05/12/2018 Stable parenchymal scarring left upper and lower lobes Improvement in the previous bilateral axillary lymphadenopathy Lytic bony metastatic disease with mixed therapeutic response. Decrease in bulk of previous upper pole left renal mass Progressive lytic metastatic disease of L2 vertebra and new lytic lesion of right L4 transverse process. Marginal increase in size of right ovarian mass Improvement in previous mild bilateral inguinal lymphadenopathy CT scan of head done on 12/30/2018 showed no evidence of intracranial hemorrhage or mass effect right partial craniotomy with mesh cranioplasty. Patient was referred to [facility] onc[facility] in [place] where she saw Dr. Otoole on 01/25/2019 and as per her evaluation she is recommended Femara 2.5 mg by mouth daily for her newly diagnosed endometrial cancer and also wants to review and discuss regarding timing of surgery. Patient had episode of TIA on 03/05/2019 for which she was admitted to hospital and CT scan of head was done on 03/05/2019 which showed no evidence of brain metastases or any acute changes. Patient presented with difficulty in speech and confusion but during hospital stay she improved no TPA was considered because of history of renal cell carcinoma with brain metastases She continues with the cabometyx for the renal cancer and Femara for the endometrial cancer.And on monthly Xgeva. Episode of diarrhea which improved with holding off cabometyx but patient said she started taking 40 mg daily for 2 days then gone up to schedule dose 60 mg daily 3 days ago now tolerating well with mild diarrhea, which is improving. Follow-up CT scan of chest abdomen pelvis done on 09/05/2019 showed, new multilobar groundglass opacification and is single 7 mm nodule in the left lower lobe since 12/22/2018 may present pneumonitis, Hilar, mediastinal and left exited lymph node is a very minimally greater than size than on previous study could be reactive or neoplastic X Right adnexal mass slight decrease in size as compared to 12/22/2018 Mixed lytic lesions within the right ribs, thoracic and lumbar spine these were all present on prior study within no progression No increase in size of renal mass. Stable inguinal/iliac chain lymph nodes tolerating cabometyx and Femara well Came for follow-up, denies any specific complaint except generalized weakness and fatigue but otherwise no fever chills no nausea or vomiting no hemoptysis or hematemesis, tolerating hemodialysis 3 times a day week reasonably well but patient is also in some social/financial issues causing mental stress. Otherwise tolerating cabometyx/Femara well Medications: AmLODIPine Besylate 1 (10 mg) Tablet Oral daily, Calcium Acetate (Phos Binder) 2 Capsule (of 667 mg) Tablet Oral t.i.d., carbometyx 60 mg (of 20 mg) Tablet Oral daily, D-1000 1 Tablet (of 1000 Units) Oral daily, Furosemide 1 Tablet (of 40 mg) Oral daily, HumaLOG Subcutaneous, HydrALAZINE HCl 1 (25 mg) Tablet Oral four times a day, MetOLazone 1 Tablet (of 5 mg) Oral b.i.d., Metoprolol Tartrate 1 (25 mg) Tablet Oral b.i.d., PROzac 1 Capsule (of 20 mg) Oral daily, Senna-Plus 2 (8.6-50 mg) Tablet Oral b.i.d., Simvastatin 1 (40 mg) Tablet Oral at bedtime, Sodium Bicarbonate 1 Tablet (of 650 mg) Oral daily Allergies: No Known Allergies. Review of Systems: Constitutional - Appetite is good and weight is stable. No fever, chills, or night sweats. Positive for hot flashes. Energy level is poor, ENMT - No sinus congestion/drainage. No mouth sores. Negative for sore throat and difficulty swallowing, Hematologic/Lymphatic - Positive for easy bruising, Respiratory - No shortness of breath. No cough. No pleuritic pain or hemoptysis, Cardiovascular - No angina pain. No palpitations, Gastrointestinal - Occasional Nausea, no vomiting. No heartburn or acid reflux. No diarrhea or constipation. No blood in the stool or black stools, Genitourinary (F) - Occasional hematuria. No urinary frequency. No urgency or incontinence. Pt continues to receive dialysis, Musculoskeletal - No joint or bone pain, Neurologic - Pt reports occasional headaches, Psychiatric - Occasional bouts of anxiety/depression. No insomnia. Vital Signs: Performed on Dec 12, 2019 13:07 Height - 62.00 in Weight - 169.6 lbs (HIGH) BSA - 1.78 sq.m BMI - 31.02 (HIGH) Temperature - 97.5 F (LOW) Pulse - 81 /min Respiration - 24 /min BP - 175/59 mm(hg) (HIGH) O2 Sat - 100 % Pain - 10 Performance Status: 1 - No physically strenuous activity, but ambulatory and able to carry out light or sedentary work (e.g. office work, light house work). (ECOG) Physical Examination: ENMT - No mouth sores, no thrush, Respiratory - Lungs are clear, Cardiovascular - Regular rate and rhythm of heart, Abdomen - Soft, bowel sounds, Extremities - 1+ edema bilaterally. Lab/Imaging: Test performed on September 08, 2019 11:00 Sodium 138 mmol/L Potassium 4.8 mmol/L Chloride 99 mmol/L CO2 22 mmol/L Anion Gap 21.8 BUN 32 mg/dL Creatinine 5.5 mg/dL Cr Clearance (Est) 13.3200 mL/min eGFR 7.9 mL/min Glucose 160 mg/dL Calcium 7.9 mg/dL Protein, Total 5.6 g/dL Albumin 3.2 g/dL Globulin 2.4 g/dL Bilirubin, Total 0.2 mg/dL ALT (SGPT) 37 U/L AST (SGOT) 53 U/L Alkaline Phosphatase 139 IU/L WBC 5.8 10 3/uL RBC 2.74 10 6/uL HGB 8.8 g/dL HCT 29.7 % MCV 108.4 fL MCH 32.1 pg MCHC 29.6 g/dL RDW 15.5 % Platelet Count 184 10 3/cmm MPV 10.9 fL Neutrophils 4.4 10 3/uL Lymphocytes 0.6 10 3/uL Monocytes 0.5 10 3/uL Eosinophils 0.3 10 3/uL Basophils 0.0 10 3/uL Neutrophil % 75.1 % Lymphocyte % 9.8 % Monocyte % 9.3 % Eosinophil % 4.6 % Basophils % 0.3 % Impression: Metastatic renal cell carcinoma with left humerus involvement status post left humeral fracture status post ORIF in February 2018 and T9, confirmed with biopsy On cabometyx 40 mg by mouth daily Grade 1 endometrial carcinoma further treatment e.g. hysterectomy is on hold because of recently diagnosed metastatic renal cell carcinoma. Now on Femara 2.5 mg daily Ovarian mass of unknown etiology, oophorectomy is on hold because of above-mentioned issue. History of pulmonary hypertension History of chronic renal disease .On hemodialysis now CT scan of chest abdomen pelvis done on 05/12/2018 showed bilateral upper and mid lung zone innumerable less than 5 mm pulmonary nodules metastatic disease versus atypical pneumonia Multiple osseous metastatic disease potential involvement of T9 Bilateral axillary lymphadenopathy may be reactive due to edema or metastatic disease cannot be excluded. Left kidney is. Pole 5.3 x 6.5 x 7.5 No significant change in right ovarian mixed solid and cystic mass with calcification malignant ovarian neoplasm within the differential .Bone scan done on 05/12/2018 showed increase uptake in right lateral sixth rib, distal sternum, left humerus and status post fixation pathological fracture left humerus, increasing uptake throughout the largest portion of left humerus MRI of the head without contrast from 07/14/2017 reported T2 hyperintense soft tissue nodule involving the right parietal occipital calvarium. This involves the inner outer tables with extension into the scalp. This lesion measures approximately 1.5 x 1.6 x 1.8 cm suspicious for metastatic disease. No other visualized calvarial lesions. Mild small vessel changes with moderate parenchymal volume loss. Partial opacification mastoid air cells bilaterally. Single punctuate focus of hemosiderin in the left frontal white matter. No other significant findings. Underwent excisional biopsy on 09/22/2018 showed metastatic clear cell carcinoma. Plan: Discussed with patient regarding her labs white blood count 7 hemoglobin 8.5 hematocrit 29.4 platelets under 75,000 CMP within normal limits except creatinine 5.5 albumin 2.8 and alk phos 313 Clinically, patient doing reasonably well with no new signs symptoms tolerating palliative therapy with Cabometyx well. Patient did not get follow-up CT scan of chest abdomen pelvis done, we will reschedule her prior to her next visit. In the meantime she will continue with cabometyx and Femara for endometrial carcinoma and we will give her her 3 monthly dose of Xgeva today and then she will return to clinic in 3 months CBC CMP and with follow-up CT scan of chest abdomen pelvis. As far as moderate anemia is concerned, multifactorial now being managed by nephrology, will consider blood transfusion if hemoglobin drops below 8 g. Signed By: Nathan Brady M.D. <<Signature on File>>
== END 2019-12-12 11:08 | disposition home or self-care (01) ==
LOC: ONCMED 11:25
PROVIDERS: PCP Family Medicine; Visit Provider Internal Medicine Hematology & Oncology
DX: C54.1 Malignant neoplasm of endometrium (principal); C64.2 Malignant neoplasm of left kidney, except renal pelvis; C79.51 Secondary malignant neoplasm of bone; N28.89 Other specified disorders of kidney and ureter; I27.20 Pulmonary hypertension, unspecified; N18.9 Chronic kidney disease, unspecified; Z99.2 Dependence on renal dialysis; D64.9 Anemia, unspecified
CPT/HCPCS: 80053; 85025; 96372; 99214; J0897

== ENCOUNTER 2019-12-18 13:47 | Outpatient (CLI) | payer MEDICAID, SELFPAY | END 2019-12-18 13:48 | disposition home or self-care (01) | LOC: WOUND 13:49 | PROVIDERS: PCP Family Medicine; Visit Provider Emergency Medicine | DX: E11.622 Type 2 diabetes mellitus with other skin ulcer (principal); L97.828 Non-pressure chronic ulcer of other part of left lower leg with other specified severity; L97.811 Non-pressure chronic ulcer of other part of right lower leg limited to breakdown of skin | CPT/HCPCS: 11042; 11045 ==

== ENCOUNTER 2019-12-25 13:57 | Outpatient (CLI) | payer MEDICAID, SELFPAY | END 2019-12-25 13:58 | disposition home or self-care (01) | LOC: WOUND 13:57 | PROVIDERS: PCP Family Medicine; Visit Provider Emergency Medicine | DX: E11.622 Type 2 diabetes mellitus with other skin ulcer (principal); L97.822 Non-pressure chronic ulcer of other part of left lower leg with fat layer exposed; L97.812 Non-pressure chronic ulcer of other part of right lower leg with fat layer exposed | CPT/HCPCS: 11042; 11045 ==

== ENCOUNTER 2020-01-10 13:40 | Outpatient (CLI) | payer MEDICAID, SELFPAY | END 2020-01-10 13:41 | disposition home or self-care (01) | LOC: WOUND 13:41 | PROVIDERS: PCP Family Medicine; Visit Provider Emergency Medicine | DX: E11.622 Type 2 diabetes mellitus with other skin ulcer (principal); L97.822 Non-pressure chronic ulcer of other part of left lower leg with fat layer exposed; L97.812 Non-pressure chronic ulcer of other part of right lower leg with fat layer exposed | CPT/HCPCS: 11042; 11045 ==

== ENCOUNTER 2020-01-18 15:04 | Outpatient (CLI) | payer MEDICAID, SELFPAY | END 2020-01-18 15:05 | disposition home or self-care (01) | LOC: WOUND 15:05 | PROVIDERS: PCP Family Medicine; Visit Provider Nurse Practitioner Family | DX: E11.622 Type 2 diabetes mellitus with other skin ulcer (principal); L97.822 Non-pressure chronic ulcer of other part of left lower leg with fat layer exposed; L97.812 Non-pressure chronic ulcer of other part of right lower leg with fat layer exposed | CPT/HCPCS: 11042; 11045 ==

== ENCOUNTER 2020-01-21 14:23 | Emergency (ER) | payer MEDICAID, SELFPAY ==
[2020-01-21 15:45] VITALS: PULSE 80; RESP 18; TEMP 36.4; O2SAT 98; BMI 28.3
--- NOTE | 2020-01-21 15:59 | W.ED.RECABL ---
HPI - Recheck/Abnormal Lab/Rx General: Chief Complaint: Recheck/Abnormal Lab/Rx Stated Complaint: chronic pain/wants meds Time Seen by Provider: 01/21/20 15:40 History of Present Illness: HPI narrative: Patient complains about chronic leg pain says she is around her pain medicine needs more pain medicine Review of Systems Const: Denies: fever(s), chills or body aches Eyes: Denies: change in vision or blurry vision ENMT: Denies: throat pain or nasal congestion Card: Denies: chest pain or dyspnea on exertion Resp: Denies: dyspnea, productive cough or non-productive cough GI: Denies: abdominal pain, nausea or vomiting Musc: Reports: extremity pain (Chronic out of pain medicine) Skin/Breast: Denies: rash Neuro: Denies: headache(s) Psych: Denies: anxiety or depression Yang/Lymph: Denies: easy bruising PFSH ED PFSH: Medical History (Updated 01/21/20 @ 15:58 by SHANE Bhat) End stage renal disease Lower extremity edema Lower extremity ulceration Metastatic renal cell carcinoma Pathological fracture Pulmonary hypertension TIA (transient ischemic attack) Uterine cancer Social History Smoking and tobacco status: never smoked Current occupation: Disability Physical Exam Const: COMMON NORMALS: no acute distress (Asking for more pain medicine for her legs) Extremity: OTHER: Leg wounds no erythema noted Psych: COMMON NORMALS: mental status grossly normal Course Vital Signs: Vital signs: Vital Signs Temperature 97.5 F L 01/21/20 15:45 Pulse Rate 80 01/21/20 15:45 Respiratory Rate 18 01/21/20 15:45 Pulse Oximetry 98 01/21/20 15:45 Discharge Plan Discharge Patient Disposition: Home Clinical Impression: Chronic pain Qualifiers: Chronic pain type: other chronic pain Qualified Code(s): G89.29 - Other chronic pain Condition: Stable Prescriptions: New hydrocodone-acetaminophen 5-325 mg tablet 1 tab PO DAILY Qty: 1 RF: 0 No Action furosemide [Lasix] 40 mg tablet 40 mg PO QAM Qty: 30 RF: 3 albuterol sulfate 90 mcg/actuation HFA aerosol inhaler 2 inh INHALATION Q6H Qty: 8.5 RF: 1 metolazone 5 mg Tablet 5 mg PO DAILY RF: 0 hydralazine 25 mg Tablet 25 mg PO TID RF: 0 simvastatin 40 mg Tablet 40 mg PO DAILY RF: 0 amlodipine 10 mg Tablet 10 mg PO DAILY RF: 0 Stool Softener 100 mg Capsule 100 mg PO DAILY PRN (Reason: Constipation) RF: 0 letrozole 2.5 mg Tablet 2.5 mg PO DAILY RF: 0 Prozac 20 mg Capsule 20 mg PO DAILY RF: 0 metoprolol tartrate 25 mg Tablet 25 mg PO BID RF: 0 Vitamin D2 1,250 mcg (50,000 unit) Capsule 50,000 unit PO Q7D Qty: 5 RF: 0 calcitriol 0.25 mcg Capsule 0.25 mcg PO DAILY Qty: 30 RF: 0 Discharge Orders: Discharge Order (Routine); Ordered 01/21/20 Ordered By: Carl Nicholson Referrals: Ariel Del Castillo MD [Primary Care Provider] - Discharge Diet: Usual diet Discharge Activity: Increase activity as tolerated Patient Instructions: Chronic Pain (ED) Activity Restrictions/Additional Instructions: Your chronic pain management tomorrow to see about getting your pain medicine refilled Coding Level of Care Code ED Political Science Faculty Member for Andrea Malcolm
[2020-01-21] MEDS: HYDROcodone-acetaminophen 5-325 mg Tablet 1 TAB PO (16:05)
[2020-01-21 16:08] VITALS: BP 174/81
== END 2020-01-21 16:17 | disposition home or self-care (01) ==
PROVIDERS: Emergency Provider Nurse Practitioner Family; PCP Family Medicine
DX: G89.29 Other chronic pain (principal); Z85.528 Personal history of other malignant neoplasm of kidney; Z86.73 Personal history of transient ischemic attack (TIA), and cerebral infarction without residual deficits; Z85.42 Personal history of malignant neoplasm of other parts of uterus
CPT/HCPCS: 12345; 99281; 99282

== ENCOUNTER 2020-01-27 17:29 | Inpatient (IN) | payer MEDICAID, SELFPAY ==
[2020-01-27] VITALS (7 sets, daily range): BP systolic 106–153; BP diastolic 49–88; PULSE 82–89; RESP 18–21; TEMP 36.3–36.6; O2SAT 86–97; BMI 28.3
--- NOTE | 2020-01-27 17:49 | ED_ITS ---
Documented by User: Toan Zafar DO 01/30/20 07:55 HPI - Wound/Laceration General: Chief Complaint: Wound/Laceration Stated Complaint: leg pain Time Seen by Provider: 01/27/20 17:31 History of Present Illness: HPI narrative: 64-year-old female presents the emergency room via EMS from home. She has wounds to her lower legs that she is actually scheduled to see Dr. Nathan for what she tells me is debridement of the wounds and surgery on this coming Wednesday in 3 days. She is in end-stage renal disease patients gets hemodialysis 3 days a week. She missed her third hemodialysis run of the week yesterday when she states her transportation fell through. EMS told me after initially seen the patient that the home health care nurse was concerned about some swelling and redness in the groin and under the pannus they had not looked at patient had been no reference to it when I was talking to her but complained of abdominal pain and had left lower quadrant abdominal pain on exam. When I went back to the room and reexamined her including checking under her pannus it became obvious that the abdominal pain was translated pain from the raw skin. She has excoriated skin with serous drainage underneath the pannus extending from one hip to the other down into the groin folds this the mons and into the upper portion of the labia's majora. It is red and inflamed there is no purulent drainage there are some ulcerated areas with mucousy eschars on the shallow ulcers. Patient also is on scheduled narcotics for chronic pain. Onset (ago): day(s) Location: abdomen (Pannus) and genitals Place: home Associated symptoms: Reports pain; Denies chills, fever(s), foreign body sensation, inability to move, nausea, numbness, syncope or vomiting Review of Systems Const: Denies: fever(s) or chills Card: Denies: syncope Resp: Denies: dyspnea, productive cough or non-productive cough GI: Denies: nausea or vomiting : Denies: flank pain, difficulty voiding, dysuria, urinary frequency or urinary urgency [facility] ED PFSH: Medical History Anemia Depression End stage renal disease HD MWF Endometrial carcinoma Has not had hysterectomy due to comorbid issues. On Femara. Hyperlipidemia Hypertension Metastatic renal cell carcinoma Left kidney, metastatic disease left humerus, spine, right occiput, sternum/rib. On Carometyx. Ovarian mass not evaluated for malignancy due to comorbid issues Pulmonary hypertension TIA (transient ischemic attack) Surgical History History of arteriovenostomy for renal dialysis History of biopsy multiple sites History of craniotomy (~08/2018) right partial craniotomy with mesh cranioplasty History of hernia repair History of surgery on upper extremity ORIF left pathological humerus fracture Vascular dialysis catheter in place Family History Father , age 70 Cancer Mother , age 80 Aneurysm Social History Smoking and tobacco status: never smoked Alcohol intake: never Household members: family Current occupation: Disability Physical Exam Const: COMMON NORMALS: no acute distress GENERAL APPEARANCE: cooperative and comfortable ORIENTATION/CONSCIOUSNESS: Yes awake, Yes oriented to person, Yes oriented to place and Yes oriented to time HENMT: COMMON NORMALS: normocephalic, atraumatic and hearing grossly normal bilaterally HEAD & SCALP: normocephalic and atraumatic Eye: COMMON NORMALS: Equal, round and reactive pupils present, EOMs intact bilaterally, conjunctivae normal and no scleral icterus CONJUNCTIVA: Yes conjunctivae normal PUPIL: Yes Equal, round and reactive pupils present Neck/C-Spine: COMMON NORMALS: no JVD Resp: COMMON NORMALS: normal respiratory effort, No retractions, No use of accessory muscles and clear to auscultation bilaterally AUSCULTATION: clear to auscultation bilaterally Cardio: COMMON NORMALS: no JVD, regular rate, regular rhythm and No murmurs present (Cardio) RATE: regular rate RHYTHM: regular rhythm GI: COMMON NORMALS: Soft to palpation and No hepatosplenomegaly present AUSCULTATION: Yes normoactive bowel sounds PALPATION: Yes Soft to palpation, No Tenderness to palpation present (GI), No Guarding due to palpation present (GI) and Yes No hepatosplenomegaly present Extremity: NARRATIVE EXTREMITY EXAM: Dry crusted eschars present on bilateral lower extremities on the lateral portion at the distal third. Localized minimal erythema at the edges no active drainage no sign of infection. Neuro: SENSORIUM/ORIENTATION: Yes oriented to person, Yes oriented to place and Yes oriented to time Skin: OTHER: Beneath the pannus extending from one hip to the other there is extreme excoriation and denudation of the superficial dermis. There is exudative drainage with no purulence there are some shallow ulcers with a mucousy base no evidence of abscess. The excoriation extends down into the superior portion of the labia in the groin folds. Course Vital Signs: Vital signs: Vital Signs Temperature 98.2 F 01/29/20 12:15 Pulse Rate 67 01/29/20 12:15 Respiratory Rate 19 H 01/29/20 15:14 Blood Pressure 96/71 01/29/20 12:15 Pulse Oximetry 98 01/29/20 12:15 MDM - Wound/Laceration MDM Narrative: Medical decision making narrative: Care turnedCare turned over to Dr. Reese at change of shift. Please see his notes for definitive diagnosis and disposition. Lab Data: Labs: Lab Results 01/27/20 01/27/20 01/27/20 Range/Units 18:10 18:10 19:38 WBC 11.0 H (4.0-10.0) 10^3/ uL RBC 2.49 L (4.1-5.3) 10^6/u L Hgb 7.8 L (11.5-15.3) g/dL Hct 26.7 L (37.0-47.0) % MCV 107.2 H (81-99) fL MCH 31.3 (28.0-34.0) pg MCHC 29.2 L (30.0-36.0) g/dL RDW 17.1 H (12.1-15.1) % Plt Count 134 (130-400) 10^3/c mm MPV 11.7 H (7.4-10.4) fL Neut % (Auto) 87.8 % Lymph % (Auto) 3.5 % [place] % (Auto) 7.6 % Eos % (Auto) 0.5 % Baso % (Auto) 0.2 % Neut # (Auto) 9.65 H (1.8-7.7) 10^3/u L Lymph # (Auto) 0.4 L (0.8-4.8) 10^3/u L [place] # (Auto) 0.8 (0.2-0.9) 10^3/u L Eos # (Auto) 0.1 (0.0-0.8) 10^3/u L Baso # (Auto) 0.0 (0.0-0.1) 10^3/u L Nucleated RBC % (a uto) 0 % Nucleated RBCs # 0.0 /100WBC Sodium 139 (136-145) mmol/L Potassium 4.4 (3.5-5.1) mmol/L Chloride 97 L (98-107) mmol/L Carbon Dioxide 14 L (22-29) mmol/L Anion Gap 32.4 H (5-19) BUN 67 H (8-23) mg/dL Creatinine 5.8 H* (0.5-0.9) mg/dL GFR Calculation 7.4 L (90-130) mL/min Glucose 135 H (65-115) mg/dL Calculated Osmolal ity 309 H (285-295) mOsm/k g Calcium 7.0 L (8.5-10.5) mg/dL Total Bilirubin 0.4 (0.15-1.2) mg/dL AST 19 (0-32) U/L ALT 22 (0-33) U/L Alkaline Phosphata se 101 (35-105) IU/L Total Protein 5.7 L (6.6-8.7) g/dL Albumin 2.9 L (3.5-5.2) g/dL Globulin 2.8 (1.3-4.6) g/dL Urine Color Yellow (Yellow) Urine Appearance Hazy A (CLEAR) Urine pH 5 (5-7) Ur Specific Gravit y 1.015 (1.005-1.030) Urine Protein 3+ H (Negative) Urine Glucose (UA) 1+ (Normal) Urine Ketones Negative (Negative) Urine Blood 2+ H (Negative) Urine Nitrate Negative (Negative) Urine Bilirubin Neg (Negative) Urine Urobilinogen Norm (Negative) mg/dL Ur Leukocyte Lae ase Negative (Negative) Urine RBC 0-4 H (0-2) /hpf Urine WBC None (0-5) /hpf Ur Squamous Epith Cells 0-4 H (0-5) /hpf Amorphous Sediment 1+ /hpf Urine Bacteria 1+ H (NONE) /hpf Discharge Plan Discharge Admit Provider: Bettie Roberts Discharge Date/Time: 01/27/20 21:41 Probable Cause of Probable cause of : Cardiac arrest Coding Level of Care Code ED Attending Radiologist for Chg Fwd Exam Detailed Documented by User: Praful Reese DO 01/27/20 21:01 HPI - Wound/Laceration General: Chief Complaint: Wound/Laceration Stated Complaint: leg pain Time Seen by Provider: 01/27/20 17:31 PFSH ED PFSH: Medical History Anemia Depression End stage renal disease HD MWF Endometrial carcinoma Has not had hysterectomy due to comorbid issues. On Femara. Hyperlipidemia Hypertension Metastatic renal cell carcinoma Left kidney, metastatic disease left humerus, spine, right occiput, sternum/rib. On Carometyx. Ovarian mass not evaluated for malignancy due to comorbid issues Pulmonary hypertension TIA (transient ischemic attack) Surgical History History of arteriovenostomy for renal dialysis History of biopsy multiple sites History of craniotomy (~08/2018) right partial craniotomy with mesh cranioplasty History of hernia repair History of surgery on upper extremity ORIF left pathological humerus fracture Vascular dialysis catheter in place Family History Father , age 70 Cancer Mother , age 80 Aneurysm Social History Smoking and tobacco status: never smoked Alcohol intake: never Household members: family Current occupation: Disability Course Consultations: Consultation #1: terry Vital Signs: Vital signs: Vital Signs Temperature 98.2 F 01/29/20 12:15 Pulse Rate 67 01/29/20 12:15 Respiratory Rate 19 H 01/29/20 15:14 Blood Pressure 96/71 01/29/20 12:15 Pulse Oximetry 98 01/29/20 12:15 MDM - Wound/Laceration MDM Narrative: Medical decision making narrative: 64-year-old lady with multiple medical problems including end-stage renal disease on dialysis, which she missed yesterday. She presents with abdominal pain. Her pain is really r elated to fulminant candidal panniculitis it is hard to even examine it is so painful. Her creatinine is 5.8. Her bicarbonate level was 14. She is receiving some IV fluids, although judiciously due to her end-stage renal disease. She will come in for dressing changes, IV Diflucan, and further wound care as well as dialysis. Lab Data: Labs: Lab Results 01/27/20 01/27/20 01/27/20 Range/Units 18:10 18:10 19:38 WBC 11.0 H (4.0-10.0) 10^3/ uL RBC 2.49 L (4.1-5.3) 10^6/u L Hgb 7.8 L (11.5-15.3) g/dL Hct 26.7 L (37.0-47.0) % MCV 107.2 H (81-99) fL MCH 31.3 (28.0-34.0) pg MCHC 29.2 L (30.0-36.0) g/dL RDW 17.1 H (12.1-15.1) % Plt Count 134 (130-400) 10^3/c mm MPV 11.7 H (7.4-10.4) fL Neut % (Auto) 87.8 % Lymph % (Auto) 3.5 % [place] % (Auto) 7.6 % Eos % (Auto) 0.5 % Baso % (Auto) 0.2 % Neut # (Auto) 9.65 H (1.8-7.7) 10^3/u L Lymph # (Auto) 0.4 L (0.8-4.8) 10^3/u L [place] # (Auto) 0.8 (0.2-0.9) 10^3/u L Eos # (Auto) 0.1 (0.0-0.8) 10^3/u L Baso # (Auto) 0.0 (0.0-0.1) 10^3/u L Nucleated RBC % (a uto) 0 % Nucleated RBCs # 0.0 /100WBC Sodium 139 (136-145) mmol/L Potassium 4.4 (3.5-5.1) mmol/L Chloride 97 L (98-107) mmol/L Carbon Dioxide 14 L (22-29) mmol/L Anion Gap 32.4 H (5-19) BUN 67 H (8-23) mg/dL Creatinine 5.8 H* (0.5-0.9) mg/dL GFR Calculation 7.4 L (90-130) mL/min Glucose 135 H (65-115) mg/dL Calculated Osmolal ity 309 H (285-295) mOsm/k g Calcium 7.0 L (8.5-10.5) mg/dL Total Bilirubin 0.4 (0.15-1.2) mg/dL AST 19 (0-32) U/L ALT 22 (0-33) U/L Alkaline Phosphata se 101 (35-105) IU/L Total Protein 5.7 L (6.6-8.7) g/dL Albumin 2.9 L (3.5-5.2) g/dL Globulin 2.8 (1.3-4.6) g/dL Urine Color Yellow (Yellow) Urine Appearance Hazy A (CLEAR) Urine pH 5 (5-7) Ur Specific Gravit y 1.015 (1.005-1.030) Urine Protein 3+ H (Negative) Urine Glucose (UA) 1+ (Normal) Urine Ketones Negative (Negative) Urine Blood 2+ H (Negative) Urine Nitrate Negative (Negative) Urine Bilirubin Neg (Negative) Urine Urobilinogen Norm (Negative) mg/dL Ur Leukocyte Lea ase Negative (Negative) Urine RBC 0-4 H (0-2) /hpf Urine WBC None (0-5) /hpf Ur Squamous Epith Cells 0-4 H (0-5) /hpf Amorphous Sediment 1+ /hpf Urine Bacteria 1+ H (NONE) /hpf Discharge Plan Discharge Admit Provider: Bettie Roberts Discharge Date/Time: 01/27/20 21:41 Probable Cause of Probable cause of : Cardiac arrest Coding Level of Care Code ED Attending Radiologist for g Fwd Exam Detailed
[2020-01-27 18:17] LABS: Basophils % 0.2 %; Eosinophils # 0.1 10^3/uL (0.0-0.8); Eosinophils % 0.5 %; Hematocrit 26.7 % (37.0-47.0); Hemoglobin 7.8 g/dL (11.5-15.3); Lymphocytes # 0.4 10^3/uL (0.8-4.8); Lymphocytes % 3.5 %; Mean Corpuscular HGB Conc 29.2 g/dL (30.0-36.0); Mean Corpuscular Hemoglobin 31.3 pg (28.0-34.0); Mean Corpuscular Volume 107.2 fL (81-99); Mean Platelet Volume 11.7 fL (7.4-10.4); Monocytes # 0.8 10^3/uL (0.2-0.9); Monocytes % 7.6 %; Neutrophils # 9.65 10^3/uL (1.8-7.7); Neutrophils % 87.8 %; Nucleated Red Blood Cells % 0 %; Platelet Count 134 10^3/cmm (130-400); Red Blood Count 2.49 10^6/uL (4.1-5.3); Red Cell Distribution Width 17.1 % (12.1-15.1)
[2020-01-27 18:38] LABS: Alanine Aminotransferase 22 U/L (0-33); Albumin Level 2.9 g/dL (3.5-5.2); Alkaline Phosphatase 101 IU/L (35-105); Anion Gap 32.4 (5-19); Aspartate Amino Transferase 19 U/L (0-32); Blood Urea Nitrogen 67 mg/dL (8-23); Carbon Dioxide 14 mmol/L (22-29); Chloride 97 mmol/L (98-107); Globulin 2.8 g/dL (1.3-4.6); Glomerular Filtration Rate 7.4 mL/min (90-130); Glucose 135 mg/dL (65-115); Osmolality Calculated 309 mOsm/kg (285-295); Potassium 4.4 mmol/L (3.5-5.1); Sodium 139 mmol/L (136-145); Total Bilirubin 0.4 mg/dL (0.15-1.2); Total Protein 5.7 g/dL (6.6-8.7)
[2020-01-27] MEDS: morphine 4 mg/mL SDV 1 mL IVP ×2 (19:25→22:30)
[2020-01-27] MEDS: ondansetron 2 mg/ML SDV 2 mL 4 MG IVP (19:26)
[2020-01-27] MEDS: fluconazole premix 100 MG in empty flexible container 1 EACH 50 MG IV (20:27)
--- NOTE | 2020-01-27 20:39 | P.HP_ITS ---
Providers/Chief Complaint Primary Care Provider: Ariel Del Castillo MD Chief Complaint: leg pain History of Present Illness Shamika Hickman is a 64 year old female who presented to the emergency room with increased pain in her lower abdomen. She is a chronic dialysis patient who missed her dialysis yesterday due to transportation issues. She has been followed in wound care clinic for ulcerations to both lower extremities. These wounds have extensive eschar formation and has been recommended that surgical debridement be considered. She has missed at least one appointment set up to try to get this in process. She had vascular ultrasounds done that showed possibility of severe peripheral arterial disease but the study was technically difficult. She has a history of both metastatic renal cell carcinoma and grade 1 endometrial carcinoma. She is currently on Femara and Cabometyx orally according to oncology notes. We do not have a definitive accurate her medication list at the moment. Evaluation in the emergency room revealed extensive skin findings in the lower abdomen/pannus. Lower extremity wounds also noted to potentially be progressing from described appearance at wound care clinic. She is being admitted for initiation of antibiotics for multiple skin abnormalities as well as necessary management for missing dialysis. Her primary complaint is severe pain along the lower abdomen. She states that this is deve loped over the last week or 2 but more acutely over the last couple of days. Pain is severe in nature. Review of Systems Const: Denies: fever(s), chills or change in appetite Eyes: Denies: change in vision ENMT: Denies: throat pain, dry mouth or nasal congestion Card: Reports: edema, dyspnea on exertion and orthopnea; Denies: chest pain or palpitations Resp: Denies: productive cough, non-productive cough, wheezing or pain on inspiration GI: Reports: abdominal pain and diarrhea (Small-volume loose stools); Denies: nausea, vomiting, constipation, hematochezia or melena : Reports: other (Does not make much urine at baseline) Musc: Reports: back pain, extremity pain, muscle cramps and muscle weakness Skin/Breast: Reports: rash, erythema, skin pain, skin tenderness, skin swelling, sores, non-healing lesions and lesions Neuro: Denies: headache(s), numbness in extremities, weakness in extremities or dizziness Psych: Reports: depression; Denies: anxiety Yang/Lymph: Reports: easy bruising; Denies: easy bleeding Medications/Allergies Home Medications Medication Instructions Recorded Confirmed Last Taken Type Prozac 20 mg PO DAILY 07/07/19 12/05/19 Unknown History Stool Softener 100 mg PO DAILY PRN 07/07/19 12/05/19 Unknown History amlodipine 10 mg PO DAILY 07/07/19 12/05/19 Unknown History hydralazine 25 mg PO TID 07/07/19 12/05/19 Unknown History letrozole 2.5 mg PO DAILY 07/07/19 12/05/19 Unknown History metolazone 5 mg PO DAILY 07/07/19 12/05/19 Unknown History metoprolol tartrate 25 mg PO BID 07/07/19 12/05/19 Unknown History simvastatin 40 mg PO DAILY 07/07/19 12/05/19 Unknown History calcitriol 0.25 mcg PO DAILY #30 cap 07/08/19 12/05/19 Unknown Rx ergocalciferol (vitamin D2) 50,000 unit PO Q7D #5 cap 07/08/19 12/05/19 Unknown Rx [Vitamin D2] albuterol sulfate 2 inh INHALATION Q6H #8.5 gm 10/12/19 12/05/19 Unknown Rx furosemide 40 mg tablet 40 mg PO QAM #30 tab 12/05/19 12/05/19 Unknown Rx hydrocodone-acetaminophen 1 tab PO DAILY #1 tab 01/21/20 Unknown Rx Allergies Allergy/AdvReac Type Severity Reaction Status Date / Time No Known Allergies Allergy Unknown Verified 12/05/19 14:05 PFSH Acute PFSH: Medical History (Updated 01/27/20 @ 23:36 by Bettie Roberts MD) Anemia Depression End stage renal disease HD MWF Endometrial carcinoma Has not had hysterectomy due to comorbid issues. On Femara. Hyperlipidemia Hypertension Metastatic renal cell carcinoma Left kidney, metastatic disease left humerus, spine, right occiput, sternum/rib. On Carometyx. Ovarian mass not evaluated for malignancy due to comorbid issues Pulmonary hypertension TIA (transient ischemic attack) Surgical History (Updated 01/27/20 @ 23:21 by Bettie Roberts MD) History of arteriovenostomy for renal dialysis History of biopsy multiple sites History of craniotomy (~08/2018) right partial craniotomy with mesh cranioplasty History of hernia repair History of surgery on upper extremity ORIF left pathological humerus fracture Vascular dialysis catheter in place Family History (Updated 01/28/20 @ 00:15 by Bettie Roberts MD) Father , age 70 Cancer Mother , age 80 Aneurysm Social History (Updated 01/28/20 @ 00:15 by Bettie Roberts MD) Smoking and tobacco status: never smoked Alcohol intake: never Substance/Drug Use: never Household members: family Current occupation: Disability Vitals/I&O/Wt Last Vital Signs Temp 98 F 01/27/20 17:30 Pulse 83 01/27/20 20:21 Resp 18 01/27/20 20:21 BP 106/49 01/27/20 20:21 Pulse Ox 97 01/27/20 20:21 Weight last 48 hrs Weight 72.575 kg Physical Exam Const: OTHER: Alert, oriented x3, cooperative, looks significantly uncomfortable from pain related to skin wounds and pannicular area HENMT: OTHER: Normocephalic atraumatic, moist mucus membranes Eye: OTHER: Pupils equally round and reactive to light Neck/C-Spine: OTHER: Supple, large Chest: OTHER: Dialysis catheter right upper chest Resp: OTHER: Clear to auscultation bilaterally, no rales, rhonchi or wheezes noted, no accessory muscle use noted. Cardio: OTHER: Regular rate and rhythm, heart sounds are slightly distant. 1+ radial pulses. Dorsalis pedis pulses are very faint but present bilaterally, capillary refill around 3 seconds, distal extremities are cooler than proximal extremities but not currently mottled + thrill left AC shunt/fistula site GI: OTHER: Soft, obese. Nontender in the upper quadrants but significant tenderness with any attempt to palpate lower abdomen and particularly if you attempt to lift the pannus. Visible portions of the pannus underneath the fold of skin are erythematous and inflamed. There are multiple superficial ulcerations generally ranging from dime-sized to quarter size. Currently no open wounds but area is moist with serous drainage. No obvious fluctuance or crepitus. Erythema extends to the mons pubis and vulva. No blistering or areas of bruising/ecchymosis noted. All of the skin is very tender to touch. Mild warmth. Examination of the most intertriginous part of the pannicular fold is limited due to the severity of pain. Area of involvement extends across the entire pannus. : OTHER: Mons pubis and vulvar edematous as noted Extremity: NARRATIVE EXTREMITY EXAM: Lower extremity edema, pain to both lower extremities but much less than the lower abdomen. Upper arms also ache with palpation. Beyond wounds noted, no areas of acute inflammation at joint sites i dentified Neuro: OTHER: Face symmetric, speech clear, handgrip equal Psych: OTHER: Anxious and uncomfortable during examination but otherwise normal affect Skin: OTHER: left foot -dry ulcer tip of 2nd toe left calf - large area eschar laterally, sores with serous drainage anterior, some surrounding erythema right foot - several pinpoint scabbed sores to toes 2-5, sore medial ankle, a few sores lateral foot right calf - large area eschar posteriorly left arm - sore between 4th-5th digits, minor scratches to left arm, bruising all around fistula site right chest - scabs in outline of prior dressing over HD catheter right arm - multiple areas 2-5mm bruising upper where BP cuff has been, multiple bruises at sites of IV and blood draw attempts Data : 01/27/20 18:10 01/27/20 18:10 Other Labs: Laboratory Last Values WBC 11.0 10^3/uL (4.0-10.0) H 01/27/20 18:10 RBC 2.49 10^6/uL (4.1-5.3) L 01/27/20 18:10 Hgb 7.8 g/dL (11.5-15.3) L 01/27/20 18:10 Hct 26.7 % (37.0-47.0) L 01/27/20 18:10 MCV 107.2 fL (81-99) H 01/27/20 18:10 MCH 31.3 pg (28.0-34.0) 01/27/20 18:10 MCHC 29.2 g/dL (30.0-36.0) L 01/27/20 18:10 RDW 17.1 % (12.1-15.1) H 01/27/20 18:10 Plt Count 134 10^3/cmm (130-400) 01/27/20 18:10 MPV 11.7 fL (7.4-10.4) H 01/27/20 18:10 Neut % (Auto) 87.8 % 01/27/20 18:10 Lymph % (Auto) 3.5 % 01/27/20 18:10 Sharp % (Auto) 7.6 % 01/27/20 18:10 Eos % (Auto) 0.5 % 01/27/20 18:10 Baso % (Auto) 0.2 % 01/27/20 18:10 Neut # (Auto) 9.65 10^3/uL (1.8-7.7) H 01/27/20 18:10 Lymph # (Auto) 0.4 10^3/uL (0.8-4.8) L 01/27/20 18:10 Sharp # (Auto) 0.8 10^3/uL (0.2-0.9) 01/27/20 18:10 Eos # (Auto) 0.1 10^3/uL (0.0-0.8) 01/27/20 18:10 Baso # (Auto) 0.0 10^3/uL (0.0-0.1) 01/27/20 18:10 Nucleated RBC % (auto) 0 % 01/27/20 18:10 Nucleated RBCs # 0.0 /100WBC 01/27/20 18:10 Sodium 139 mmol/L (136-145) 01/27/20 18:10 Potassium 4.4 mmol/L (3.5-5.1) 01/27/20 18:10 Chloride 97 mmol/L (98-107) L 01/27/20 18:10 Carbon Dioxide 14 mmol/L (22-29) L 01/27/20 18:10 Anion Gap 32.4 (5-19) H 01/27/20 18:10 BUN 67 mg/dL (8-23) H 01/27/20 18:10 Creatinine 5.8 mg/dL (0.5-0.9) H* 01/27/20 18:10 GFR Calculation 7.4 mL/min (90-130) L 01/27/20 18:10 Glucose 135 mg/dL (65-115) H 01/27/20 18:10 Calculated Osmolality 309 mOsm/kg (285-295) H 01/27/20 18:10 Calcium 7.0 mg/dL (8.5-10.5) L 01/27/20 18:10 Total Bilirubin 0.4 mg/dL (0.15-1.2) 01/27/20 18:10 AST 19 U/L (0-32) 01/27/20 18:10 ALT 22 U/L (0-33) 01/27/20 18:10 Alkaline Phosphatase 101 IU/L (35-105) 01/27/20 18:10 Total Protein 5.7 g/dL (6.6-8.7) L 01/27/20 18:10 Albumin 2.9 g/dL (3.5-5.2) L 01/27/20 18:10 Globulin 2.8 g/dL (1.3-4.6) 01/27/20 18:10 Urine Color Yellow (Yellow) 01/27/20 19:38 Urine Appearance Hazy (CLEAR) A 01/27/20 19:38 Urine pH 5 (5-7) 01/27/20 19:38 Ur Specific [place] 1.015 (1.005-1.030) 01/27/20 19:38 Urine Protein 3+ (Negative) H 01/27/20 19:38 Urine Glucose (UA) 1+ (Normal) 01/27/20 19:38 Urine Ketones Negative (Negative) 01/27/20 19:38 Urine Blood 2+ (Negative) H 01/27/20 19:38 Urine Nitrate Negative (Negative) 01/27/20 19:38 Urine Bilirubin Neg (Negative) 01/27/20 19:38 Urine Urobilinogen Norm mg/dL (Negative) 01/27/20 19:38 Ur Leukocyte Esterase Negative (Negative) 01/27/20 19:38 Urine RBC 0-4 /hpf (0-2) H 01/27/20 19:38 Urine WBC None /hpf (0-5) 01/27/20 19:38 Ur Squamous Epith Cells 0-4 /hpf (0-5) H 01/27/20 19:38 Amorphous Sediment 1+ /hpf 01/27/20 19:38 Urine Bacteria 1+ /hpf (NONE) H 01/27/20 19:38 Micro: Microbiology 01/27/20 18:03 Blood Culture - Preliminary Blood SPECIMEN COLLECTED 01/27/20 18:10 Blood Culture - Preliminary Blood SPECIMEN COLLECTED Other data: ARTERIAL DOPPLER 11/27/2019 RIGHT LEFT Brachial 152.00 mmHg Brachial mmHg Pressure (mmHg) Waveform Pressure (mmHg) Waveform 115.00 Pre-Exercise Toe Pressure 142.00 0.76 Pre-Exercise Toe/Brachial Index 0.93 FINDINGS Unable to obtain left brachial pressure due to dialysis catheter. Normal resting TBIs bilaterally Noncompressible arteries bilaterally Abnormal PVR waveforms bilaterally CONCLUSIONS No significant arterial obstruction, based on the PEDRO LUIS and TBIs bilaterally However the abnormal PVR waveforms, may suggest severe peripheral arterial disease versus technical problems with the pressure cuff application. Clinical correlation is recommended A&P Assessment and plan (1) Panniculitis: Urine appearance looks to be candidal in nature although I am concerned about possibility of secondary bacterial infection. Patient is exquisitely tender. Inflammation and skin changes extend from lower abdominal skin folds down into the suprapubic region and vulva. No areas of crepitus or open draining noted. Status: Acute (2) Non-pressure ulcer of left lower extremity: With extensive eschar formation and some surrounding erythema, drainage from recently opened area Status: Chronic Qualifiers: Non-pressure ulcer stage: with fat layer exposed Qualified Code(s): L97.922 - Non-pressure chronic ulcer of unspecified part of left lower leg with fat layer exposed (3) Non-pressure ulcer of right lower extremity: With extensive eschar formation and some erythema outlining the wound Status: Chronic Qualifiers: Non-pressure ulcer stage: with fat layer exposed Qualified Code(s): L97.912 - Non-pressure chronic ulcer of unspecified part of right lower leg with fat layer exposed (4) End stage renal disease: On hemodialysis Wednesdays and Fridays, missed hemodialysis on 01/25 secondary to transportation issues. Currently with associated metabolic acidosis. Status: Chronic (5) Anemia: Multifactorial chronically from chronic kidney disease, known clear cell carcinoma, endometrial carcinoma, chronic inflammation and losses from wounds and likely currently dilutional from missing dialysis. Status: Chronic Qualifiers: Anemia type: due to chronic kidney disease Chronic kidney disease stage: on chronic dialysis Qualified Code(s): N18.6 - End stage renal disease; D63.1 - Anemia in chronic kidney disease; Z99.2 - Dependence on renal dialysis (6) Elevated blood sugar: In a patient with multiple wounds, unclear if any definitive previous diabetic diagnosis but looking over records at least has some glucose in tolerance Status: Acute (7) Metastatic renal cell carcinoma: On Carbometyx Status: Chronic Qualifiers: Laterality: left Qualified Code(s): C64.2 - Malignant neoplasm of left kidney, except renal pelvis (8) Endometrial carcinoma: On Femara Status: Chronic Additional A&P Information Possible severe peripheral arterial disease based on recent arterial Dopplers On chronic pain control with hydrocodone History of hypertension Hyperlipidemia History of depression Hypoalbuminemia Inpatient admission Nephrology consultation to arrange hemodialysis Surgical consultation to evaluate both lower extremity wounds and consider ev aluation of the pannus and suprapubic regions under anesthesia given the severity of pain Broad antibiotic coverage currently with vancomycin, Zosyn and Diflucan Check sed rate and CRP to have as a baseline Pain control with morphine Add stool softeners scheduled Check hemoglobin A1c Sliding scale insulin coverage recently to help maximize wound healing Repeat CBC in the morning, TIBC, Hemoccult of stool and type and screen Need to see if we can get an accurate list of home medications. She uses [facility] home care so hopefully we can get a list from them tomorrow. I tried to go through a few home visit notes but could not find a recent list. Dates of prescription fills available in limited external history and current list are not coinciding. Will need to address to medications when they are available. In light of possible need for surgical intervention I will go on and continue on beta-blockade which has been listed on home medication list. I do not see any anticoagulants. Subcu heparin for DVT prophylaxis there will need to be held for possible surgical debridement Patient has home health for wound care currently. I did not discuss with her but the extent of her wounds and now infection in her pannicular area is such that consideration may have to be given to placement if such an option were to become available. Supportive care otherwise Currently full code Attestations Medical Necessity Statement*: Anticipated stay greater than 2 midnights in this patient and his hemodialysis yesterday. She has been found to have extensive panniculitis associated with severe pain and will need at least initial IV treatment and wound monitoring, possibly evaluation under anesthesia. Additionally she has lower extremity nonpressure ulcers at least 1 of which needs surgical debridement if not both of them. With her comorbid conditions, at high risk of rapidly progressive skin infections leading to acute systemic infection. Coding Level of Care Code Acute Assistant [employer] for [employer] Diagnoses Panniculitis M79.3 Non-pressure ulcer of left lower extremity L97.922 Non-pressure ulcer stage: with fat layer exposed Non-pressure ulcer of right lower extremity L97.912 Non-pressure ulcer stage: with fat layer exposed End stage renal disease N18.6 Anemia N18.6; D63.1; Z99.2 Anemia type: due to chronic kidney disease Chronic kidney disease stage: on chronic dialysis Elevated blood sugar R73.9 Metastatic renal cell carcinoma C64.2 Laterality: left Endometrial carcinoma C54.1
[2020-01-27 20:56] LABS: Add Urine Microscopic? YES; Bilirubin Urine Neg (Negative); Blood Urine 2+ (Negative); Glucose Urine UA 1+ (Normal); Ketones Urine Negative (Negative); Leukocyte Esterase Urine Negative (Negative); Nitrate Urine Negative (Negative); Protein Urine 3+ (Negative); Specific Gravity, Urine 1.015 (1.005-1.030); Urine Appearance Hazy (CLEAR); Urine Color Yellow (Yellow); Urobilinogen Urine Norm (Negative); pH Urine 5 (5-7)
[2020-01-27 21:16] LABS: Amorphous Sediment Urine 1+ /hpf; RBC Urine 0-4 /hpf (0-2); Squamous Epithelial Cell Urine 0-4 /hpf (0-5)
[2020-01-27 21:17] LABS: Add Urine Culture? No; Bacteria Urine 1+ /hpf
[2020-01-27] MEDS: sodium chloride 0.9% 500 ML 999 ML IV (21:18)
--- NOTE | 2020-01-27 21:35 | PC.NURSE ---
report given to Valerie YEE
[2020-01-27] MEDS: heparin 5,000 unit/mL INJ 1 mL 5000 UNIT SUBCUT (22:56)
--- NOTE | 2020-01-27 23:09 | PC.PHAR ---
Vancomycin is dosed at 500mg IVPB every 48 hours to produce a predicted trough level of 14.13 (population baased pharmacokinetic analysis). A trough level has been ordered from the lab to be obtained before the fourth dose to confirm and adjust if needed. The Zosyn is dosed at 2.25gm IVPB every 8 hours due to the creatinine clearance of 5.8.
[2020-01-27] MEDS: vancomycin 500 MG in sodium chloride 0.9% (plus) 100 ML 100 MG IV (23:20)
[2020-01-28] VITALS (68 sets, daily range): BP systolic 72–163; BP diastolic 23–78; PULSE 64–130; RESP 0–27; TEMP 36.4–37; O2SAT 89–100
--- NOTE | 2020-01-28 00:04 | ECG_ITS ---
[facility] Test Date: 2020-01-28 Pat Name: Shamika Hickman Department: Room: 269 Gender: Female Lead Caster: : [id number] Requested By: Bettie Roberts Order Number: [id number] Kenna MD: Jung Anand M.D. Measurements Intervals [place] Rate: 88 P: 54 [place]: 122 QRS: 15 QRSD: 93 T: 22 QT: 386 QTc: 468 Interpretive Statements SINUS RHYTHM NONSPECIFIC ST & T-WAVE ABNORMALITY Compared to ECG 07/07/2019 14:38:48 T-wave abnormality now present Prolonged QT interval no longer present Electronically Signed On 01-29-2020 17:40:22 CDT by Jung Anand M.D. [email or web address]
[2020-01-28] MEDS: piperacillin-tazobactam 2.25 GM in sodium chloride 0.9% (plus) 50 ML IV (00:24)
[2020-01-28 01:29] LABS: INR 1.95 (0.8-1.2)
[2020-01-28 01:30] LABS: Partial Thromboplastin Time 45.8 SECONDS (23.9-36.7)
[2020-01-28] MEDS: HYDROcodone-acetaminophen 7.5-325 mg Tablet 1 TAB PO (04:08)
[2020-01-28 05:03] LABS: Basophils % 0.3 %; Eosinophils # 0.1 10^3/uL (0.0-0.8); Eosinophils % 1.2 %; Hemoglobin 7.7 g/dL (11.5-15.3); Lymphocytes # 0.5 10^3/uL (0.8-4.8); Lymphocytes % 4.3 %; Mean Corpuscular HGB Conc 29.6 g/dL (30.0-36.0); Mean Corpuscular Volume 104.8 fL (81-99); Mean Platelet Volume 11.8 fL (7.4-10.4); Monocytes # 0.9 10^3/uL (0.2-0.9); Monocytes % 8.4 %; Neutrophils # 8.95 10^3/uL (1.8-7.7); Neutrophils % 85.3 %; Nucleated Red Blood Cells % 0 %; Platelet Count 146 10^3/cmm (130-400); Red Blood Count 2.48 10^6/uL (4.1-5.3); Red Cell Distribution Width 17.2 % (12.1-15.1); White Blood Count 10.5 10^3/uL (4.0-10.0)
[2020-01-28 05:24] LABS: C Reactive Protein 190.8 mg/L (0.0-4.9)
[2020-01-28 05:26] LABS: Anion Gap 33.9 (5-19); Blood Urea Nitrogen 69 mg/dL (8-23); Calcium 6.9 mg/dL (8.5-10.5); Carbon Dioxide 13 mmol/L (22-29); Chloride 100 mmol/L (98-107); Glomerular Filtration Rate 7.1 mL/min (90-130); Glucose 97 mg/dL (65-115); Magnesium 1.4 mg/dL (1.7-2.3); Osmolality Calculated 314 mOsm/kg (285-295); Potassium 4.9 mmol/L (3.5-5.1); Sodium 142 mmol/L (136-145)
[2020-01-28 05:27] LABS: Iron 52 ug/dL (37-145); Total Iron Binding Capacity 104 mcg/dl; Unsaturated Iron Binding 52 ug/dL (112-347)
[2020-01-28 05:29] LABS: Phosphorus 9.3 mg/dL (2.5-4.5)
--- NOTE | 2020-01-28 05:34 | PC.NURSE ---
Patient was admitted with extensive wounds to bilateral lower extremities. Wound beds noted to have lots of black eschar and very painful to the touch. Patient stated, I have a nurse that comes to my house and changes the dressings. Wounds have serosangiuenous drainage noted. Wounds cleaned with sterile water and wet to dry dressings applied using sterile techniques. Wound to left posterior soriano stretches from the lateral to medial side at a lenth of approx 19 cm to a width of approx 15 cm. Borders are irregular and indistinct. Some blistering noted to the lateral side of the wound bed at the superior end. The Right lower extremity has an irregular horn shaped wound with a small valley cut along the most posterior aspect of the leg. meaurments are approx 11 cm long by 20 cm wide in the widest part extending through the narrow bridge. Wound also has a bed of black eschar with irregular edges and serosangienous drainage. Both wounds have a odor about them. Pannus and lucie noted to be red and swollen and also painful to the touch. Left open to air. Also noted is extensive bruising to Right upper anterior arm. Antibiotics administered per order as well as pain medication. Will continue to monitor and assisst as needed following current plan of care.
[2020-01-28 05:42] LABS: Estmated Average Glucose 100; Hemoglobin A1C 5.1 % (4.0-6.0)
[2020-01-28 05:58] LABS: Erythrocyte Sedimentation Rate 65 mm/hr (0-15)
[2020-01-28 06:49] LABS: Glucose Point of Care 124 mg/dL (70-110)
--- NOTE | 2020-01-28 06:55 | P.CONIM_ITS ---
Providers/Reason For Consult Consulting Physican/Specialty*: Siva Goodwin MD Reason for Consult*: Bilateral lower extremity eschar Attending Physician: Bettie Roberts MD Primary Care Provider: Ariel Del Castillo MD History of Present Illness History of Present Illness Chief Complaint: I am hurting History of present illness: Ms. Shamika Hickman is a 64 year old female with multiple medical comorbidities including chronic dialysis and she has been getting hemodialysis via a left upper extremity AV fistula. Wednesday,Wednesday and Fridays and unfortunately she did miss her last Wednesday due to transportation issues. Patient was evaluated before at the wound care clinic for pressure injury ulcers involving the posterior aspects of bilateral lower extremities and has been evaluated for further surgical debridement at some point. But unfortunately she did not show up with the an appointment made to see my partner Dr. Nathan. Patient also have blisters and ulceration per report on her pannus due to excessive moisture. Had vascular ultrasounds done that showed possibility of severe peripheral arterial disease but the study was technically difficult, no evidence of DVT per venous duplex studies.. She has a history of both metastatic renal cell carcinoma and grade I endometrial carcinoma. Patient complains a lot of pain of the lower abdomen due to skin excoriation and irritation.Was admitted to the hospitalist service for further care and general surgery was consulted for potential debridement of the lower extremities. Review of Systems General: Reports: 10 or more systems reviewed and unremarkable except in HPI and below Meds/Allergies Home Medications and Allergies Home Medications Medication Instructions Recorded Confirmed Last Taken Type Prozac 20 mg PO DAILY 07/07/19 12/05/19 Unknown History Stool Softener 100 mg PO DAILY PRN 07/07/19 12/05/19 Unknown History amlodipine 10 mg PO DAILY 07/07/19 12/05/19 Unknown History hydralazine 25 mg PO TID 07/07/19 12/05/19 Unknown History letrozole 2.5 mg PO DAILY 07/07/19 12/05/19 Unknown History metolazone 5 mg PO DAILY 07/07/19 12/05/19 Unknown History metoprolol tartrate 25 mg PO BID 07/07/19 12/05/19 Unknown History simvastatin 40 mg PO DAILY 07/07/19 12/05/19 Unknown History calcitriol 0.25 mcg PO DAILY #30 cap 07/08/19 12/05/19 Unknown Rx ergocalciferol (vitamin D2) 50,000 unit PO Q7D #5 cap 07/08/19 12/05/19 Unknown Rx [Vitamin D2] albuterol sulfate 2 inh INHALATION Q6H #8.5 gm 10/12/19 12/05/19 Unknown Rx furosemide 40 mg tablet 40 mg PO QAM #30 tab 12/05/19 12/05/19 Unknown Rx hydrocodone-acetaminophen 1 tab PO DAILY #1 tab 01/21/20 Unknown Rx Allergies Allergy/AdvReac Type Severity Reaction Status Date / Time No Known Allergies Allergy Unknown Verified 01/28/20 07:00 Current Medications Current Medications Generic Name Dose Route Start Last Admin Trade Name Freq PRN Reason Stop Dose Admin Hydrocodone Bitart/Acetaminophen 1 tab 01/27/20 23:50 01/28/20 04:08 [place] 7.5-325 Mg PO 1 tab Q4H PRN Administration MODERATE PAIN Heparin Sodium (Beef Lung) 5,000 unit 01/27/20 21:57 01/27/20 22:56 Heparin SUBCUT 5,000 unit Q12H CORDELIA Administration Piperacillin Sod/Tazobactam 50 mls @ 12.5 mls/hr 01/28/20 00:00 01/28/20 00:24 Sod 2.25 gm/ Sodium Chloride IV 12.5 mls/hr Q8H CORDELIA Administration Protocol As Directed Vancomycin HCl 500 mg/ Sodium 100 mls @ 100 mls/hr 01/27/20 23:00 01/27/20 23:20 Chloride IV 100 mls/hr Q48H CORDELIA Administration Insulin Aspart 0 unit 01/27/20 23:45 01/28/20 04:02 Novolog SUBCUT Not Given BEDTIME CORDELIA Protocol Metoprolol Tartrate 25 mg 01/27/20 23:45 01/28/20 04:01 Lopressor PO Not Given Q12H CORDELIA Morphine Sulfate 4 mg 01/27/20 21:57 01/27/20 22:30 Morphine IVP 4 mg Q4H PRN Administration SEVERE PAIN PFSH Acute PFSH: Medical History Anemia Depression End stage renal disease HD MWF Endometrial carcinoma Has not had hysterectomy due to comorbid issues. On Femara. Hyperlipidemia Hypertension Metastatic renal cell carcinoma Left kidney, metastatic disease left humerus, spine, right occiput, sternum/rib. On Carometyx. Ovarian mass not evaluated for malignancy due to comorbid issues Pulmonary hypertension TIA (transient ischemic attack) Surgical History History of arteriovenostomy for renal dialysis History of biopsy multiple sites History of craniotomy (~08/2018) right partial craniotomy with mesh cranioplasty History of hernia repair History of surgery on upper extremity ORIF left pathological humerus fracture Vascular dialysis catheter in place Family History Father , age 70 Cancer Mother , age 80 Aneurysm Social History Smoking and tobacco status: never smoked Alcohol intake: never Substance/Drug Use: never Household members: family Current occupation: Disability Vitals/I&O/Wt Last Vital Signs Temp 97.8 F 01/28/20 04:00 Pulse 87 01/28/20 04:00 Resp 20 H 01/28/20 04:00 BP 104/47 01/28/20 04:00 Pulse Ox 92 01/28/20 04:00 01/27/20 01/27/20 01/28/20 14:59 22:59 06:59 Intake Total 240 / 240 Output Total 0 / 0 Balance 240 / 240 Weight last 48 hrs Weight 163 lb 6.4 oz Weight 160 lb Physical Exam Narrative: EXAM NARRATIVE: Patient is conscious alert oriented X3 BMI 29 Head and neck examination PERRLA no masses no cervical lymphadenopathy no jaundice Cardiac examination audible S1-S2 no murmurs no gallops no arrhythmias Chest is clear bilateral,abscence of Rhonchi or wheezes,no surgical emphysema. Abdomen lower abdominal tenderness particularly at the excoriation located at the infra aspect of the patient's pannus, associated with redness and moisture. Concerning for yeast infection otherwise nondistended soft no organomegaly guarding or rigidity/no signs of peritonitis. Left upper extremity AV fistula shows good thrill and bruit. There is a minor skin break at the mid medial part of the left arm that will require skin cleansing and painting with Betadine daily. Bilateral lower extremities show circumferential pressure injury unstageable(eschars) ulcers located at the posterior aspect of both legs. The left is bigger than the right. Left eschar shows soupy edges of the eschar that will require surgical debridement Right lower extremity eschar is stable and dry. Capillary refill less than 2 seconds Data Micro: Micro: Microbiology 01/27/20 18:03 Blood Culture - Pr eliminary Blood SPECIMEN [facility] ZORAIDA 01/27/20 18:10 Blood Culture - Pr eliminary Blood SPECIMEN [facility] A&P Assessment and plan (1) Pressure injury of lower extremity, unstageable: After history taking physical examination and reviewing the chart and images, the patient would benefit from the following. 1-Nutrition optimization 2-wound care in the form of Dakin's solution for cleansing purposes of the pannus area followed by inter-dry sheet placement for excessive moisture. With regard to the left lower extremity eschar will require surgical debridement in the OR. Right lower extremity eschar Betadine paint once a day followed by Thelma and will perform painting with Betadine of the left lower extremity escha r till patient gets surgery. 3-management of medical comorbidities per hospitalist service 4-physical therapy consultation when needed 5-assurance and education 6-frequent turning in bed and reposition every 2 hours. Help with offloading and prevent future pressure injury ulcers. 7. We will continue coordinating with nephrology and hospitalist services 8. Broad-spectrum antibiotic All questions have been answered and all concerns have been addressed to patient's satisfaction. Status: Acute Consult Attestations Medical Necessity Statement: Patient will require inpatient hospitalization past 2 midnights for medical optimization and wound care,also will require hemodialysis during hospitalization. Time Spent in Patient Care: (>than 50% of time spent in counselling and/or direct pt care on unit) . Coding Level of Care Code Acute Construction Executive for Andrea Malcolm Diagnoses Pressure injury of lower extremity, unstageable L89.890
--- NOTE | 2020-01-28 06:55 | PM.CONSULT ---
Providers/Reason For Consult Consulting Physican/Specialty*: Natividad George DO, telenephrology Reason for Consult*: ESRD Requesting Physcian: Bettie Roberts MD Attending Physician: Bettie Roberts MD Primary Care Provider: Ariel Del Castillo MD History of Present Illness History of Present Illness Shamika Hickman is a 64 year old female presented for evaluation of abdominal and leg pain. ESRD on HD MWF. Missed 01/26/2020 due to transportation issues. Metastatic renal cell carcinoma to bone. Hemodialysis initiated this morning. She quickly became unresponsive, hypotensive, bradycardic. Code Blue called. Review of Systems General: Reports: ROS unobtainable due to medical condition Meds/Allergies Home Medications and Allergies Home Medications Medication Instructions Recorded Confirmed Last Taken Type Prozac 20 mg PO DAILY 07/07/19 12/05/19 Unknown History Stool Softener 100 mg PO DAILY PRN 07/07/19 12/05/19 Unknown History amlodipine 10 mg PO DAILY 07/07/19 12/05/19 Unknown History hydralazine 25 mg PO TID 07/07/19 12/05/19 Unknown History letrozole 2.5 mg PO DAILY 07/07/19 12/05/19 Unknown History metolazone 5 mg PO DAILY 07/07/19 12/05/19 Unknown History metoprolol tartrate 25 mg PO BID 07/07/19 12/05/19 Unknown History simvastatin 40 mg PO DAILY 07/07/19 12/05/19 Unknown History calcitriol 0.25 mcg PO DAILY #30 cap 07/08/19 12/05/19 Unknown Rx ergocalciferol (vitamin D2) 50,000 unit PO Q7D #5 cap 07/08/19 12/05/19 Unknown Rx [Vitamin D2] albuterol sulfate 2 inh INHALATION Q6H #8.5 gm 10/12/19 12/05/19 Unknown Rx furosemide 40 mg tablet 40 mg PO QAM #30 tab 12/05/19 12/05/19 Unknown Rx hydrocodone-acetaminophen 1 tab PO DAILY #1 tab 01/21/20 Unknown Rx Allergies Allergy/AdvReac Type Severity Reaction Status Date / Time No Known Allergies Allergy Unknown Verified 01/28/20 07:00 Current Medications Current Medications Generic Name Dose Route Start Last Admin Trade Name Freq PRN Reason Stop Dose Admin Hydrocodone Bitart/Acetaminophen 1 tab 01/27/20 23:50 01/28/20 04:08 [place] 7.5-325 Mg PO 1 tab Q4H PRN Administration MODERATE PAIN Heparin Sodium (Beef Lung) 5,000 unit 01/27/20 21:57 01/27/20 22:56 Heparin SUBCUT 5,000 unit Q12H CORDELIA Administration Piperacillin Sod/Tazobactam 50 mls @ 12.5 mls/hr 01/28/20 00:00 01/28/20 00:24 Sod 2.25 gm/ Sodium Chloride IV 12.5 mls/hr Q8H CORDELIA Administration Protocol As Directed Vancomycin HCl 500 mg/ Sodium 100 mls @ 100 mls/hr 01/27/20 23:00 01/27/20 23:20 Chloride IV 100 mls/hr Q48H CORDELIA Administration Insulin Aspart 0 unit 01/27/20 23:45 01/28/20 04:02 Novolog SUBCUT Not Given BEDTIME CORDELIA Protocol Metoprolol Tartrate 25 mg 01/27/20 23:45 01/28/20 04:01 Lopressor PO Not Given Q12H CORDELIA Morphine Sulfate 4 mg 01/27/20 21:57 01/27/20 22:30 Morphine IVP 4 mg Q4H PRN Administration SEVERE PAIN PFSH Acute PFSH: Medical History Anemia Depression End stage renal disease HD MWF Endometrial carcinoma Has not had hysterectomy due to comorbid issues. On Femara. Hyperlipidemia Hypertension Metastatic renal cell carcinoma Left kidney, metastatic disease left humerus, spine, right occiput, sternum/rib. On Carometyx. Ovarian mass not evaluated for malignancy due to comorbid issues Pulmonary hypertension TIA (transient ischemic attack) Surgical History History of arteriovenostomy for renal dialysis History of biopsy multiple sites History of craniotomy (~08/2018) right partial craniotomy with mesh cranioplasty History of hernia repair History of surgery on upper extremity ORIF left pathological humerus fracture Vascular dialysis catheter in place Family History Father , age 70 Cancer Mother , age 80 Aneurysm Social History Smoking and tobacco status: never smoked Alcohol intake: never Substance/Drug Use: never Household members: family Current occupation: Disability Vitals/I&O/Wt Last Vital Signs Temp 97.8 F 01/28/20 04:00 Pulse 87 01/28/20 04:00 Resp 20 H 01/28/20 04:00 BP 104/47 01/28/20 04:00 Pulse Ox 92 01/28/20 04:00 01/27/20 01/27/20 01/28/20 14:59 22:59 06:59 Intake Total 240 / 240 Output Total 0 / 0 Balance 240 / 240 Weight last 48 hrs Weight 74.117 kg Weight 72.575 kg Data Labs: Other Labs: albumin 2.9, aubree calcium 8, phos 9.3, Mg 1.4 PTH 06/2019: 1075 Micro: Micro: Microbiology 01/27/20 18:03 Blood Culture - Pr eliminary Blood SPECIMEN [facility] ZORAIDA 01/27/20 18:10 Blood Culture - Pr eliminary Blood SPECIMEN [facility] A&P Additional A&P Information Impression: 1. ESRD on HD MWF s/p cardiac arrest during hemodialysis this morning 2. 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 Metastatic renal cell carcinoma, endometrial CA, ovarian mass 4. Anemia 5. Metabolic acidosis 6. Poor nutrition 7. Hypomagnesemia Recommendation: Given multiple comorbities and overall very poor prognosis, recommend comfort care. Will follow-up later in day after CT head and Dr Giordano's discussion with family. Consult Attestations Medical Necessity Statement: per primary service Coding Level of Care Code Acute Image Consultant for Andrea Malcolm
--- NOTE | 2020-01-28 07:56 | PC.NURSE ---
Surgeon in to see patient and assess wounds. Bilateral lower legs noted to be unstageable pressure injuries due to lack of movement at home. Provider stated, patient to recieve dialysis today and maybe even tomorrow then take to surgery for debridement of Left lower leg. For now patient to recieve painting with iodine to BLE wounds with ABD and kerlex wrap to protect wounds. Dressings changed with day shift nurse. Also patient has small wound to Left inner upper arm just superior to elbow that was also painted with iodine and dressed with gauze per provider order. Dressings to be changed daily. New order for reynold to clean pannus and lucie with interdry cloth to be placed on wounds for moisture wicking. Will continue to monitor and assist as needed following CPOC.
--- NOTE | 2020-01-28 08:22 | PC.NURSE ---
dressing change done by manufacturing shift supervisor nurse.
[2020-01-28] MEDS: morphine 4 mg/mL SDV 1 mL IVP ×2 (08:32→23:47)
--- NOTE | 2020-01-28 08:36 | PC.NURSE ---
patient taken to dialysis. Per David in dialysis, need to hold zosyn until after dialysis.
--- NOTE | 2020-01-28 09:16 | PC.NURSE ---
Patient is in Dialysis.
--- NOTE | 2020-01-28 09:23 | ECG_ITS ---
[facility] Test Date: 2020-01-28 Pat Name: Shamika Hickman Department: Room: ICU10 Gender: Female Clearing Inspector: : 1955 Requested By: Puneet Leonard Order Number: [id number] Kenna MD: Jung Anand M.D. Measurements Intervals [place] Rate: 106 P: 51 FL: 133 QRS: 21 QRSD: 90 T: -60 QT: 345 QTc: 460 Interpretive Statements SINUS TACHYCARDIA NONSPECIFIC ST & T-WAVE ABNORMALITY Compared to ECG 01/28/2020 02:51:58 Sinus rhythm no longer present T-wave abnormality still present Electronically Signed On 01-28-2020 20:19:22 CDT by Jung Anand M.D. [id number]
--- NOTE | 2020-01-28 09:23 | ANES.PROC ---
Anesthesia Procedures Procedure/Date: 01/28/20 Intubation: Time Out Performed: Yes Consent: requested by attending/covering physician and emergency procedure Sedative (amount): none Laryngoscope: Yomaira ET Tube Size: 8 ET Tube Uncuffed: No Tube Secured Depth (cm): 22 Tube Secured Location: lips Tube Placement Confirmation: visualized tube passing through cords, equal breath sounds bilaterally, no breath sounds over epigastrium, confirmation by capnometry and color change noted Patient Tolerated Procedure: well and no complications Intubation Complications: none Additional Comments: Code in progress. Asked to intubate pt br Dr Giordano. IUDV x 1.
--- NOTE | 2020-01-28 09:25 | ECG_ITS ---
[facility] Test Date: 2020-01-28 Pat Name: Shamika Hickman Department: Room: ICU10 Gender: Female Rubber Goods Tester: : 1955 Requested By: Puneet Leonard Order Number: [id number] Kenna MD: Jung Anand M.D. Measurements Intervals [place] Rate: -1 P: MA: -1 QRS: 0 QRSD: -1 T: 0 QT: -1 QTc: Interpretive Statements Sinus tachycardia ST depressions in anterolateral leads indicating likely ischemia Compared to ECG 01/28/2020 02:51:58 Sinus tachycardia is now present. Electronically Signed On 01-28-2020 20:23:43 CDT by Jung Anand M.D. [id number]
--- NOTE | 2020-01-28 09:25 | XRR_ITS ---
PROCEDURE INFORMATION: Exam: XR Chest, 1 View Exam date and time: 01/28/2020 9:27 AM Age: 64 years old Clinical indication: Device placement; Other: Et and ng placement; Additional info: Code TECHNIQUE: Imaging protocol: XR of the chest Views: 1 view. COMPARISON: 1. CR XR chest 1V portable [id number] 10/12/2019 7:[address] chest abd pel w con* 09/05/2019 2:17:52 PM FINDINGS: Tubes, catheters and devices: Dialysis catheter unchanged in position. Endotracheal tube tip 2.1 cm above chava. Enteric tube extends into body of stomach and tip is not visualized. Lungs: There are bilateral patchy pulmonary opacities greatest in perihilar regions. This may be edema and/or pneumonia. Pleural space: No significant visible pleural effusion. No pneumothorax. Heart/Mediastinum: There is stable enlargement of cardiac silhouette. Bones/joints: Again seen is expansile lesion of right lateral 6th rib. Expansile thoracic spine bony lesions are well visualized. XR/XR chest 1V portable [id number] IMPRESSION: 1. Endotracheal tube above chava. 2. Development of bilateral pulmonary opacities may be edema and/or pneumonia.
--- NOTE | 2020-01-28 09:27 | PC.NURSE ---
patient taken to ICU 10
--- NOTE | 2020-01-28 09:46 | CTR_ITS ---
PROCEDURE INFORMATION: Exam: CT Head Without Contrast Exam date and time: 01/28/2020 9:48 AM Age: 64 years old Clinical indication: Other: Code; Additional info: Post code. TECHNIQUE: Imaging protocol: Computed tomography of the head without contrast. Radiation optimization: All CT scans at this facility use at least one of these dose optimization techniques: automated exposure control; mA and/or kV adjustment per patient size (includes targeted exams where dose is matched to clinical indication); or iterative reconstruction. COMPARISON: CT head wo/w con [id number] 09/08/2019 8:49 AM RADIATION DOSE METRICS: Total DLP (mGy-cm): 901.41 FINDINGS: Brain: There is chronic lacunar infarct in left basal ganglia. There is no acute intracranial hemorrhage. There is lucency in the cerebral white matter, likely microvascular disease although non-specific. Chavis white differentiation is intact. There are no extra-axial fluid collections. No evidence of mass. There is no mass effect or midline shift. Cerebral ventricles: The ventricles and sulci are enlarged, consistent with volume loss / atrophy. No hydrocephalus. Bones/joints: There is right parietooccipital craniectomy with cranioplasty There is stable multiple nonspecific rounded skull lucencies, largest in left parietal lobe measuring 6 mm. Paranasal sinuses: There is mild mucosal thickening in paranasal sinuses. Mastoid air cells: No significant mastoid effusion. Vasculature: There is vascular calcification. Soft tissues: Unremarkable as visualized. CT/CT head wo con* [id number] IMPRESSION: 1. No evidence of acute intracranial abnormality. No evidence of acute infarction, hemorrhage, or mass. Chavis-white differentiation is maintained without CT evidence of diffuse anoxic insult at this time. 2. Atrophy and microvascular disease. Radiation Dose CTDIVOL = (mGy): DLP = 901.41 (mGy-cm)
--- NOTE | 2020-01-28 09:51 | PM.PN ---
Subjective Subjective: Interval history: I arrived to this patient's room during a rapid response. She was receiving dialysis and became unresponsive. Medications: Reviewed: Yes Vitals/I&O/Wt Last Vital Signs Temp 97.8 F 01/28/20 04:00 Pulse 87 01/28/20 04:00 Resp 18 01/28/20 08:32 BP 104/47 01/28/20 04:00 Pulse Ox 93 01/28/20 08:32 01/27/20 01/28/20 01/28/20 22:59 06:59 14:59 Intake Total 240 / 240 Output Total 0 / 0 Balance 240 / 240 Weight last 48 hrs Weight 74.117 kg Weight 72.575 kg Physical Exam Narrative: EXAM NARRATIVE: Unresponsive female when I arrived, shortly after a code was called. I have seen her multiple times and now in the ICU. She is intubated, unresponsive, posturing decerebrate Neurologic: See above Cardiovascular tachycardic, with a heart rate of approximately 115. Blood pressure is now stabilized. Lungs clear Abdomen is soft. No obvious organomegaly Extremities dressings in place. Refill approximately 3 to 4 seconds. Data : 01/28/20 09:22 01/28/20 09:22 Micro: Microbiology 01/27/20 18:03 Blood Culture - Preliminary Blood SPECIMEN COLLECTED 01/27/20 18:10 Blood Culture - Preliminary Blood SPECIMEN COLLECTED A&P Assessment and plan (1) Postoperative cardiac arrest: Was called for rapid response. Initially patient was bradycardic, and pulse present. During this time a blood pressure was trying to be obtained and dopamine was going to be started. During this time blood pressure could not be obtained easily and although pulse was still faintly present perfusion was in question so CPR was initiated. This continued for at least 2 rounds of CPR, and 2 doses of epinephrine, 1 dose of magnesium secondary to previously noted low magnesium, and 1 dose of bicarb secondary to known metabolic acidosis on admission. Patient was intubated in the interim by SEGUN Raines. Dopamine had been started in the interim from the original order and was weaned down by the end of the code. After moving the patient to ICU it was noted she had some decerebrate posturing. CBC, CMP, ABG, chest x-ray, EKG, troponin series, CT head without contrast all ordered and pending following code. I am obviously most concerned regarding her neurologic status at this time secondary to posturing. Prognosis is poor. Patient rechecked in 1209. Continued posturing with question of seizure activity. Ativan 2 mg IV x1. Keppra 500 mg IV every 12 hours initiated. Dopamine had been weaned, with no recurrence of bradycardia. However blood pressure is now lower. Initiate norepinephrine. Status: Acute (2) Panniculitis: Biotics and antifungals were initiated. Status: Acute (3) Non-pressure ulcer of left lower extremity: Extensive eschar with concern of infection. Placed on Zosyn and vancomycin. Blood cultures were drawn Status: Chronic Qualifiers: Non-pressure ulcer stage: with fat layer exposed Qualified Code(s): L97.922 - Non-pressure chronic ulcer of unspecified part of left lower leg with fat layer exposed (4) Non-pressure ulcer of right lower extremity: See above Status: Chronic Qualifiers: Non-pressure ulcer stage: with fat layer exposed Qualified Code(s): L97.912 - Non-pressure chronic ulcer of unspecified part of right lower leg with fat layer exposed (5) End stage renal disease: Missed hemodialysis prior to presentation. This typically is given Wednesday Nephrology has been consulted Status: Chronic (6) Anemia: Multifactorial from chronic kidney disease, known clear cell carcinoma, endometrial carcinoma, as well as other causes Status: Chronic Qualifiers: Anemia type: due to chronic kidney disease Chronic kidney disease stage: on chronic dialysis Qualified Code(s): N18.6 - End stage renal disease; D63.1 - Anemia in chronic kidney disease; Z99.2 - Dependence on renal dialysis (7) Elevated blood sugar: History of glucose intolerance Hemoglobin A1c pending. Status: Acute (8) Metastatic renal cell carcinoma: On Carbometyx Status: Chronic Qualifiers: Laterality: left Qualified Code(s): C64.2 - Malignant neoplasm of left kidney, except renal pelvis (9) Endometrial carcinoma: On Femara Status: Chronic Additional A&P Information Probable severe peripheral artery disease Chronic pain Hypertension Hyperlipidemia Depression Full code Heparin for DVT prophylaxis I have discussed with the family her very poor prognosis. They will be making some decisions over the next 24-48 hours should she not improve. Attestations Medical Necessity Statement*: Needs continued hospital stay status post cardiac arrest Critical Care Time: 54 minutes spent in critical care time, during the treatment, follow-up in this patient with cardiac arrest during hemodialysis Coding Level of Care Code Acute Maintenance Groundskeeper for Andrea Fwdebora Diagnoses Postoperative cardiac arrest Panniculitis M79.3 Non-pressure ulcer of left lower extremity L97.922 Non-pressure ulcer stage: with fat layer exposed Non-pressure ulcer of right lower extremity L97.912 Non-pressure ulcer stage: with fat layer exposed End stage renal disease N18.6 Anemia N18.6; D63.1; Z99.2 Anemia type: due to chronic kidney disease Chronic kidney disease stage: on chronic dialysis Elevated blood sugar R73.9 Metastatic renal cell carcinoma C64.2 Laterality: left Endometrial carcinoma C54.1
[2020-01-28 09:59] LABS: Hematocrit 28.8 % (37.0-47.0); Hemoglobin 8.5 g/dL (11.5-15.3); Mean Corpuscular HGB Conc 29.5 g/dL (30.0-36.0); Mean Corpuscular Hemoglobin 31.3 pg (28.0-34.0); Mean Corpuscular Volume 105.9 fL (81-99); Mean Platelet Volume 11.8 fL (7.4-10.4); Platelet Count 151 10^3/cmm (130-400); Red Blood Count 2.72 10^6/uL (4.1-5.3); Red Cell Distribution Width 17.4 % (12.1-15.1); White Blood Count 15.2 10^3/uL (4.0-10.0)
--- NOTE | 2020-01-28 10:00 | PC.NURSE ---
notified patient's family Yossi Jonathan that patient was sent to ICU 10.
[2020-01-28 10:07] LABS: Alanine Aminotransferase 27 U/L (0-33); Albumin Level 2.6 g/dL (3.5-5.2); Alkaline Phosphatase 196 IU/L (35-105); Anion Gap 37.7 (5-19); Aspartate Amino Transferase 32 U/L (0-32); Blood Urea Nitrogen 63 mg/dL (8-23); Calcium 7.1 mg/dL (8.5-10.5); Carbon Dioxide 15 mmol/L (22-29); Chloride 98 mmol/L (98-107); Globulin 2.7 g/dL (1.3-4.6); Glucose 127 mg/dL (65-115); Osmolality Calculated 320 mOsm/kg (285-295); Potassium 5.7 mmol/L (3.5-5.1); Sodium 145 mmol/L (136-145); Total Bilirubin 0.4 mg/dL (0.15-1.2); Total Protein 5.3 g/dL (6.6-8.7)
[2020-01-28 10:12] LABS: Troponin(5th) Baseline 190 ng/L (0-10)
[2020-01-28 10:42] LABS: Absolute Eosinophils 0.1 10^3/cmm (0.0-0.7); Absolute Segmented Neutrophil 10.3 10/cmm (1.6-7.1); Band Neutrophils Absolute 1.1 10^3/cmm (0.0-1.2); Eosinophils 1 %; Lymphocytes 15 %; Monocytes Absolute 1.4 10^3/cmm (0.1-0.6); Segmented Neutrophils 68 %; Total Cells Counted 100 (0-100)
[2020-01-28 10:43] LABS: Anisocytosis 1+; Poikilocytosis 1+
[2020-01-28 10:44] LABS: Macrocytosis 1+
[2020-01-28 10:46] LABS: Burr Cells 1+
[2020-01-28 10:51] LABS: Absolute Neutrophil 11.4 10^3/cmm (1.4-6.5); Platelet Estimate Normal (Normal)
[2020-01-28 11:04] LABS: Glucose Point of Care 62 mg/dL (70-110)
[2020-01-28] MEDS: nystatin powder 15 gm Btl 1 APPLIC TOPICAL ×2 (11:38→18:34)
[2020-01-28] MEDS: piperacillin-tazobactam 3.375 GM in sodium chloride 0.9% (plus) 50 ML IV ×2 (11:39→22:58)
[2020-01-28] MEDS: DOPamine drip 400 MG/250 ML PREMIX 13.9 MG IV (13:27)
[2020-01-28] MEDS: LORazepam 2 mg/mL INJ 1 mL IVP (13:27)
--- NOTE | 2020-01-28 15:25 | ECG_ITS ---
[facility] Test Date: 2020-01-28 Pat Name: Shamika Hickman Department: Room: ICU10 Gender: Female Commercial Real Estate Underwriter: : 1955 Requested By: Puneet Leonard Order Number: [id number] Kenna MD: Jung Anand M.D. Measurements Intervals [place] Rate: 79 P: 58 WY: 125 QRS: 33 QRSD: 96 T: 0 QT: 416 QTc: 479 Interpretive Statements SINUS RHYTHM SHORT WY INTERVAL NONSPECIFIC ST & T-WAVE ABNORMALITY Compared to ECG 01/28/2020 11:46:52 Sinus tachycardia no longer present T-wave abnormality still present Electronically Signed On 01-29-2020 17:42:55 CDT by Jung Anand M.D. [id number]
--- NOTE | 2020-01-28 16:05 | PC.NURSE ---
Slowly weaning off Dopamine and going to start Levaphed per Dr. Giordano request. Wounds to the lower extremeties and left upper arm cleaned with Betadine and covered.
--- NOTE | 2020-01-28 18:37 | PC.NURSE ---
Levaphed started at 1600 at 8 mcg/min.
--- NOTE | 2020-01-28 18:38 | PC.NURSE ---
Pt Brother came to see pt. She remains unsedated and unresponsive. Brother states that she will remain a full code, but if she starts to code again to please call him and he only wants a round of CPR and he will stop it at that point. Feet are modeling on the toes and no responce to pain. Will continue to monitor.
[2020-01-28 19:14] LABS: Glucose Point of Care 99 mg/dL (70-110)
--- NOTE | 2020-01-28 19:29 | PC.NURSE ---
Pt heart rate dropped to 60's with a Junctional rhythm, BP dropped to SBP 70's. Brother called and updated him, per his request. Seven states to not add any additional measures to her regarding her care. Continue as is, no CPR if her heart was to stop. Dr. Roberts called and notified of pt condition.
[2020-01-28 19:34] LABS: Glucose Point of Care 114 mg/dL (70-110)
--- NOTE | 2020-01-28 19:58 | PC.NURSE ---
During Nursing Shift Assessment, patient was turned to assess back and repositioning to which pt HR then decreased from 80bpm down to 60bpm, with perfuse sweating and decreased BP to 89/23 with a MAP of 43. Manual BP obtained to clarify. Levophed titrated up from 16mcg/min to 20mcg/min. MD Alejandra notified and came to bedside of patient. Per report from dayshift RN, family wishes if in the event pt was to code, no CPR or other measures are to be done for life saving events. OG drainage appears to be brown in nature, and report from dayshift RN states this to be a new finding. Distal pulses found with doppler, and are marked for future references. Currently Pt v/s have stabilized. Pt room visible from nurses station with continued close monitoring of conditions.
[2020-01-28 20:16] LABS: Anion Gap 28.5 (5-19); Blood Urea Nitrogen 53 mg/dL (8-23); Chloride 107 mmol/L (98-107); Glomerular Filtration Rate 9.7 mL/min (90-130); Glucose 123 mg/dL (65-115); Osmolality Calculated 306 mOsm/kg (285-295); Potassium 4.5 mmol/L (3.5-5.1); Sodium 140 mmol/L (136-145)
[2020-01-28 20:19] LABS: Calcium 4.3 mg/dL (8.5-10.5); Carbon Dioxide 9 mmol/L (22-29)
--- NOTE | 2020-01-28 21:09 | PM.CCN ---
Critical Care Event Note Critical Care Event The high probability of a clinically significant, sudden or life threatening deterioration of the patient's cardiopulmonary system(s) required my full and direct attention, intervention and personal management. The critical care time is as shown. This time is in addition to time spent performing any reported procedures but includes the following: [x] Data and vital sign review and interpretation [x] Patient assessment, examination and intervention [x] Documentation [x] Medication orders and management Called with patient bradying down and becoming hypotensive and hypoxic around 7:20 p.m. Levophed was increased and after a couple of minutes, heart rate came up as did blood pressure. Oxygenation stabilized. Suspected that it was a vagal event just based on description though I was not at the bedside at the time that this started. Just now, patient had a similar event with heart rate again dropping into the 60s, oxygen saturations being unmeasurable and blood pressure not being able to be obtained. Pulses were dopplerable but not palpable. Patient noted to have some agonal breathing. She is intubated and not on any sedation. Again after a few minutes vital signs improved. Rhythm does look junctional at times. I still think that there may be a component of her vagalling from the agonal respirations around the ET tube. I spoke with patient's brother Seven to update on the worsening prognosis. They do not want any further aggressive measures such as CPR. She is currently intubated and on pressors and we will continue this management. I encouraged the family to come in and see her tonight. As of this moment, heart rate is 68, blood pressure is 146/38, oxygen saturation 100%. I had turned up FiO2 to 100% during the acute event a few moments ago. We will work on weaning that down. If she continues to have episodes such as this I do not know that she will survive the night. Hospital entry staff were notified that family is allowed to come in and see her tonight. They are about 50 miles away. Critical Care Time Critical Care Time: Code activated: No Critical Care Time (min): 15 Coding Level of Care Code Acute Marketing Strategy Lead for Andrea Malcolm
--- NOTE | 2020-01-28 21:56 | PC.NURSE ---
Pt had a second episode of decreased HR and Hypotensive event. Pulses not palpable, but were found to be faint with Doppler. Agonal breathing, and diaphoresis noted with continued vent placement. MD Alejandra at bedside during occurrence, to which she notified family and changed resuscitation status from Full Code to an Allow Natural order that is reflected in chart. Family is on the way to hospital. Patient V/S have currently returned to stable. Levophed @ 20mcg/min Bicarb @ 50mL/hr.
[2020-01-29] VITALS (59 sets, daily range): BP systolic 55–170; BP diastolic 29–71; PULSE 64–82; RESP 16–27; TEMP 36.8; O2SAT 88–100
[2020-01-29 03:17] LABS: ABG PCO2 34.7 mmHg (35-45); ABG PH Result 7.19 (7.35-7.45); Base Excess ABG -13.9 mmol/L (-2.0-2.0); HCO3 ABG 13.2 mmol/L (22-26)
[2020-01-29 03:18] LABS: Blood Gas Allen Test pos; Oxygen Device vent; Oxygen Saturation ABG 97.8; Potassium Level - ABG 4.4 mmol/L (3.5-5.0)
[2020-01-29 03:19] LABS: Blood Gas Drawn By LUNSA; Blood Gas Sample Site RADIAL RIGHT; Blood Gas Sample Type ARTERIAL; Blood Gas Tidal Volume 450; Blood Gas Vent Mode CMV
[2020-01-29 03:20] LABS: Arterial Blood Gas Hematocrit 27.3 % (37-47); Blood Gas CCRB Time 1034; HGB O2 Sat 96.2 % (95-100); Ionized Calcium Level - ABG 0.9 mmol/L (1.1-1.4); Total Hemoglobin 8.9 g/dL (12-16)
[2020-01-29 03:21] LABS: Carboxyhemoglobin 0.3 %THgb (0.4-20.1); Methemoglobin 1.3 % (0.4-1.5)
[2020-01-29] MEDS: morphine 4 mg/mL SDV 1 mL IVP ×2 (03:50→10:58)
[2020-01-29 04:12] LABS: Basophils # 0.1 10^3/uL (0.0-0.1); Basophils % 0.3 %; Hematocrit 26.4 % (37.0-47.0); Lymphocytes # 0.6 10^3/uL (0.8-4.8); Lymphocytes % 2.7 %; Mean Corpuscular HGB Conc 30.3 g/dL (30.0-36.0); Mean Corpuscular Hemoglobin 31.4 pg (28.0-34.0); Mean Corpuscular Volume 103.5 fL (81-99); Mean Platelet Volume 11.9 fL (7.4-10.4); Monocytes # 1.7 10^3/uL (0.2-0.9); Neutrophils % 88.3 %; Nucleated Red Blood Cells # 0.1 /100WBC; Nucleated Red Blood Cells % 0.2 %; Platelet Count 220 10^3/cmm (130-400); Red Blood Count 2.55 10^6/uL (4.1-5.3); Red Cell Distribution Width 17.3 % (12.1-15.1); White Blood Count 20.6 10^3/uL (4.0-10.0)
[2020-01-29 04:39] LABS: Alanine Aminotransferase 135 U/L (0-33); Albumin Level 2.6 g/dL (3.5-5.2); Alkaline Phosphatase 152 IU/L (35-105); Aspartate Amino Transferase 215 U/L (0-32); Blood Urea Nitrogen 71 mg/dL (8-23); Carbon Dioxide 13 mmol/L (22-29); Chloride 95 mmol/L (98-107); Globulin 2.2 g/dL (1.3-4.6); Glomerular Filtration Rate 6.5 mL/min (90-130); Glucose 148 mg/dL (65-115); Osmolality Calculated 318 mOsm/kg (285-295); Sodium 142 mmol/L (136-145); Total Bilirubin 0.5 mg/dL (0.15-1.2); Total Protein 4.8 g/dL (6.6-8.7)
[2020-01-29 04:44] LABS: Anion Gap 39.2 (5-19); Calcium 5.9 mg/dL (8.5-10.5); Potassium 5.2 mmol/L (3.5-5.1)
[2020-01-29 04:45] LABS: Troponin T (5th) Once 272 ng/L (0-10)
--- NOTE | 2020-01-29 05:52 | PC.NURSE ---
Shift Summary: Pt had increase incidences of pain proceeded with biting around ET tubing followed by some vomiting. 4mg of morphine given twice over shift to try and decrease pain. Dorsal pulses faint with Doppler, with noticeable decrease in temp felt with palpation and loss of more color turning pale/purple. Right arm from dialysis access port has had noticeable drainage. Two incidences of hypotensive events. Family was called, and came at the request of On-Call MD. Family updated on pt condition, and stated to withhold additional lifesaving measures. Would reevaluate pt condition in AM, and make other decisions and plans then. Code status changed to AND. OG drainage green/brown in color. No response to auditory, sternal rub, or nail bed pressure. Levophed titrated down to 16mcg/min Bicarb at 50mL/hr 200 total OG drainage output
--- NOTE | 2020-01-29 07:00 | XR_ITS ---
WS: [id number] Portable AP supine chest, 01/29/2020 Clinical Data: resp failure Comparison: 01/28/2020 Findings: The endotracheal tube, enteric tube, and dialysis catheter remain in same position. Patchy opacities are seen throughout both lungs. The heart size remains the same. The expansile lesion of th e lateral right sixth rib remains unchanged. Monitor leads are on the chest wall. XR/XR chest 1V portable [id number] Impression: 1. Satisfactory position of multiple tubes. 2. Bilateral pulmonary opacities may represent pulmonary edema or pneumonia.
[2020-01-29] MEDS: LORazepam 2 mg/mL INJ 1 mL 0.5 MG IVP ×2 (08:10→12:33)
--- NOTE | 2020-01-29 08:37 | PC.NURSE ---
Staff went into pt room to do morning assessment. Pt was alert and looking around. Able to follow commands and answer yes and no questions. BP getting higher and lead technical writer able to start decreasing Levephed. Called dr. Jameson to let him know that pt is getting slightly irritated. New order for Ativan 0.5 for x 1. Will continue to monitor.
[2020-01-29 08:58] LABS: ABG PCO2 29.7 mmHg (35-45); ABG PH Result 7.29 (7.35-7.45); Arterial Blood Gas Hematocrit 23.6 % (37-47); Base Excess ABG -11.3 mmol/L (-2.0-2.0); Blood Gas Allen Test Pos; Blood Gas Operator Identificat CAK; Blood Gas Sample Site Radial, left; Blood Gas Sample Type Arterial; HCO3 ABG 14.2 mmol/L (22-26); Oxygen Device VENT
--- NOTE | 2020-01-29 09:25 | PC.NURSE ---
Spoke with pt Brother, gave him an update on condition.
[2020-01-29] MEDS: nystatin powder 15 gm Btl 1 APPLIC TOPICAL (10:27)
[2020-01-29] MEDS: sodium hypochlorite 0.25% Btl 473 mL 1 APPLIC TOPICAL (10:27)
[2020-01-29 10:39] LABS: Glucose Point of Care 128 mg/dL (70-110)
[2020-01-29] MEDS: piperacillin-tazobactam 3.375 GM in sodium chloride 0.9% (plus) 50 ML IV (10:59)
--- NOTE | 2020-01-29 11:07 | PC.NURSE ---
fiction and nonfiction writer prose attempted to decrease levaphed without success. Pt continues to be aggitated, biting tube and restless. Levaphed put back at 12 mcg and Morphine given for pain. Will continue to monitor.
[2020-01-29 11:20] LABS: Glucose Point of Care 112 mg/dL (70-110)
[2020-01-29 11:20] LABS: Glucose Point of Care 107 mg/dL (70-110)
--- NOTE | 2020-01-29 12:26 | P.PN_ITS ---
Subjective Subjective: Interval history: She had woken up somewhat this morning, answering few basic questions, discussion with RN did report head pain, but could not point out, although appeared to shift around on her back, so it was assumed it was in her back. During my visit she appears awake, eyes open, makes eye contact. Does not really answer questions for me. After several requests does with some delay squeeze both hands. Left side appears to be somewhat stronger. Vitals/I&O/Wt Last Vital Signs Temp 98.2 F 01/29/20 12:15 Pulse 67 01/29/20 12:15 Resp 16 01/29/20 11:25 BP 96/71 01/29/20 12:15 Pulse Ox 98 01/29/20 12:15 01/28/20 01/29/20 01/29/20 22:59 06:59 14:59 Intake Total 319.162 / 444.549 593.15 / 1037.699 Output Total 0 / 0 200 / 200 Balance 319.162 / 444.549 393.15 / 837.699 Weight last 48 hrs Weight 87.77 kg Weight 74.117 kg Weight 72.575 kg Physical Exam Const: COMMON NORMALS: no acute distress ORIENTATION/CONSCIOUSNESS: Yes awake OTHER: Somewhat sluggish responses. Appears to be making eye contact. Did not really answer any questions for me. Follows to very basic commands, however. HENMT: COMMON NORMALS: oropharynx normal Neck/C-Spine: COMMON NORMALS: no JVD Resp: COMMON NORMALS: normal respiratory effort AUSCULTATION: diminished lung sounds Cardio: COMMON NORMALS: no JVD, regular rhythm, S1 normal heart sound present, S2 normal heart sound present and No murmurs present (Cardio) RHYTHM: regular rhythm HEART SOUNDS: S1 normal heart sound present and S2 normal heart sound present GI: COMMON NORMALS: Normal to inspection, nondistended, normoactive bowel sounds present, Soft to palpation and non-tender PALPATION: Yes Soft to palpation Extremity: COMMON NORMALS: no joint enlargement and no pedal edema Neuro: COMMON NORMALS: moves all extremities Skin: COMMON NORMALS: no rashes or lesions noted GENERAL SKIN EXAM: no rashes or lesions noted Data : 01/29/20 03:14 01/29/20 03:14 Micro: Microbiology 01/27/20 18:03 Blood Culture - Preliminary Blood NEGATIVE TO DATE 01/27/20 18:10 Blood Culture - Preliminary Blood NEGATIVE TO DATE A&P Assessment and plan (1) Shock: Persistent shock, possibly septic shock secondary to pneumonia. He did show some minimal improvement and was able to titrate down pressor support, although later in the afternoon was reported and again increased. Last night she was showing some possibly agonal breathing, episode of bradycardia overnight. Was visited by family due to overall poor prognosis and concern regarding again cardiac arrest. Overnight family discussion have decided for CODE STATUS to be changed to AND. At this time continue Zosyn, vancomycin. Blood culture so far without growth. Check MRSA PCR. Bacterial antigens. Rapid flu. Rapid COVID. Monitor liver function, with some what appears to be possible shock liver response with AST, OT, alk phos elevation. Troponin elevation suspected due to mismatch and demand and supply. Assess TTE. PPI. Resume low dose heparin VT prophylaxis. Yesterday there was some concern regarding some mild oral bleeding after intubation. This appears to have resolved. Intermittent Ativan for sedation. For now hold propofol due to hypotension, and is not in distress. Avoid Precedex due to bradycardia. Status: Acute (2) Postoperative cardiac arrest: Mental status actually a little bit better today. She is awake, makes eye contact. Appears to have answered some questions for the nurse, although did not for me. Does follow some basic commands, try to squeeze both hands. Left side appears to be little bit stronger. Concern for possible anoxic brain injury following cardiac arrest. Continue to support blood pressure. Monitor improvement in condition. Continue reassessment and goals of care. Cardiac arrest 01/27. Initially patient was bradycardic, and pulse present. During this time a blood pressure was trying to be obtained and dopamine was going to be started. During this time blood pressure could not be obtained easily and although pulse was still faintly present perfusion was in question so CPR was initiated. This continued for at least 2 rounds of CPR, and 2 doses of epinephrine, 1 dose of magnesium secondary to previously noted low magnesium, and 1 dose of bicarb secondary to known metabolic acidosis on admission. Patient was intubated in the interim by SEGUN Raines. Dopamine had been started in the interim from the original order and was weaned down by the end of the code. After moving the patient to ICU it was noted she had some decerebrate posturing. Was empirically started on Keppra. Monitor telemetry. Assess TTE. Status: Acute (3) Panniculitis: Antibiotics and topical antifungals. Status: Acute (4) Non-pressure ulcer of left lower extremity: Extensive eschar with concern of infection. Placed on Zosyn and vancomy jorgito. 2 large areas of black eschar noted on bilateral lower extremities on the right posterior lateral distribution, on the left posterior medial. I do not see any surrounding cellulitis. There is no purulent drainage. 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 Pulses are dopplerable in feet at the DP bilaterally, although not easily palpable. At this time continue antibiotics. Plan was originally for debridement which has been deferred. Blood cultures were drawn Doppler ultrasound in November 2019 with no significant arterial obstruction based on ABIs and TBI's. However, abnormal PVR waveforms may suggest severe peripheral arterial disease. Status: Chronic Qualifiers: Non-pressure ulcer stage: with fat layer exposed Qualified Code(s): L97.922 - Non-pressure chronic ulcer of unspecified part of left lower leg with fat layer exposed (5) Non-pressure ulcer of right lower extremity: See above Status: Chronic Qualifiers: Non-pressure ulcer stage: with fat layer exposed Qualified Code(s): L97.912 - Non-pressure chronic ulcer of unspecified part of right lower leg with fat layer exposed (6) End stage renal disease: Missed hemodialysis prior to presentation. This typically is given Wednesday Status: Chronic (7) Anemia: Multifactorial from chronic kidney disease, known clear cell carcinoma, endometrial carcinoma, as well as other causes Status: Chronic Qualifiers: Anemia type: due to chronic kidney disease Chronic kidney disease stage: on chronic dialysis Qualified Code(s): N18.6 - End stage renal disease; D63.1 - Anemia in chronic kidney disease; Z99.2 - Dependence on renal dialysis (8) Elevated blood sugar: History of glucose intolerance Hemoglobin A1c 5.1. Status: Acute (9) Metastatic renal cell carcinoma: On Carbometyx Status: Chronic Qualifiers: Laterality: left Qualified Code(s): C64.2 - Malignant neoplasm of left kidney, except renal pelvis (10) Endometrial carcinoma: On Femara Status: Chronic Additional A&P Information Possible severe peripheral arterial disease. Chronic pain Hypertension Hyperlipidemia Depression AND Heparin for DVT prophylaxis Prognosis is not good. Attestations Medical Necessity Statement*: Continue admission versus management of shock, septic shock secondary to pneumonia, in the setting of end-stage renal disease and other comorbidities. Critical Care Time: In addition to noncritical issues 35 minutes critical care time was spent on assessment of shock, hypotension persistent despite treatment, pneumonia, antibiotic management, and setting of ESRD, acute encephalopathy following cardiac arrest. Coding Level of Care Code Acute Steam Plant Control Room Operator for Andrea Malcolm Diagnoses Shock R57.9 Postoperative cardiac arrest Panniculitis M79.3 Non-pressure ulcer of left lower extremity L97.922 Non-pressure ulcer stage: with fat layer exposed Non-pressure ulcer of right lower extremity L97.912 Non-pressure ulcer stage: with fat layer exposed End stage renal disease N18.6 Anemia N18.6; D63.1; Z99.2 Anemia type: due to chronic kidney disease Chronic kidney disease stage: on chronic dialysis Elevated blood sugar R73.9 Metastatic renal cell carcinoma C64.2 Laterality: left Endometrial carcinoma C54.1
[2020-01-29] MEDS: hydrocortisone 100 mg/2 mL SDV IVP (12:28)
[2020-01-29] MEDS: pantoprazole 40 mg SDV IVP (12:28)
--- NOTE | 2020-01-29 12:39 | USCV_ITS ---
Vick Shamika Age: 64 Gender: F : 1955 Exam Date: 01/29/2020 13:42 Ordering Phys: Rajiv Jeter MD Technologist: Asa Monsalve Exam Location: [facility] – [place] Indication: TROPONIN ELEVATION BP: 101 / 64 HR: 70 Rhythm: Sinus Technical Quality: Adequate MEASUREMENTS (Male / Female) Normal Values 2D ECHO LV Diastolic Diameter PLAX 4.2 cm 4.2 - 5.9 / 3.9 - 5.3 cm LV Systolic Diameter PLAX 2.6 cm IVS Diastolic Thickness 1.2 cm 0.6 - 1.0 / 0.6 - 0.9 cm IVS Systolic Thickness 1.6 cm LVPW Diastolic Thickness 1.2 cm 0.6 - 1.0 / 0.6 - 0.9 cm LVPW Systolic Thickness 1.8 cm LVOT Diameter 2.1 cm LV Ejection Fraction 2D Teich 68.4 % LV Ejection Fraction MOD 2C 48.6 % LV Ejection Fraction 2C AL 48.5 % LA Diameter 4.4 cm LA Width 4.3 cm LA Height 5.3 cm RA Width 3.7 cm RA Height 4.7 cm M-MODE LV Diastolic Diameter MM 4.3 cm 4.2 - 5.9 / 3.9 - 5.3 cm LV Systolic Diameter MM 2.8 cm LV Ejection Fraction MM Teich 64.1 % IVS Diastolic Thickness MM 1.3 cm 0.6 - 1.0 / 0.6 - 0.9 cm IVS Systolic Thickness MM 1.9 cm LVPW Diastolic Thickness MM 1.4 cm 0.6 - 1.0 / 0.6 - 0.9 cm LVPW Systolic Thickness MM 1.8 cm RV Diastolic Diameter MM 2.9 cm Aortic Annulus Diameter 2.8 cm LA Ao Ratio MM 2.0 MV E Point Septal Separation 1.1 cm DOPPLER AV Peak Velocity 258.3 cm/s LVOT Peak Velocity 80.0 cm/s AV Area Cont Eq vti 1.0 cm squared AV Area Cont Eq pk 1.0 cm squared MV Area PHT 6.9 cm squared Mitral E to A Ratio 1.4 MV E' Velocity 50.5 cm/s Mitral E to MV E' Ratio 14.2 Mitral E to LV E' Lateral Ratio 13.6 Mitral E to LV E' Septal Ratio 14.9 TR Peak Velocity 418.0 cm/s TR Peak Gradient 69.9 mmHg TV Peak E Velocity 163.0 cm/s Right Atrial Pressure 15.0 mmHg Pulmonary Artery Systolic Pressu 84.9 mmHg FINDINGS Left Ventricle Normal left ventricular size and systolic function, EF 60 %. Mild diffuse hypokinesia of the septum Right Ventricle Mildly dilated right ventricle with a slightly diminished ejection fraction Right Atrium Upper limit of normal size Left Atrium Mildly increased left atrial size. Mitral Valve Thickened mitral valve. Trace mitral valve regurgitation. Aortic Valve Thickened aortic valve. Trace aortic valve regurgitation. Tricuspid Valve Moderately sever tricuspid valve regurgitation. Pulmonic Valve Trace pulmonary valve regurgitation. Pericardium Trivial pericardial effusion. Aorta Normal aortic annulus size. CONCLUSIONS Normal left ventricular size and systolic function, EF 60 %. Mild diffuse hypokinesia of the septum. Mildly increased left atrial size. Right atrium, upper limit of normal size Mildly dilated right ventricle with a slightly diminished ejection fraction. Thickened mitral valve. Trace mitral valve regurgitation. Thickened aortic valve. Trace aortic valve regurgitation. Trivial pericardial effusion. There are no intracardiac masses. Compared to the previous study from 12/27/2017, there may not be a significant change Dr Tita Coburn MD FACC (Electronically Signed) Final Date: 29 January 2020 18:29 S
[2020-01-29] MEDS: heparin 5,000 unit/mL INJ 1 mL 5000 UNIT SUBCUT (13:05)
[2020-01-29 14:12] LABS: Influenza A by IFA Negative (Negative); Influenza B by IFA Negative (Negative); SARS Covid-2 Antigen Negative (Negative)
--- NOTE | 2020-01-29 14:55 | PC.NURSE ---
Pt HR drops to 60-70's, prominent ventricular beats, difficult to get BP or pulse ox, unable to palpate dialysis bruit, and pt is diaphoretic. Also unable to obtain pulses even with doppler.
--- NOTE | 2020-01-29 15:02 | PC.NURSE ---
Potassium and Magnesium are both elevated, continues to not be stable enough for dialysis and remains an AND.
--- NOTE | 2020-01-29 15:09 | PC.NURSE ---
O[employer] Field Equipment Mechanic assessed pt, left pupil is a 5/6 nonreactive and right is a [address] Amaro notified. He states he will call family to see if they want a head CT.
--- NOTE | 2020-01-29 15:28 | PC.NURSE ---
No new orders. Pt HR dropped down to 30's and no pulses were found. Heart was not audible. Seven, brother, was notified of pt passing. Extubated at 1529, per orders.
--- NOTE | 2020-01-29 15:40 | PC.NURSE ---
Nurse Contacted [facility] to report pt . Spoke to Lo. Lo advised she will defer this due to the recent history of rising WBC count.
--- NOTE | 2020-01-29 15:57 | PC.NURSE ---
Nurse Received call from Andrew with [facility]. They will not be following her and she can be released.
--- NOTE | 2020-01-29 16:04 | PC.NURSE ---
Spoke to the son. States that he is on his way up here. Post mortem care done.
--- NOTE | 2020-01-29 20:10 | PM.DDS ---
Discharge Providers DDS Date of Admission: 01/27/20 21:16 Date Summary Completed: 01/29/20 Attending Provider at Admission: Bettie Roberts MD Time of : 15:21 Attending Provider at Discharge: Rajiv Jeter Primary Care Provider: Ariel Del Castillo MD DS Diagnoses Hospital Diagnoses (1) Shock: (2) Postoperative cardiac arrest: (3) Panniculitis: (4) Non-pressure ulcer of left lower extremity: Qualifiers: Non-pressure ulcer stage: with fat layer exposed Qualified Code(s): L97.922 - Non-pressure chronic ulcer of unspecified part of left lower leg with fat layer exposed (5) Non-pressure ulcer of right lower extremity: Qualifiers: Non-pressure ulcer stage: with fat layer exposed Qualified Code(s): L97.912 - Non-pressure chronic ulcer of unspecified part of right lower leg with fat layer exposed (6) End stage renal disease: Problem details: HD MWF (7) Anemia: Qualifiers: Anemia type: due to chronic kidney disease Chronic kidney disease stage: on chronic dialysis Qualified Code(s): N18.6 - End stage renal disease; D63.1 - Anemia in chronic kidney disease; Z99.2 - Dependence on renal dialysis (8) Elevated blood sugar: (9) Metastatic renal cell carcinoma: Problem details: Left kidney, metastatic disease left humerus, spine, right occiput, sternum/rib. On Carometyx. Qualifiers: Laterality: left Qualified Code(s): C64.2 - Malignant neoplasm of left kidney, except renal pelvis (10) Endometrial carcinoma: Problem details: Has not had hysterectomy due to comorbid issues. On Femara. Other Contributing Factors/Diagnoses Possible severe peripheral arterial disease. Chronic pain Hypertension Hyperlipidemia Depression Reason for Visit Reason for Visit: leg pain Summary Date and Time of : Date of : 01/29/20 Time of : 15:21 Summary: Summary: 64-year-old lady with ESRD on hemodialysis, history of endometrial carcinoma, metastatic renal cell carcinoma, on Femara and Cabometyx, ovarian mass not investigated due to comorbidities, pulmonary hypertension, TIA, HTN, HLD, chronic anemia was admitted due to abdominal pain, with finding of pancolitis, as well as chronic large ulcerations on both lower extremities with extensive eschar/dry gangrene, irregular in appearance, and 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 Due to concern for skin/soft tissue infection was started on antibiotics. With the [place] order on examination of intertrigo under pannus also treated with nystatin topically. Lower extremities although with large eschar lesions without any surrounding erythema or signs of cellulitis. Due to extent of the wounds surgery was initially consulted with plans for possible debridement. However, during hemodialysis session on 01/27 became unresponsive, hypotensive, bradycardic and went into cardiac arrest. CPR was performed. Was intubated. Achieved ROSC, but without awakening. Due to bradycardia initially started on dobutamine drip, this subsequently was weaned off and had to be switched over to Levophed due to severe hypotension which persisted. EKG without ST elevation, nonspecific changes. Empirically covered with Keppra due to some noted decerebrate posturing and concern that underlying seizure cannot be excluded. CT head without acute abnormality following the event with mcdowell-white differentiation. Preserved on the noncontrast study. In the evening of 01/27 was noted having episode of agonal type breathing, heart rate noted in the 60s. Unmeasurable oxygen saturations. Persistently requiring pressor. Pulses dopplerable but not palpable. Not alert, without any sedation. Condition was discussed with her family and due to poor overall prognosis did come in to spend time with her. Given her extremely severe condition with multiple comorbidities and poor prognosis family decided overnight for CODE STATUS to be changed to AND. Continued with bicarbonate drip for metabolic acidosis. Hypomagnesemia was replaced. She continue with supportive intensive care, antibiotics were continued with Zosyn and vancomycin for possible infection with findings suspicious for pneumonia on chest imaging. Rapid flu and rapid COVID-19 were negative. She continued to require pressor. With persistent shock, suspicion possible septic shock, received a dose of stress steroid. PPI were added. VTE pharmacologic prophylaxis initially held due to concerns of some perioral bleeding, which had resolved and were resumed. She actually did briefly awaken with transient improvement in hypotension. With some persistent encephalopathy, may have answered some basic questions for nursing staff, although I could not elicit this response. Did appear to try to follow commands to squeeze her hands. As was becoming somewhat restless with ET tube low-dose Ativan was added as needed for sedation, propofol, Precedex etc. were avoided due to hypotension and previously some episodes of bradycardia. Noted to have worsened renal function, troponin elevation, liver parameter elevation secondary to shock and hypoperfusion. Extremities cold, although with dopplerable pulses. No findings to support acute ischemic limb. TTE was ordered. She however, decompensated in the afternoon again with worsened hypotension, requiring again more pressor, becoming again unresponsive, with noted disconjugate gaze. CT of the head initially requested with concern for possible edema following anoxic injury, high concern for risk of herniation. Plans of additional assessment in her condition were discussed with her family. I could not reach her son, but we had a long discussion with her brother. He confirmed again to avoid any extraordinary measures, and was going to come over to see her as it was likely she was not going to make it much longer. She was noted to be in asystole almost immediately after the discussion. I could not palpate pulses, with no audible heartbeat at 3:20 PM, with PEA noted on the monitor with occasional beats. Family were notified who were on the way to see her already. Additional Data: Advance directives?: No Discharge Plan Discharge Patient Disposition: At Medical Facility Prescriptions: No Action furosemide [Lasix] 40 mg tablet 40 mg PO QAM Qty: 30 RF: 3 albuterol sulfate 90 mcg/actuation HFA aerosol inhaler 2 inh INHALATION Q6H Qty: 8.5 RF: 1 metolazone 5 mg Tablet 5 mg PO DAILY RF: 0 hydralazine 25 mg Tablet 25 mg PO TID RF: 0 simvastatin 40 mg Tablet 40 mg PO DAILY RF: 0 amlodipine 10 mg Tablet 10 mg PO DAILY RF: 0 docusate sodium [Stool Softener] 100 mg Capsule 100 mg PO DAILY PRN (Reason: Constipation) RF: 0 letrozole 2.5 mg Tablet 2.5 mg PO DAILY RF: 0 fluoxetine [Prozac] 20 mg Capsule 20 mg PO DAILY RF: 0 metoprolol tartrate 25 mg Tablet 25 mg PO BID RF: 0 ergocalciferol (vitamin D2) [Vitamin D2] 1,250 mcg (50,000 unit) Capsule 50,000 unit PO Q7D Qty: 5 RF: 0 calcitriol 0.25 mcg Capsule 0.25 mcg PO DAILY Qty: 30 RF: 0 hydrocodone-acetaminophen 5-325 mg tablet 1 tab PO DAILY Qty: 1 RF: 0 Discharge Date/Time: 01/29/20 15:29 Probable Cause of Probable cause of : Cardiac arrest DS Attestations Time Spent in /Discharge Care*: greater than 30 min Quality - AMI: AMI present?: No Quality - Stroke: CVA present?: No Symptom Onset Unknown: No Quality - VTE: VTE present?: No Deep Vein Thrombosis/Pulmonary Embolism Present on Admission: No Coding Level of Care Code Acute Performance Improvement Specialist for Chg Fwd Diagnoses Shock R57.9 Postoperative cardiac arrest Panniculitis M79.3 Non-pressure ulcer of left lower extremity L97.922 Non-pressure ulcer stage: with fat layer exposed Non-pressure ulcer of right lower extremity L97.912 Non-pressure ulcer stage: with fat layer exposed End stage renal disease N18.6 Anemia N18.6; D63.1; Z99.2 Anemia type: due to chronic kidney disease Chronic kidney disease stage: on chronic dialysis Elevated blood sugar R73.9 Metastatic renal cell carcinoma C64.2 Laterality: left Endometrial carcinoma C54.1
== END 2020-01-29 15:29 | disposition expired | DRG 606 ==
LOC: ER 19:09 → MEDSURG 21:24 → ICU 01-28 09:26
PROVIDERS: Family Medicine; Internal Medicine; Admitting Provider Hospitalist; Emergency Provider Emergency Medicine; PCP Family Medicine; Visit Provider Internal Medicine
DX: M79.3 Panniculitis, unspecified (principal); N18.6 End stage renal disease; J18.9 Pneumonia, unspecified organism; R65.21 Severe sepsis with septic shock; A41.9 Sepsis, unspecified organism; L97.922 Non-pressure chronic ulcer of unspecified part of left lower leg with fat layer exposed; L97.912 Non-pressure chronic ulcer of unspecified part of right lower leg with fat layer exposed; I12.0 Hypertensive chronic kidney disease with stage 5 chronic kidney disease or end stage renal disease; I97.121 Postprocedural cardiac arrest following other surgery; K51.00 Ulcerative (chronic) pancolitis without complications; C79.51 Secondary malignant neoplasm of bone; C79.89 Secondary malignant neoplasm of other specified sites; C79.02 Secondary malignant neoplasm of left kidney and renal pelvis; E87.2 Acidosis; D63.1 Anemia in chronic kidney disease; Z99.2 Dependence on renal dialysis; R57.8 Other shock; F32.9 Major depressive disorder, single episode, unspecified; G89.29 Other chronic pain; E78.5 Hyperlipidemia, unspecified; I73.9 Peripheral vascular disease, unspecified; C54.1 Malignant neoplasm of endometrium; I27.20 Pulmonary hypertension, unspecified; Z86.73 Personal history of transient ischemic attack (TIA), and cerebral infarction without residual deficits; I95.9 Hypotension, unspecified; R00.1 Bradycardia, unspecified; Z20.828 Contact with and (suspected) exposure to other viral communicable diseases; E83.42 Hypomagnesemia; Z91.15 Patient's noncompliance with renal dialysis
CPT/HCPCS: 12345; 36415; 36416; 36600; 70450; 71045; 80048; 80051; 80053; 81001; 82803; 82810; 82962; 83036; 83540; 83550; 83735; 83986; 84100; 84484; 85007; 85025; 85027; 85610; 85651; 85730; 86140; 86850; 86900; 86920; 87040; 87426; 87804; 93005; 93306; 94002; 94003; 94799; 96372; 96375; 99283; C9113; J0171; J1265; J1450; J1644; J1720; J1953; J2060; J2270; J2405; J2543; J3475; J7040; Q3014